=== PATIENT | female | born 1955 | race Caucasian/White ===

== ENCOUNTER → 2019-10-08 11:43 | Outpatient (CLI) | payer OTHER, SELFPAY ==
--- NOTE | ~2019-10-08 | XR_ITS ---
XR hand BI arthritis min 3V 10/08/2019 12:05 Indication: Polyarticular joint pain Procedure: 4 views of each hand Comparison: No prior studies for comparison. Findings: Right hand: There is mild osteoarthritis of the first CMC, MCP and IP joints. There is mild -moderate polyarticular osteoarthritis of the second-fifth MCP joints. There are mild degenerative ch anges of the second and fifth distal interphalangeal joints. No fracture or traumatic malalignment. Left hand: There are moderate degenerative changes of the first MCP joint. There is degenerative subc hondral cyst formation base of the first metacarpal. There is moderate osteoarthritis of the MCP join ts otherwise. There is mild osteoarthritis of the second and fifth DIP joint. Impression: 1: Mild-moderate polyarticular osteoarthritis bilaterally. Reviewed, dictated and finalized at location A. T SERVICES Impression: 1: Mild-moderate polyarticular osteoarthritis bilaterally.
== END ==
PROVIDERS: PCP Family Medicine; Visit Provider Nurse Practitioner
DX: M25.40 Effusion, unspecified joint (principal); M19.041 Primary osteoarthritis, right hand; M19.042 Primary osteoarthritis, left hand
CPT/HCPCS: 73130

== ENCOUNTER 2020-01-20 15:23 | Outpatient (CLI) | payer OTHER, SELFPAY ==
--- NOTE | ~2020-01-20 | XR_ITS ---
XR chest 2V DATE: 01/20/2020 15:43 INDICATION: Cough, shortness of breath. History of COPD. TECHNIQUE: PA and lateral views COMPARISON: None FINDINGS: Normal heart size. There is aortic arch and descending thoracic and abdominal aortic calcif ication. No hilar or mediastinal enlargement. Bilateral hyperinflation and relative flattening of the diaphragm, consistent with COPD. No pulmonary infiltrate or consolidation, pleural effusion or pulmonary vascular congestion or pneumo thorax. Old healed right rib fractures. Diffuse osteopenia. IMPRESSION: COPD No active cardiopulmonary disease Osteopenia Aortic atherosclerosis Reviewed, dictated and finalized at location A.
== END 2020-01-20 15:24 | disposition home or self-care (01) ==
PROVIDERS: PCP Nurse Practitioner; Visit Provider Internal Medicine
DX: R05 Cough (principal); M85.88 Other specified disorders of bone density and structure, other site; I70.0 Atherosclerosis of aorta
CPT/HCPCS: 71046

== ENCOUNTER 2020-05-10 07:55 | Outpatient (CLI) | payer OTHER, SELFPAY ==
--- NOTE | ~2020-05-10 | XR_ITS ---
EXAMINATION: XR chest 2V DATE: 05/10/2020 08:17 INDICATION: Cough. COVID-19 positive. TECHNIQUE: Frontal and lateral views of the chest were obtained. COMPARISON: Chest 2 views 01/20/2020 FINDINGS: The lungs are hyperexpanded with lucencies, consistent with emphysema. There is mild atelec tasis versus scarring at right lung base. No pleural effusion or pneumothorax. The heart size is norm al. There are multiple old healed right rib fractures. IMPRESSION: 1. Mild atelectasis versus scarring at right lung base. 2. Emphysema. Reviewed, dictated and finalized at location A.
== END 2020-05-10 07:56 | disposition home or self-care (01) ==
LOC: ANHIMG 08:04
PROVIDERS: PCP Nurse Practitioner; Visit Provider Nurse Practitioner
DX: R05 Cough (principal); R91.8 Other nonspecific abnormal finding of lung field; J43.9 Emphysema, unspecified
CPT/HCPCS: 71046

== ENCOUNTER 2020-06-12 14:27 | Outpatient (CLI) | payer OTHER, SELFPAY ==
--- NOTE | ~2020-06-12 | XR_ITS ---
EXAMINATION: XR scapula RT INDICATION: Right shoulder pain TECHNIQUE: Two views of the right scapula are obtained. COMPARISON: 06/29/2014 FINDINGS: There is no fracture, dislocation, or subluxation. The bones, soft tissues, and joint space s are normal. Heterotopic ossification is again noted superior to the acromioclavicular joint. Healed right-sided rib fractures are noted. IMPRESSION: 1. No acute osseous abnormality. Reviewed, dictated and finalized at location A.
== END 2020-06-12 14:28 | disposition home or self-care (01) ==
PROVIDERS: PCP Nurse Practitioner Family; Visit Provider Nurse Practitioner Family
DX: M89.8X1 Other specified disorders of bone, shoulder (principal)
CPT/HCPCS: 73010

== ENCOUNTER → 2020-08-23 10:13 | Outpatient (CLI) | payer OTHER, SELFPAY ==
--- NOTE | ~2020-08-23 | CT_ITS ---
EXAMINATION: CT abdomen wo con EXAM DATE: 08/23/2020 10:39 INDICATION: Abnormal right adrenal gland, lung field abnormality. TECHNIQUE: Spiral CT of the abdomen was performed without contrast. Axial, coronal and sagittal rosalba ges were reviewed. The dose-length product (DLP) for this examination was 120.61 mGy-cm. The exposu re was tailored according to patient size (auto mA exposure control), and iterative reconstruction (A SIR) was used as additional dose reduction technique. Correlation is made to Chest x-ray 05/10/2020 FINDINGS: There is a 9 mm right adrenal gland nodule measuring 16 Hounsfield units. Statistically mos t likely adenoma in absence of known primary malignancy. Liver, left adrenal gland, spleen and pancr eas are unremarkable. Gallbladder is unremarkable. No biliary obstruction. There is no nephrolithi asis or hydronephrosis. There is no retroperitoneal lymphadenopathy. The stomach and small bowel are unremarkable. There is large amount of colonic stool. No free intr aperitoneal gas. The heart is normal in size. There are no pericardial or pleural effusions. Evid ence of moderate hyperinflation and emphysema. Lung bases are clear. There are no osteoblastic or o steolytic lesions identified. IMPRESSION: 1. Subcentimeter right adrenal gland lesion likely adenoma. 2. Emphysema and hyperinflation. Reviewed, dictated and finalized at location A. 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
== END ==
PROVIDERS: PCP Nurse Practitioner Family; Visit Provider Nurse Practitioner Family
DX: R91.8 Other nonspecific abnormal finding of lung field (principal); E27.8 Other specified disorders of adrenal gland; J43.9 Emphysema, unspecified
CPT/HCPCS: 74150

== ENCOUNTER 2020-09-30 15:26 | Inpatient (IN) | payer OTHER, MEDICARE, SELFPAY ==
[2020-09-30] VITALS (8 sets, daily range): BP systolic 113–140; BP diastolic 46–63; PULSE 100–110; RESP 18–22; TEMP 37–37.9; O2SAT 89–98; BMI 19.8
--- NOTE | ~2020-09-30 | XR_ITS ---
EXAMINATION: XR chest 2V EXAM DATE: 09/30/2020 16:32 INDICATION: Left flank pain. Fever. History of COPD. TECHNIQUE: Frontal and lateral projections of the chest obtained and reviewed. Comparison is made to prior examination from 05/10/2020. FINDINGS: Interval development of extensive left lower lobe acute airspace disease, appearance is mo st consistent with bacterial pneumonia but please clinically correlate. The lungs are otherwise clear . There are no pleural effusions. The cardiomediastinal silhouette is within normal limits. There is no pneumothorax suspected. There are mild bony degenerative changes. There is aortic arterioscler osis. IMPRESSION: Multi segmental left lower lobe consolidation, most consistent with bacterial pneumonia. Reviewed, dictated and finalized at location A. NOPATHOLOGIST
--- NOTE | 2020-09-30 15:43 | ECG_ITS ---
Measurements Intervals [place] Rate: 99 P: 70 NE: 151 QRS: 38 QRSD: 94 T: 43 QT: 315 QTc: 405 Interpretive Statements SINUS RHYTHM DELAYED PRECORDIAL R/S TRANSITION BORDERLINE ECG Electronically Signed On 10-01-2020 7:35:25 GROUP COUNSELOR by Ephraim Romeo D.O.
[2020-09-30] MEDS: SODIUM CHLORIDE 0.9% IV 1,000 ML 999 ML IV CONT (16:04)
[2020-09-30 16:07] LABS: Basophils Percent Auto 0.2 % (0.2-1.2); Eosinophils Percent Auto 0.1 % (0-4.4); Hematocrit 29.1 % (37.0-47.0); Hemoglobin 9.9 g/dL (12.0-15.0); Immature Granulocyte Absolute 0.09 K/mm3 (0.00-0.031); Immature Granulocyte Percent A 0.5 % (0-0.5); Lymphocytes Absolute Auto 8.69 K/mm3 (0.9-3.2); Lymphocytes Percent Auto 43.7 % (18.3-44.2); Mean Corpuscular Hemoglobin 30.3 pg (26-34); Mean Platelet Volume 8.5 fl (7.4-10.4); Monocytes Absolute Auto 0.8 K/mm3 (0.1-0.6); Monocytes Percent Auto 3.8 % (2.6-8.5); Neutrophils Absolute Auto 10.3 K/mm3 (1.3-6.7); Neutrophils Percent Auto 51.7 % (45.5-73.1); Platelet Count Result 375 k/mm3 (150-375); Red Blood Count 3.27 M/mm3 (4.2-5.4); Red Cell Distribution Width 12.2 % (11.5-14.5); White Blood Count 19.9 K/mm3 (4.5-10.0)
[2020-09-30 16:07] LABS: Alveolar/Arterial O2 Gradient 58.1 mmHg; Base Excess ABG -2.8 mEq/l (+/-2.0); Fractional Inspired Oxygen 21 %; HCO3 ABG 20.9 mEq/l (22.0-26.0); Oxygen Content ABG 12.6 %vol (16.0-22.0); Oxygen Saturation ABG 88.5 % (95.0-100.0); Oxyhemoglobin 87.4 % THb (90.0-100.0); PCO2 ABG 32.5 mmHg (35.0-45.0); PO2 ABG 52.7 mmHg (80.0-100.0); PO2 FiO2 Ratio Arterial Blood 2.51 %; Site Drawn LEFT BRACHIAL; Total Hemoglobin 10.2 g/dL (12.0-18.0); pH ABG 7.427 (7.350-7.450)
[2020-09-30 16:08] LABS: Device ROOM AIR
[2020-09-30 16:18] LABS: Lactic Acid Reflex 0.8 mmol/L (0.7-2.1)
[2020-09-30 16:19] LABS: Prothrombin Time 14.2 Seconds (11.1-14.7)
[2020-09-30 16:20] LABS: Partial Thromboplastin Time 35.3 SECONDS (22.3-36.8)
[2020-09-30 16:28] LABS: Alanine Aminotransferase 17 U/L (4-35); Albumin Level 3.7 g/dL (3.5-5.1); Alkaline Phosphatase 74 U/L (38-126); Anion Gap 5 mmol/L (8-16); Aspartate Amino Transferase 23 U/L (14-36); Bilirubin,Total 0.5 mg/dL (0.2-1.3); Blood Urea Nitrogen 7 mg/dL (7-17); Calcium 9.1 mg/dL (8.4-10.2); Carbon Dioxide 25 mmol/L (22-30); Chloride 96 mmol/L (98-107); Estimated CRCL calculation 55 ml/min; Estimated Glomerular Filt Rate > 60; Glucose 155 mg/dL (65-105); Lipase 19 U/L (23-300); Potassium 4.1 mmol/L (3.4-5.0); Sodium 126 mmol/L (137-145)
--- NOTE | 2020-09-30 16:49 | ED.GENADULT ---
HPI - General Adult General Chief complaint: Back Pain/Injury Stated complaint: fever, l flank pain Time Seen by Provider: 09/30/20 15:37 Source: patient Mode of arrival: ambulatory Limitations: no limitations History of Present Illness HPI narrative: 65 years old white female presents with left lower chest and left flank sharp pain started 3 days ago. Associated with fever and dry cough. Patient reports the pain gets worse with deep breathing and certain movements. Better at rest. Tested positive for Covid April 2020, currently denying exposure to anybody having Covid. Related Data Allergies Allergy/AdvReac Type Severity Reaction Status Date / Time Sulfa (Sulfonamide Allergy Intermediate rash / Verified 09/30/20 15:36 Antibiotics) hives Penicillins Allergy Mild rash Verified 09/30/20 15:36 Review of Systems Review of Systems: Narrative: CONSTITUTIONAL: Denies fever, chills, or sweats. EYES: Denies visual changes, redness, or discharge. ENT: Denies rhinorrhea, congestion, sore throat, or otalgia. CARDIOVASCULAR: Denies chest pain, palpitations, or edema. RESPIRATORY: Denies cough or dyspnea. GASTROINTESTINAL: Denies abdominal pain, nausea, vomiting, or diarrhea. GENITOURINARY: Denies dysuria or hematuria. SKIN: Denies rash or itching. MUSCULOSKELETAL: Denies back pain, joint pain, or myalgia. NEUROLOGIC: Denies headache, numbness, or weakness. PSYCHIATRIC: Denies anxiety or depression. PMFSH Past Medical History Medical History (Updated 09/30/20 @ 17:18 by Anthony Swift MD) Chronic obstructive pulmonary disease Mild episode of recurrent major depressive disorder Persistent dry cough Tobacco use disorder, continuous Family History Family History Father Family history of suicide, Onset Age: 53 Mother Family history of chronic obstructive pulmonary disease, Onset Age: 76 Family history of congestive heart failure, Onset Age: 76 Social History Social History Smoking status: Former smoker Tobacco type: e-cigarettes/vaping Second hand tobacco smoke exposure: No Alcohol intake: never Gender identity (if verbalized by the patient): Female Exam Narrative: Exam Narrative: General appearance: Well-developed, well-nourished Skin: Normal color Head: Normocephalic, nontraumatic Eyes: Clear conjunctiva ENT: Oropharynx normal, ears normal, nose normal Neck: Supple, nontender Chest and respiratory: Airway patent, no respiratory distress, no accessory muscle use, decreased breath sound left lower lobe Heart: Regular rate/rhythm Abdomen: Soft, left flank and left lower ribs tenderness, no bruises, no swelling, no rash, no organomegaly, quiet bowel sounds Vascular: Normal peripheral pulses, normal capillary refill. Musculoskeletal: Normal range of motion, nontender back Neurologic: Alert and oriented ?3, AUTOMATIC LATHE SETTER is normal as tested, no gross motor deficit Course Course Emergency Course: Improving Vital Signs Vital signs: Vital Signs Temperature 37.4 C 09/30/20 15:28 Pulse Rate 110 H 09/30/20 15:28 Respiratory Rate 22 H 09/30/20 15:28 Blood Pressure 140/63 09/30/20 15:28 Pulse Oximetry 89 L 09/30/20 15:28 Temperature 37.4 C 09/30/20 15:28 Pulse Rate 110 H 09/30/20 15:28 Respiratory Rate 22 H 09/30/20 15:28 Blood Pressure 140/63 09/30/20 15:28 Pulse Oximetry 89 L 09/30/20 15:28 Medical Decision Making MDM Narrative Medical decision making narrative: Patient presents with shortness of breath, and fever. Pneumonia is my concern. Labs, chest x-ray, ABG on room air, blood
[2020-09-30 17:07] LABS: CRP 29.9 mg/dL (<1.0)
[2020-09-30 17:10] LABS: Add Urine Microscopic? YES; Appearance Urine Clear (Clear); Bilirubin Urine Negative (Negative); Blood Urine 1+ (Negative); Color Urine Yellow (Yellow); Glucose Urine UA 1+ mg/dL (Negative); Ketones Urine Negative (Negative); Leukocyte Esterase Ur Trace LEU/UL (Negative); Mucus Urine Rare /lpf; Nitrate Urine Negative (Negative); Protein Urine 1+ mg/dL (Negative); Specific Grav Ur 1.011 (1.001-1.035); Squamous Epithelial Cell Urine Few /hpf (Few); Urobilinogen Urine Negative mg/dL (<2.0); WBC Urine 0-3 /hpf
[2020-09-30] MEDS: ACETAMINOPHEN 325 MG TABLET 650 MG PO (17:13)
[2020-09-30] MEDS: ONDANSETRON INJ 4 MG/2 ML VIAL IV PUSH (17:30)
[2020-09-30] MEDS: MORPHINE SULFATE (*CRX) 4 MG/ML INJ IV PUSH (17:30)
[2020-09-30] MEDS: KETOROLAC 30 MG/ML VIAL (*BKC) IV PUSH (17:30)
[2020-09-30] MEDS: SODIUM CHLORIDE 0.9% IV 1,000 ML 60 ML IV CONT (17:35)
--- NOTE | 2020-09-30 17:52 | ADMGEN ---
This patient, Chencho Conn, was admitted to [facility] Surg Room 328-01 @ 1753. Patient/family oriented to hospital policies and general routines including ID bracelet, bed and alarms, visiting hours, pain management, procedures, bathroom and other care routines, personal items, smoking policy, room service/diet, and visiting hours. Information on how to activate the Rapid Response Team has been discussed. Patient/Family are encouraged to report perceived risks to care and to ask questions if they do not understand what they are told or what they should do.
--- NOTE | 2020-09-30 21:30 | PM.IMHP ---
H&P: HPI History of Present Illness Date/Time: 09/30/20 21:30 Chief Complaint: Fever, left-sided pain. Narrative: This is a pleasant 65-year-old female, former smoker who now vapes, with COPD/emphysema who presented to the emergency department earlier today from home with reports of fever and left-sided pain. She awoke on with left flank pain, body aches, and fever up to 102?, which have persisted for the last several days. The pain is described as sharp and shooting in nature, worse with deep inspiration, cough, and movement. She was seen at urgent care yesterday, concerned for urinary tract infection or kidney stone given the location of the pain however that was unremarkable. Her symptoms have continued and thus she came in for evaluation today. She was found to have a left lung pneumonia with moderate hyponatremia for which she is being admitted. At the time my evaluation she is receiving a nebulizer and reports having used her nebulizer and rescue inhaler a couple of times over the past 2 days due to increasing shortness of breath from baseline. She has also had a dry cough, nausea, and dry heaves. She had COVID in April 2020 and has not been exposed to any illnesses recently. She lives in her own home and has been off work for some time as she has a right shoulder injury and is currently on worker's compensation. Review of Systems Review of Systems: Narrative: No significant headache. She always has mild sinus congestion and postnasal drip. No otalgia or odynophagia. She denies dysphagia and concerns for aspiration. No vomiting or diarrhea. No dysuria or hematuria. No exertional chest pain. No melena or hematochezia. Except as documented, all other systems were reviewed and are negative. [facility] Past Medical History Medical History (Updated 09/30/20 @ 22:36 by Breann Shearer PA-C) Arthritis Chronic obstructive pulmonary disease COVID-19 (~04/2020) Emphysema of lung Gastroesophageal reflux disease Mild episode of recurrent major depressive disorder Persistent dry cough Right rotator cuff tear Scheduled for surgery sometime in early 2020. Tobacco use disorder, continuous Patient quit smoking in 2018 and has been vaping since that time. Surgical History Surgical History (Updated 09/30/20 @ 22:31 by Breann Shearer PA-C) History of arthroscopic knee surgery History of hysterectomy History of local excision of skin lesion Benign papilloma of the left upper lip. Status post excision of lipoma Mid upper back. Family History Family History Father Family history of suicide, Onset Age: 53 Mother Family history of congestive heart failure, Onset Age: 76 Family history of chronic obstructive pulmonary disease Daughter Seizure Social History Social History (Updated 09/30/20 @ 22:32 by Breann Shearer PA-C) Social History: The patient lives alone in [place] with her dog. She smoked a pack of cigarettes a day for 50 years and quit in 2019. Now vapes. No significant alcohol use. No illicit substance use. Her son George and daughter Katja are her surrogate decision makers and she wishes to be a full code. Smoking packs per day: 1 Smoking cigarettes per day: 20.0 Years smoked: 50 Smoking pack-years: 50.00 Smoking status: Current every day smoker Tobacco type: cigarettes and e-cigarettes/vaping Second hand tobacco smoke exposure: No Additional smoking assessment comments: former cig smoker, vapes currently Alcohol intake: never Substance use: former Substance use type: does not use Gender identity (if verbalized by the patient): Female Spiritual care concerns: No Meds Home Medications and Allergies Home Medications Medication Instructions Recorded Confirmed Type Advair Diskus 250 mcg-50 mcg/dose See Rx Instructions .ROUTE 07/26/20 09/30/20 Rx powder for inhalation .CO
[2020-09-30] MEDS: IPRATROPIUM BR 0.02% INH SOLN 0.5 MG/2.5 ML VIAL INHALATION (22:03)
[2020-09-30] MEDS: ALBUTEROL SULFATE NEB 2.5 MG/0.5 ML INH 5 MG INHALATION (22:03)
[2020-09-30 23:52] LABS: Sodium 128 mmol/L (137-145)
[2020-10-01] VITALS (13 sets, daily range): BP systolic 102–153; BP diastolic 52–89; PULSE 91–104; RESP 18–22; TEMP 37–38; O2SAT 92–100
[2020-10-01] MEDS: NICOTINE (*PBKC) 14 MG PATCH 1 PATCH TRANSDERM ×2 (00:58→08:48)
[2020-10-01] MEDS: traZODone HCL 25 MG TABLET BY MOUTH ×2 (00:59→22:03)
[2020-10-01 02:26] LABS: Sodium Urine Random 8 meq/L
[2020-10-01 02:27] LABS: Creatinine Urine 54.8 mg/dL
[2020-10-01 03:08] LABS: Iron 11 ug/dL (37-170)
[2020-10-01 03:17] LABS: Percent Iron Saturation 4 % (20-50)
[2020-10-01 04:24] LABS: Folic Acid > 20.0 ng/mL (2.76->20)
[2020-10-01 06:58] LABS: Hematocrit 27.2 % (37.0-47.0); Hemoglobin 8.9 g/dL (12.0-15.0); Mean Corpuscular HGB Conc 32.7 g/dl (32-36); Mean Corpuscular Hemoglobin 29.5 pg (26-34); Mean Corpuscular Volume 90.1 fl (80-100); Mean Platelet Volume 8.4 fl (7.4-10.4); Platelet Count Result 372 k/mm3 (150-375); Red Blood Count 3.02 M/mm3 (4.2-5.4); Red Cell Distribution Width 12.4 % (11.5-14.5); White Blood Count 17.9 K/mm3 (4.5-10.0)
[2020-10-01 07:31] LABS: Anion Gap 5 mmol/L (8-16); Blood Urea Nitrogen 7 mg/dL (7-17); Calcium 8.7 mg/dL (8.4-10.2); Carbon Dioxide 27 mmol/L (22-30); Chloride 98 mmol/L (98-107); Estimated CRCL calculation 58 ml/min; Estimated Glomerular Filt Rate > 60; Glucose 107 mg/dL (65-105); Magnesium 1.9 mg/dL (1.6-2.3); Potassium 4.1 mmol/L (3.4-5.0); Sodium 130 mmol/L (137-145)
[2020-10-01] MEDS: HYDROcodone/acetaminophen (*CRX) 5-325 MG TABLET 1 TAB PO ×2 (08:53→15:44)
[2020-10-01] MEDS: buPROPion HCL SR (12HR) 100 MG TABCR 200 MG PO ×2 (10:58→16:55)
--- NOTE | 2020-10-01 13:31 | PM.IMPN ---
Progress Note: A&P Assessment and Plan (1) Sepsis: Code(s): A41.9 - Sepsis, unspecified organism Status: Acute Assessment and Plan: Patient presents with complaints of left sided chest pain and fever. She met sepsis criteria on admission with fever, tachycardia, and leukocytosis in the setting of pneumonia. Lactic acid level is within normal limits. Follow closely (2) Community acquired pneumonia: Qualifiers: Laterality: left Lung location: lower lobe of lung Qualified Code(s): J18.9 - Pneumonia, unspecified organism Code(s): J18.9 - Pneumonia, unspecified organism Status: Acute Assessment and Plan: CXR showing LLL PNA. Doubt PE. She was started on azithromycin and ceftriaxone for presumed bacterial pneumonia. COVID-19 testing performed and is pending. BCx pending. Sputum culture ordered. Legionella, strep pneumoniae, and mycoplasma pending. WBC better today. Continue IV abx. (3) Chronic obstructive pulmonary disease: Code(s): J44.9 - Chronic obstructive pulmonary disease, unspecified Status: Chronic Assessment and Plan: Stable. Consider steroids for COPD but currently she is doing well on 2L. Wean O2 as tolerated. (4) Hyponatremia: Code(s): E87.1 - Hypo-osmolality and hyponatremia Status: Acute Assessment and Plan: For the hyponatremia, Ana 8 so suspect related to dehydration. Repeat Na level better. IV fluids have been stopped. Continue to follow (5) Normocytic anemia: Code(s): D64.9 - Anemia, unspecified Status: Acute Assessment and Plan: Hgb 9.9 on admission and has dropped to 8.9 today. Iron studies consistent with anemia of chronic disease. Last Hgb was normal in 2016 but not recent values. Continue to monitor. (6) Nicotine vapor product user: Code(s): Z72.0 - Tobacco use Status: Acute Assessment and Plan: Educated about the benefits of abstaining from all nicotine products. (7) DVT prophylaxis: Code(s): Z29.9 - Encounter for prophylactic measures, unspecified Status: Acute Assessment and Plan: Lovenox for DVT prophylaxis. Subjective Date/time seen: 10/01/20 13:31 Interval history: Date of service 10/01 65yo female with hx of COVID in April, COPD and ongoing tobacco use here for fever and left-sided pain. Patient still with the left flank pain that is pleuritic. Also with abd pain that she feels may be related to coughing. Persistent cough. Eating okay. No n/v/d. She states she has residual anosmia and dysgeusia from previous COVID infection. Exam Narrative: Exam Narrative: Tm 100.2 99.7 131/55 104 20 97% 2L Gen - thin female in NARD sitting up in bed Chest - very distant BS, no wheezing CV - RRR S1/S2 Abd - soft, diffusely tender to even light touch, +BS Ext - No pedal edema; no cords; negative Emeterio's Psych - Nml mood and affect Skin - Warm and dry Objective Data Vital Signs Vital Signs: Vital Signs - 24 hr 09/30/20 15:28 09/30/20 17:13 09/30/20 17:42 Temperature 99.4 F 100.2 F H Pulse Rate 110 H 105 H Respiratory Rate 22 H 18 Blood Pressure 140/63 117/46 L Pulse Oximetry 89 L 98 09/30/20 17:55 09/30/20 20:00 09/30/20 22:00 Temperature 99.0 F 98.6 F 98.6 F Pulse Rate 100 106 H 106 H Respiratory Rate 18 22 H 22 H Blood Pressure 113/48 L 113/50 L 113/50 L Pulse Oximetry 97 90 90 09/30/20 22:03 09/30/20 22:13 10/01/20 04:00 Temperature 100.0 F H Pulse Rate 105 H 103 H 100 Respiratory Rate 18 18 22 H Blood Pressure 153/52 H Pulse Oximetry 93 100 10/01/20 08:00 Temperature 99.7 F H Pulse Rate 104 H Respiratory Rate 20 Blood Pressure 131/55 L Pulse Oximetry 97 Intake/Output Intake/Output: Intake & Output 09/28/20 09/29/20 09/30/20 10/01/20 23:59 23:59 23:59 23:59 Intake Total 1050 400 Output Total 600 Balance 1050 -200 Meds/Results Medicatio
--- NOTE | 2020-10-01 14:06 | PCRCNOTE ---
Window of time for administration has passed. See next scheduled administration.
[2020-10-01] MEDS: ALBUTEROL SULFATE NEB 2.5 MG/0.5 ML INH 5 MG INHALATION ×2 (14:38→21:25)
[2020-10-01] MEDS: IPRATROPIUM BR 0.02% INH SOLN 0.5 MG/2.5 ML VIAL INHALATION ×2 (14:38→21:25)
[2020-10-01] MEDS: ALBUTEROL SULFATE (*SP) AEROSOL 1 PUFF INHALATION (17:15)
[2020-10-01 17:16] LABS: SARS-CoV-2 RNA PCR Negative
[2020-10-01] MEDS: FLUTICASONE/SALMETEROL 115-21 MCG INHALER 1 PUFF 2 PUFF INHALATION (17:20)
[2020-10-01] MEDS: IBUPROFEN 400 MG TABLET PO (17:40)
[2020-10-02] VITALS (10 sets, daily range): BP systolic 113–139; BP diastolic 49–69; PULSE 95–105; RESP 18–20; TEMP 36.8–37.4; O2SAT 92–97
[2020-10-02] MEDS: HYDROcodone/acetaminophen (*CRX) 5-325 MG TABLET 1 TAB PO ×3 (02:26→16:49)
[2020-10-02] MEDS: IPRATROPIUM BR 0.02% INH SOLN 0.5 MG/2.5 ML VIAL INHALATION ×4 (03:25→20:43)
[2020-10-02] MEDS: ALBUTEROL SULFATE NEB 2.5 MG/0.5 ML INH 5 MG INHALATION ×3 (03:25→20:43)
[2020-10-02 06:19] LABS: Basophils Percent Auto 0.2 % (0.2-1.2); Eosinophils Percent Auto 0.2 % (0-4.4); Hematocrit 24.4 % (37.0-47.0); Hemoglobin 8.1 g/dL (12.0-15.0); Immature Granulocyte Absolute 0.04 K/mm3 (0.00-0.031); Immature Granulocyte Percent A 0.3 % (0-0.5); Lymphocytes Absolute Auto 5.78 K/mm3 (0.9-3.2); Lymphocytes Percent Auto 46.8 % (18.3-44.2); Mean Corpuscular HGB Conc 33.2 g/dl (32-36); Mean Corpuscular Hemoglobin 29.9 pg (26-34); Mean Platelet Volume 7.9 fl (7.4-10.4); Monocytes Absolute Auto 0.6 K/mm3 (0.1-0.6); Monocytes Percent Auto 4.9 % (2.6-8.5); Neutrophils Absolute Auto 5.9 K/mm3 (1.3-6.7); Neutrophils Percent Auto 47.6 % (45.5-73.1); Platelet Count Result 345 k/mm3 (150-375); Red Blood Count 2.71 M/mm3 (4.2-5.4); Red Cell Distribution Width 12.4 % (11.5-14.5); White Blood Count 12.3 K/mm3 (4.5-10.0)
[2020-10-02 06:32] LABS: Anion Gap 3 mmol/L (8-16); Blood Urea Nitrogen 7 mg/dL (7-17); Calcium 8.4 mg/dL (8.4-10.2); Carbon Dioxide 30 mmol/L (22-30); Chloride 100 mmol/L (98-107); Estimated CRCL calculation 58 ml/min; Estimated Glomerular Filt Rate > 60; Glucose 124 mg/dL (65-105); Phosphorus 2.3 mg/dL (2.5-4.5); Potassium 3.8 mmol/L (3.4-5.0); Sodium 133 mmol/L (137-145)
[2020-10-02] MEDS: NICOTINE (*PBKC) 14 MG PATCH 1 PATCH TRANSDERM (09:43)
[2020-10-02] MEDS: buPROPion HCL SR (12HR) 100 MG TABCR 200 MG PO ×2 (09:43→16:49)
[2020-10-02] MEDS: POTASSIUM/PHOSPHORUS/SODIUM 1.5 GM PACKET 1 PACKET PO (09:43)
[2020-10-02] MEDS: FLUTICASONE/SALMETEROL 115-21 MCG INHALER 1 PUFF 2 PUFF INHALATION ×2 (09:48→20:21)
--- NOTE | 2020-10-02 11:43 | PCRCNOTE ---
Window of time for administration has passed. See next scheduled administration.[id number]
--- NOTE | 2020-10-02 16:49 | PM.IMPN ---
Progress Note: A&P Assessment and Plan (1) Sepsis: Code(s): A41.9 - Sepsis, unspecified organism Status: Acute Assessment and Plan: Patient presents with complaints of left sided chest pain and fever. She met sepsis criteria on admission with fever, tachycardia, and leukocytosis in the setting of pneumonia. Lactic acid level is within normal limits. Follow closely (2) Community acquired pneumonia: Qualifiers: Laterality: left Lung location: lower lobe of lung Qualified Code(s): J18.9 - Pneumonia, unspecified organism Code(s): J18.9 - Pneumonia, unspecified organism Status: Acute Assessment and Plan: CXR showing LLL PNA. Doubt PE. She was started on azithromycin and ceftriaxone for presumed bacterial pneumonia. COVID-19 testing negative. BCx NGTD. Sputum culture ordered. Legionella, strep pneumoniae, and mycoplasma pending. WBC better again today. Continue IV abx. (3) Chronic obstructive pulmonary disease: Code(s): J44.9 - Chronic obstructive pulmonary disease, unspecified Status: Chronic Assessment and Plan: Stable. Consider steroids for COPD but currently she is doing well on 2L. Wean O2 as tolerated. She is requesting discharge. Ed order home O2 evaluation for possible discharge home tomorrow with O2. (4) Hyponatremia: Code(s): E87.1 - Hypo-osmolality and hyponatremia Status: Acute Assessment and Plan: For the hyponatremia, Ana 8 so suspect related to dehydration. Repeat Na level continues to improve. IV fluids have been stopped. Continue to follow (5) Normocytic anemia: Code(s): D64.9 - Anemia, unspecified Status: Acute Assessment and Plan: Hgb 9.9 on admission and has dropped to 8.1 today. Iron studies consistent with anemia of chronic disease. Last Hgb was normal in 2016 but no recent values. Continue to monitor. (6) Nicotine vapor product user: Code(s): Z72.0 - Tobacco use Status: Acute Assessment and Plan: Educated about the benefits of abstaining from all nicotine products. (7) DVT prophylaxis: Code(s): Z29.9 - Encounter for prophylactic measures, unspecified Status: Acute Assessment and Plan: Lovenox for DVT prophylaxis. Subjective Date/time seen: 10/02/20 16:49 Interval history: Date of service 10/02 65yo female with hx of COVID in April, COPD and ongoing tobacco use here for fever and left-sided pain. Patient feels a lot better. Slight cough but still productive. Eating okay. Has back/abd mid-section pain that is positional and pleuritic. Requesting discharge. Exam Narrative: Exam Narrative: Tm 100.4 98.2 139/67 98 20 92% 2L Gen - thin female in NARD sitting up in bed Chest - very distant BS. no conversational dyspnea CV - RRR S1/S2 Abd - soft, NT/ND, +BS Ext - No pedal edema Psych - Nml mood and affect Skin - Warm and dry Objective Data Vital Signs Vital Signs: Vital Signs - 24 hr 10/01/20 17:12 10/01/20 17:40 10/01/20 18:40 Temperature 100.4 F H 100.4 F H 99.0 F Pulse Rate Respiratory Rate Blood Pressure Pulse Oximetry 10/01/20 20:00 10/01/20 21:25 10/01/20 21:35 Temperature Pulse Rate 104 H 100 Respiratory Rate 18 20 Blood Pressure Pulse Oximetry 95 93 10/01/20 22:00 10/02/20 03:26 10/02/20 06:00 Temperature 98.6 F 98.3 F Pulse Rate 91 105 H 100 Respiratory Rate 20 20 20 Blood Pressure 120/89 113/49 L Pulse Oximetry 96 96 10/02/20 08:00 Temperature Pulse Rate Respiratory Rate Blood Pressure Pulse Oximetry 95 Intake/Output Intake/Output: Intake & Output 09/29/20 09/30/20 10/01/20 10/02/20 23:59 23:59 23:59 23:59 Intake Total 1050 1480 830 Output Total 2200 Balance 1050 -720 830 Meds/Results Medications: Active Medications Generic Name Dose Route Start Last Admin Trade Name Freq PRN Reason Stop Dose Admin
[2020-10-02] MEDS: ENOXAPARIN 40 MG/0.4 ML SYRINGE SUB-Q (20:30)
[2020-10-02] MEDS: traZODone HCL 25 MG TABLET BY MOUTH (22:36)
[2020-10-03] VITALS (9 sets, daily range): BP systolic 140–144; BP diastolic 58; PULSE 84–116; RESP 18–20; TEMP 37.1–37.2; O2SAT 86–98
[2020-10-03] MEDS: IPRATROPIUM BR 0.02% INH SOLN 0.5 MG/2.5 ML VIAL INHALATION ×2 (03:38→09:17)
[2020-10-03] MEDS: ALBUTEROL SULFATE NEB 2.5 MG/0.5 ML INH 5 MG INHALATION ×2 (03:38→09:17)
[2020-10-03 06:08] LABS: Hematocrit 24.4 % (37.0-47.0); Hemoglobin 8.2 g/dL (12.0-15.0); Mean Corpuscular HGB Conc 33.6 g/dl (32-36); Mean Corpuscular Hemoglobin 29.9 pg (26-34); Mean Corpuscular Volume 89.1 fl (80-100); Mean Platelet Volume 8.1 fl (7.4-10.4); Platelet Count Result 409 k/mm3 (150-375); Red Blood Count 2.74 M/mm3 (4.2-5.4); Red Cell Distribution Width 12.3 % (11.5-14.5); White Blood Count 12.5 K/mm3 (4.5-10.0)
[2020-10-03 06:20] LABS: Anion Gap 3 mmol/L (8-16); Blood Urea Nitrogen 5 mg/dL (7-17); Calcium 8.3 mg/dL (8.4-10.2); Carbon Dioxide 33 mmol/L (22-30); Chloride 100 mmol/L (98-107); Estimated CRCL calculation 69 ml/min; Estimated Glomerular Filt Rate > 60; Glucose 132 mg/dL (65-105); Potassium 3.1 mmol/L (3.4-5.0); Sodium 136 mmol/L (137-145)
[2020-10-03] MEDS: FLUTICASONE/SALMETEROL 115-21 MCG INHALER 1 PUFF 2 PUFF INHALATION (08:49)
[2020-10-03] MEDS: NICOTINE (*PBKC) 14 MG PATCH 1 PATCH TRANSDERM (08:50)
[2020-10-03] MEDS: ENOXAPARIN 40 MG/0.4 ML SYRINGE SUB-Q (08:50)
[2020-10-03] MEDS: buPROPion HCL SR (12HR) 100 MG TABCR 200 MG PO (08:51)
[2020-10-03] MEDS: HYDROcodone/acetaminophen (*CRX) 5-325 MG TABLET 1 TAB PO (10:30)
[2020-10-03] MEDS: POTASSIUM CHLORIDE 20 MEQ TABLET 40 MEQ PO (10:31)
--- NOTE | 2020-10-03 12:02 | HOMEO2EVAL ---
Home Oxygen Evaluation RC: Home Oxygen (O2) Evaluation Start: 10/02/20 17:45 Freq: ONCE Status: Active Protocol: RPE Activity Type Activity Date Activity User E-Sign Co-Sign Detail Recorded Client Recorded Date Recorded By Document 10/03/20 11:30 [email or web address] [email or web address] 10/03/20 12:02 EMILIE Document 10/03/20 11:33 EMILIE [email or web address] 10/03/20 12:02 EMILIE Document 10/03/20 11:36 EMILIE [email or web address] 10/03/20 12:02 EMILIE Document 10/03/20 11:45 EMILIE [email or web address] 10/03/20 12:02 EMILIE 10/03/20 10/03/20 10/03/20 11:30 11:33 11:36 Home O2 Evaluation Test Phase Resting Exercise Exercise Oxygen Delivery Room Air Room Air Nasal Cannula Oxygen Flow Rate (L/min) 1 Pulse Oximetry (90-100 %) 92 86 L 91 Pulse Rate (60-100 beats/min) 96 116 H Ambulation Distance (feet) Home Oxygen Evaluation Comments Treatment Charges O2 Evaluation 10/03/20 11:45 Home O2 Evaluation Test Phase Resting Oxygen Delivery Room Air Oxygen Flow Rate (L/min) Pulse Oximetry (90-100 %) 93 Pulse Rate (60-100 beats/min) Ambulation Distance (feet) 100 Home Oxygen Evaluation Comments PT REQUIRES 1 LITER HOME O2 WITH EXERTION ONLY. Treatment Charges
--- NOTE | 2020-10-03 18:28 | PM.DS ---
DS: Admitting Diagnosis Admitting Diagnosis Admitting Diagnosis: Chest pain and shortness of breath secondary to pneumonia DS: Discharge Diagnosis Discharge Diagnosis (1) Sepsis: Code(s): A41.9 - Sepsis, unspecified organism Status: Acute Assessment and Plan: Patient presented with complaints of left sided chest pain and fever. She met sepsis criteria on admission with fever, tachycardia, and leukocytosis in the setting of pneumonia. Lactic acid level is within normal limits. Secondary to pneumonia (2) Community acquired pneumonia: Qualifiers: Laterality: left Lung location: lower lobe of lung Qualified Code(s): J18.9 - Pneumonia, unspecified organism Code(s): J18.9 - Pneumonia, unspecified organism Status: Acute Assessment and Plan: CXR showing LLL PNA. . She was started on azithromycin and ceftriaxone for bacterial pneumonia. COVID-19 testing performed and was negative. BCx negative. Sputum culture ordered. Legionella, strep pneumoniae, and mycoplasma pending. Finished 4 days of IV ceftriaxone with azithromycin and will have 4 days p.o. levofloxacin as an outpatient Follow-up with primary care within 2 weeks and eventual repeat chest x-ray to ensure total resolution (3) Chronic obstructive pulmonary disease: Code(s): J44.9 - Chronic obstructive pulmonary disease, unspecified Status: Chronic Assessment and Plan: Steadily improved and was on room air at rest before discharge satting 91-93% but still desaturated to 86% with exertion and received home O2 for exertion at home at 1 L (4) Hyponatremia: Code(s): E87.1 - Hypo-osmolality and hyponatremia Status: Acute Assessment and Plan: For the hyponatremia, Ana 8 so suspect related to dehydration. Repeat Na level better after IV fluids, 136 day of discharge (5) Normocytic anemia: Code(s): D64.9 - Anemia, unspecified Status: Acute Assessment and Plan: Hgb 9.9 on admission and has dropped to 8.2 after hydration.. Iron studies consistent with anemia of chronic disease. Last Hgb was normal in 2016 but not recent values. Continue to monitor. With repeat CBC and BMP within 2 weeks after discharge (6) Nicotine vapor product user: Code(s): Z72.0 - Tobacco use Status: Acute Assessment and Plan: Educated about the benefits of abstaining from all nicotine products. DS: Summary Hospital Course Hospital Course: 65-year-old white female with COPD admitted with left-sided pleuritic chest pain and found to have pneumonia. Treated with ceftriaxone and azithromycin while here with improvement. Repeat COVID testing was negative. Blood cultures no growth. Receive 4 days IV antibiotics here and will have 4 days p.o. levofloxacin on discharge. Follow-up with primary care within 2-3 weeks and have repeat basic and CBC drawn then also Desaturated slightly with exertion and on discharge will still have 1 L nasal cannula with activity at home Time Spent with Patient Time attestation: Total time spent providing and/or coordinating discharge services: 35 minutes Exam Narrative: Exam Narrative: Condition on discharge Blood pressure 140/58 pulse is 90 saturating 91-93% on room air afebrile Lungs very faint crackle left posterior base distant breath sounds CV regular rate rhythm Abdomen soft nontender Extremities without edema Up in about feeling much better in stable condition able to be discharged home with 1 L nasal cannula for exertion DS: Data Data Completed and Pending Labs on day of discharge: Labs from last 24 hours 10/03/20 10/03/20 05:44 05:44 WBC 12.5 H RBC 2.74 L Hgb 8.2 L Hct 24.4 L MCV 89.1 MCH 29.9 MCHC 33.6 RDW 12.3 Plt Count 409 H MPV 8.1 Sodium 136 L Potassium 3.1 L Chloride 100 Carbon Dioxide 33 H Anion Gap 3 L BUN 5 L Creatinine 0.50 L Estim Creat Clear Calc 69 Estimated
[2020-10-04 14:31] LABS: Pneumococcal Antigen Urine Not Detected (Not Detected)
[2020-10-04 19:28] LABS: Legionella pneumophila Ag Ur Not Detected (Not Detected)
[2020-10-06 05:13] LABS: Osmolality, Urine 211 mOsm/kg (50-1200)
== END 2020-10-03 15:07 | disposition home or self-care (01) | DRG 194 ==
LOC: ANHED 17:26 → ANH3MEDSUR 10-02 02:36
PROVIDERS: Physician Assistant; Admitting Provider Internal Medicine; Emergency Provider Emergency Medicine; PCP Nurse Practitioner Family; Visit Provider Internal Medicine
DX: J18.9 Pneumonia, unspecified organism (principal); E22.2 Syndrome of inappropriate secretion of antidiuretic hormone; J44.0 Chronic obstructive pulmonary disease with (acute) lower respiratory infection; Z20.822 Contact with and (suspected) exposure to COVID-19; D64.9 Anemia, unspecified; D63.8 Anemia in other chronic diseases classified elsewhere
CPT/HCPCS: 36415; 36600; 71046; 80048; 80053; 80069; 81001; 82570; 82607; 82728; 82746; 82805; 83540; 83550; 83605; 83690; 83735; 83930; 83935; 84295; 84300; 84443; 85025; 85027; 85610; 85730; 86140; 86738; 87040; 87449; 87899; 93005; 94618; 94640; 96360; 96361; 96374; 96375; 97161; 97165; 99285; A9270; C9803; J0456; J0696; J1650; J1885; J2270; J2405; J7030; U0003; U0005

== ENCOUNTER → 2020-10-23 08:56 | Outpatient (CLI) | payer OTHER, SELFPAY ==
--- NOTE | ~2020-10-23 | XR_ITS ---
XR chest 2V DATE: 10/23/2020 09:06 INDICATION: Pneumonia TECHNIQUE: PA and lateral views COMPARISON: 09/30/2020 PA and lateral chest FINDINGS: There is left lower lobe patchy infiltrate, improved since 09/30/2020. The lungs are hyperinflated with relative flattening the diaphragm, suggesting COPD. Normal heart size. Aortic arch calcification. There is minimal if any pleural effusion. No pulmonary vascular congestion or pneumothorax. No hilar or mediastinal enlargement. There is a prominent amount of fecal material in the colon. IMPRESSION: Improved left lower lobe infiltrate since 09/30/2020 Reviewed, dictated and finalized at location A. 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
== END ==
PROVIDERS: PCP Nurse Practitioner Family; Visit Provider Nurse Practitioner Family
DX: J18.9 Pneumonia, unspecified organism (principal)
CPT/HCPCS: 71046

== ENCOUNTER 2021-03-09 11:21 | Outpatient (CLI) | payer OTHER, SELFPAY ==
[2021-03-09 11:49] LABS: Basophils Absolute Auto 0.1 K/mm3 (0.0-0.1); Basophils Percent Auto 0.5 % (0.2-1.2); Eosinophils Absolute Auto 0.3 K/mm3 (0-0.3); Eosinophils Percent Auto 1.9 % (0-4.4); Hematocrit 39.2 % (37.0-47.0); Hemoglobin 12.4 g/dL (12.0-15.0); Immature Granulocyte Absolute 0.03 K/mm3 (0.00-0.031); Immature Granulocyte Percent A 0.2 % (0-0.5); Lymphocytes Absolute Auto 12.08 K/mm3 (0.9-3.2); Lymphocytes Percent Auto 70.8 % (18.3-44.2); Mean Corpuscular HGB Conc 31.6 g/dl (32-36); Mean Corpuscular Hemoglobin 28.4 pg (26-34); Mean Corpuscular Volume 89.9 fl (80-100); Mean Platelet Volume 8.2 fl (7.4-10.4); Monocytes Absolute Auto 1.1 K/mm3 (0.1-0.6); Monocytes Percent Auto 6.4 % (2.6-8.5); Neutrophils Absolute Auto 3.5 K/mm3 (1.3-6.7); Neutrophils Percent Auto 20.2 % (45.5-73.1); Platelet Count Result 320 k/mm3 (150-375); Red Blood Count 4.36 M/mm3 (4.2-5.4); Red Cell Distribution Width 13.3 % (11.5-14.5); White Blood Count 17.1 K/mm3 (4.5-10.0)
[2021-03-09 12:02] LABS: Alanine Aminotransferase 16 U/L (4-35); Albumin Level 4.6 g/dL (3.5-5.1); Alkaline Phosphatase 79 U/L (38-126); Anion Gap 6 mmol/L (8-16); Aspartate Amino Transferase 30 U/L (14-36); Bilirubin,Total 0.3 mg/dL (0.2-1.3); Blood Urea Nitrogen 10 mg/dL (7-17); Calcium 9.7 mg/dL (8.4-10.2); Carbon Dioxide 30 mmol/L (22-30); Chloride 103 mmol/L (98-107); Estimated Glomerular Filt Rate > 60; Glucose 96 mg/dL (65-105); Lipase 80 U/L (23-300); Potassium 4.2 mmol/L (3.4-5.0); Sodium 139 mmol/L (137-145)
== END 2021-03-09 11:22 | disposition home or self-care (01) ==
PROVIDERS: PCP Nurse Practitioner Family; Visit Provider Nurse Practitioner Family
DX: R10.12 Left upper quadrant pain (principal)
CPT/HCPCS: 36415; 80053; 83690; 85025

== ENCOUNTER → 2021-03-15 11:19 | Outpatient (CLI) | payer SELFPAY ==
--- NOTE | ~2021-03-15 | CT_ITS ---
EXAMINATION: CT abdomen wo con DATE: 03/15/2021 11:36 INDICATION: Left upper quadrant abdominal pain. TECHNIQUE: Computed tomography (CT) of the abdomen was performed without intravenous contrast. Automa artie exposure control and iterative reconstruction technique were employed. The dose-length product wa s 131.44 mGy-cm. COMPARISON: CT abdomen 08/23/2020 FINDINGS: The visualized portions of the lung bases demonstrate emphysema. There is mild atelectasis in left lower lobe. There is an 8 mm nodule in left lower lobe. No pleural effusion. The heart size i s normal. No pericardial effusion. The liver, gallbladder, spleen, pancreas, adrenal glands, and righ t kidney are normal. There is a 1.9 cm cyst in left kidney. There is a left-sided lumbar hernia conta ining fat. There are no dilated loops of bowel. There is mild lumbar spondylosis. IMPRESSION: 1. Left-sided lumbar hernia containing fat. 2. 8 mm left lower lobe pulmonary nodule suspicious for primary bronchogenic carcinoma. Further evalu ation is recommended with PET/CT or 3 month noncontrast low-dose chest CT. Reviewed, dictated and finalized at location A. IMPRESSION: 1. Left-sided lumbar hernia containing fat. 2. 8 mm left lower lobe pulmonary nodule suspicious for primary bronchogenic ca rcinoma. Further evaluation is recommended with PET/CT or 3 month noncontrast l ow-dose chest CT.
== END ==
PROVIDERS: PCP Nurse Practitioner Family; Visit Provider Nurse Practitioner Family
DX: R10.12 Left upper quadrant pain (principal); K45.8 Other specified abdominal hernia without obstruction or gangrene; R91.1 Solitary pulmonary nodule
CPT/HCPCS: 74150

== ENCOUNTER 2021-04-12 08:58 | Outpatient (CLI) | payer OTHER, SELFPAY ==
--- NOTE | ~2021-04-12 | PE_ITS ---
EXAMINATION: PET skull to mid thigh DATE: 04/12/2021 11:50 INDICATION: Lung nodule. TECHNIQUE: Blood glucose level was 96 mg/dL. 9.394 mCi of 18-fluorodeoxyglucose (18-FDG) was administ ered i.v. Low dose computed tomography (CT) images were acquired from the base of the brain to the pr oximal thighs for attenuation correction and anatomic localization. Automated exposure control was em ployed. Dose-length product (DLP) was 247 mGy-cm. Positron emission tomography (PET) images were acqu ired in the same distribution. COMPARISON: CT abdomen 03/15/2021 FINDINGS: Head/neck: There is increased activity in a right paraspinal muscle without CT correlate, likely phys iologic. There are no pathologically enlarged lymph nodes. Chest: There is moderate emphysema. There is a 6 mm nodule in right lower lobe without increased acti vity. There is a 9 mm nodule in left lower lobe without increased activity. No pleural effusion. The heart size is normal. No pericardial effusion. There is a 12 x 17 mm right paratracheal lymph node wi thout increased activity, likely reactive. Abdomen/pelvis/proximal thighs: The liver, gallbladder, spleen, pancreas, adrenal glands, and kidneys are normal. There are no dilated loops of bowel. There are no pathologically enlarged lymph nodes. T here is no free intraperitoneal fluid. There is a left-sided lumbar hernia containing fat. No osseous malignancy. IMPRESSION: 1. 9 mm pulmonary nodule without increased activity, probably benign. Noncontrast low-dose chest CT i s recommended in 6 months. Reviewed, dictated and finalized at location A. IMPRESSION: 1. 9 mm pulmonary nodule without increased activity, probably benign. Noncontra st low-dose chest CT is recommended in 6 months.
[2021-04-12 09:37] LABS: Glucose Point of Care 96 mg/dl (65-105)
== END 2021-04-12 08:59 | disposition home or self-care (01) ==
LOC: ANHIMG 09:01
PROVIDERS: PCP Nurse Practitioner Family; Visit Provider Internal Medicine Pulmonary Disease
DX: R91.1 Solitary pulmonary nodule (principal)
CPT/HCPCS: 78815; A9552

== ENCOUNTER 2021-06-12 10:35 | Outpatient (CLI) | payer OTHER, SELFPAY ==
[2021-06-12 10:53] LABS: Basophils Absolute Auto 0.1 K/mm3 (0.0-0.1); Basophils Percent Auto 0.3 % (0.2-1.2); Eosinophils Absolute Auto 0.3 K/mm3 (0-0.3); Eosinophils Percent Auto 1.2 % (0-4.4); Hemoglobin 12.3 g/dL (12.0-15.0); Immature Granulocyte Absolute 0.02 K/mm3 (0.00-0.031); Immature Granulocyte Percent A 0.1 % (0-0.5); Lymphocytes Absolute Auto 17.03 K/mm3 (0.9-3.2); Lymphocytes Percent Auto 81.8 % (18.3-44.2); Mean Corpuscular HGB Conc 31.5 g/dl (32-36); Mean Corpuscular Hemoglobin 28.7 pg (26-34); Mean Corpuscular Volume 91.1 fl (80-100); Monocytes Absolute Auto 0.3 K/mm3 (0.1-0.6); Monocytes Percent Auto 1.6 % (2.6-8.5); Neutrophils Absolute Auto 3.1 K/mm3 (1.3-6.7); Platelet Count Result 409 k/mm3 (150-375); Red Blood Count 4.28 M/mm3 (4.2-5.4); Red Cell Distribution Width 13.2 % (11.5-14.5); White Blood Count 20.8 K/mm3 (4.5-10.0)
[2021-06-12 11:02] LABS: Atypical Lymphocytes Present; Platelet Estimate Increased (Adequate)
[2021-06-12 17:46] LABS: Alanine Aminotransferase 24 U/L (4-35); Albumin Level 4.6 g/dL (3.5-5.1); Alkaline Phosphatase 75 U/L (38-126); Anion Gap 7 mmol/L (8-16); Aspartate Amino Transferase 60 U/L (14-36); Bilirubin,Total 0.4 mg/dL (0.2-1.3); Blood Urea Nitrogen 10 mg/dL (7-17); Calcium 9.7 mg/dL (8.4-10.2); Carbon Dioxide 30 mmol/L (22-30); Chloride 100 mmol/L (98-107); Estimated Glomerular Filt Rate > 60; Glucose 84 mg/dL (65-110); Lactate Dehydrogenase 458 U/L (313-618); Potassium 4.2 mmol/L (3.4-5.0); Sodium 137 mmol/L (137-145)
== END 2021-06-12 10:36 | disposition home or self-care (01) ==
LOC: ANHLAB 10:39
PROVIDERS: PCP Nurse Practitioner Family; Visit Provider Internal Medicine Hematology & Oncology
DX: C91.10 Chronic lymphocytic leukemia of B-cell type not having achieved remission (principal)
CPT/HCPCS: 36415; 80053; 83615; 85025

== ENCOUNTER 2021-07-23 06:50 | Emergency (ER) | payer OTHER, SELFPAY ==
--- NOTE | ~2021-07-23 | XR_ITS ---
EXAMINATION: XR chest 2V EXAM DATE: 07/23/2021 07:13 INDICATION: Shortness of breath. H/O COPD, home oxygen. TECHNIQUE: Frontal and lateral projections of the chest obtained and reviewed. Comparison is made to prior examination from 10/13/2020. FINDINGS: The lungs are hyperinflated which can be seen with chronic obstructive pulmonary disease ( a clinical diagnosis of functional impairment), but is not diagnostic of it. There is aortic arterios clerosis. Small amount of lingular atelectasis or scarring. The lungs are otherwise clear. There are no pleura l effusions. The cardiomediastinal silhouette is within normal limits. There is no pneumothorax alonso pected. Old right rib fractures. IMPRESSION: 1. No acute cardiopulmonary findings. 2. Hyperinflation. Reviewed, dictated and finalized at location B. ECTION OFFICER HEAD
--- NOTE | 2021-07-23 06:53 | ECG_ITS ---
Measurements Intervals [place] Rate: 87 P: 80 OK: 161 QRS: 77 QRSD: 85 T: 69 QT: 328 QTc: 395 Interpretive Statements SINUS RHYTHM WITH MARKED SINUS ARRHYTHMIA BASELINE ARTIFACT- I, II, III, AVR, AVL, AVF, V2 NORMAL ECG Electronically Signed On 07-23-2021 8:47:07 BLOOD DONOR RECRUITER SUPERVISOR by Ephraim Romeo D.O.
[2021-07-23 06:55] VITALS: BP 151/88; PULSE 85; RESP 29; TEMP 36.6; O2SAT 92
[2021-07-23 07:07] VITALS: O2SAT 94
[2021-07-23 07:19] LABS: Anion Gap 6 mmol/L (8-16); Blood Urea Nitrogen 15 mg/dL (7-17); Carbon Dioxide 30 mmol/L (22-30); Chloride 101 mmol/L (98-107); Estimated CRCL calculation 48 ml/min; Estimated Glomerular Filt Rate > 60; Glucose 104 mg/dL (65-110); Potassium 4.8 mmol/L (3.4-5.0); Sodium 137 mmol/L (137-145)
--- NOTE | 2021-07-23 07:23 | ED.SOB ---
HPI - SOB/Dyspnea General Chief Complaint: Shortness of Breath/Dyspnea Stated Complaint: sob Time Seen by Provider: 07/23/21 07:20 Source: patient and old records reviewed Mode of arrival: ambulatory Limitations: no limitations History of Present Illness HPI Narrative: Patient presents with increased shortness of breath and coughing over the last 3 to 4 days. History of COPD with chronic coughing. No smoking. Patient had Covid infection April 2020, fully vaccinated for COVID-24 Jan 2021. Patient denies any fever or chills. Related Data Home Medications Medication Instructions Recorded Confirmed ibuprofen 800 mg PO Q6H PRN 09/30/20 06/25/21 Allergies Allergy/AdvReac Type Severity Reaction Status Date / Time Sulfa (Sulfonamide Allergy Intermediate rash / Verified 07/23/21 07:07 Antibiotics) hives Penicillins Allergy Mild rash Verified 07/23/21 07:07 Review of Systems Review of Systems: CONSTITUTIONAL: Denies fever, chills, or sweats. EYES: Denies visual changes, redness, or discharge. ENT: Denies rhinorrhea, congestion, sore throat, or otalgia. CARDIOVASCULAR: Denies chest pain, palpitations, or edema. RESPIRATORY: Denies cough or dyspnea. GASTROINTESTINAL: Denies abdominal pain, nausea, vomiting, or diarrhea. GENITOURINARY: Denies dysuria or hematuria. SKIN: Denies rash or itching. MUSCULOSKELETAL: Denies back pain, joint pain, or myalgia. NEUROLOGIC: Denies headache, numbness, or weakness. PSYCHIATRIC: Denies anxiety or depression. [facility] Past Medical History Medical History Abnormal CT scan, lung Arthritis Cellulitis of hand Chronic obstructive pulmonary disease Community acquired pneumonia COVID-19 (~04/2020) Elevated WBC count Emphysema of lung Gastroesophageal reflux disease Hyponatremia LUQ pain Mild episode of recurrent major depressive disorder Persistent dry cough Right rotator cuff tear Scheduled for surgery sometime in early 2020. Sepsis Tobacco use disorder, continuous Patient quit smoking in 2018 and has been vaping since that time. Surgical History Surgical History History of arthroscopic knee surgery History of hysterectomy History of local excision of skin lesion Benign papilloma of the left upper lip. Status post excision of lipoma Mid upper back. Family History Family History Father Family history of suicide, Onset Age: 53 Mother Family history of congestive heart failure, Onset Age: 76 Family history of chronic obstructive pulmonary disease Daughter Seizure Social History Social History Social History: The patient lives alone in [place] with her dog. She smoked a pack of cigarettes a day for 50 years and quit in 2019. Now vapes. No significant alcohol use. No illicit substance use. Her son George and daughter Katja are her surrogate decision makers and she wishes to be a full code. Smoking packs per day: 1 Smoking cigarettes per day: 20.0 Years smoked: 50 Smoking pack-years: 50.00 Smoking status: Former smoker (currently uses vap ) Tobacco type: cigarettes and e-cigarettes/vaping Second hand tobacco smoke exposure: No Additional smoking assessment comments: former cig smoker, vapes currently Alcohol intake: never Substance use: former Substance use type: does not use Gender identity (if verbalized by the patient): Female Spiritual care concerns: No Exam Narrative: General appearance: Well-developed, malnourished, does not look in pain or respiratory distress Skin: Normal color Head: Normocephalic, nontraumatic Eyes: Clear conjunctiva ENT: Oropharynx normal, ears normal, nose normal Neck: Supple, nontender Chest and respiratory: Scattered wheezing and rhonchi, basal dry rales bilaterally Heart:
[2021-07-23] MEDS: predniSONE 20 MG TABLET 60 MG PO (07:27)
[2021-07-23 07:37] LABS: Basophils Absolute Auto 0.1 K/mm3 (0.0-0.1); Basophils Percent Auto 0.5 % (0.2-1.2); Eosinophils Percent Auto 5.4 % (0-4.4); Hematocrit 39.9 % (37.0-47.0); Hemoglobin 12.9 g/dL (12.0-15.0); Immature Granulocyte Absolute 0.03 K/mm3 (0.00-0.031); Immature Granulocyte Percent A 0.2 % (0-0.5); Lymphocytes Percent Auto 77.4 % (18.3-44.2); Mean Corpuscular HGB Conc 32.3 g/dl (32-36); Mean Corpuscular Hemoglobin 29.7 pg (26-34); Mean Corpuscular Volume 91.9 fl (80-100); Mean Platelet Volume 8.3 fl (7.4-10.4); Monocytes Absolute Auto 0.4 K/mm3 (0.1-0.6); Monocytes Percent Auto 2.2 % (2.6-8.5); Neutrophils Absolute Auto 2.5 K/mm3 (1.3-6.7); Neutrophils Percent Auto 14.3 % (45.5-73.1); Platelet Count Result 335 k/mm3 (150-375); Red Blood Count 4.34 M/mm3 (4.2-5.4); Red Cell Distribution Width 12.8 % (11.5-14.5); White Blood Count 17.7 K/mm3 (4.5-10.0)
[2021-07-23 07:38] VITALS: PULSE 86; RESP 26
[2021-07-23] MEDS: IPRATROPIUM BR 0.02% INH SOLN 0.5 MG/2.5 ML VIAL INHALATION (07:40)
[2021-07-23] MEDS: ALBUTEROL SULFATE NEB 2.5 MG/0.5 ML INH 5 MG INHALATION (07:40)
[2021-07-23 08:00] LABS: Alveolar/Arterial O2 Gradient 25.3 mmHg; Base Excess ABG 0.8 mEq/l (+/-2.0); Fractional Inspired Oxygen 36 %; HCO3 ABG 24.8 mEq/l (22.0-26.0); Oxygen Content ABG 17.6 %vol (16.0-22.0); Oxygen Saturation ABG 99.3 % (95.0-100.0); Oxyhemoglobin 98.1 % THb (90.0-100.0); PCO2 ABG 37.4 mmHg (35.0-45.0); PO2 FiO2 Ratio Arterial Blood 5.22 %; Total Hemoglobin 12.5 g/dL (12.0-18.0); pH ABG 7.439 (7.350-7.450)
[2021-07-23 08:01] LABS: Device NASAL CANNULA; Modified Allen's Test Pass; Site Drawn LEFT RADIAL
[2021-07-23 08:02] LABS: Alanine Aminotransferase 23 U/L (4-35); Albumin Level 4.3 g/dL (3.5-5.1); Alkaline Phosphatase 76 U/L (38-126); Aspartate Amino Transferase 34 U/L (14-36); Bilirubin,Total 0.3 mg/dL (0.2-1.3)
[2021-07-23 08:52] VITALS: BP 137/72; PULSE 84; RESP 18; O2SAT 100
== END 2021-07-23 08:54 | disposition home or self-care (01) ==
PROVIDERS: Emergency Medicine; Emergency Provider Emergency Medicine; PCP Nurse Practitioner Family
DX: J44.1 Chronic obstructive pulmonary disease with (acute) exacerbation (principal); Z86.16 Personal history of COVID-19; K21.9 Gastro-esophageal reflux disease without esophagitis; M19.90 Unspecified osteoarthritis, unspecified site; F17.290 Nicotine dependence, other tobacco product, uncomplicated
CPT/HCPCS: 36415; 36600; 71046; 80048; 80076; 82805; 85025; 93005; 94640; 99284; J7512

== ENCOUNTER 2021-10-25 09:38 | Outpatient (CLI) | payer OTHER, SELFPAY ==
--- NOTE | ~2021-10-25 | CT_ITS ---
EXAMINATION: CT lung screening EXAM DATE: 10/25/2021 09:52 INDICATION: History of tobacco use. TECHNIQUE: Spiral low dose CT of the chest without contrast. Axial, coronal and sagittal images were reviewed. The dose-length product (DLP) for this examination was 59.41 mGy-cm. The exposure was ta ilored according to patient size (auto mA exposure control), and iterative reconstruction (ASIR) was used as additional dose reduction technique. Correlation is made to PET CT from 04/12/2021, and outside chest CT from 08/07/2020. FINDINGS: There is bilobulated nodule, or 2 nearly contiguous nodules measuring 3 x 9 mm, with avera ge axial dimension for both together of 6 mm. This was likely present on PET/CT last year, but does n ot appear present on an outside chest CT from 2019. Favor postinfectious etiology but category 3, six -month follow-up recommended. There is moderate emphysema and hyperinflation. Tracheobronchial tree i s patent. There is 12 x 10 mm precarinal lymph node, mildly enlarged. There are no pleural or rocky cardial effusions. There is no pneumothorax. Heart normal in size. There is mild coronary arter ial calcification, arterial sclerosis. Upper abdomen is unremarkable. No osteoblastic or osteolyti c lesions identified. IMPRESSION: Lung-RADS category 3, probably benign (1-2% chance of malignancy); recommend followup non contrast chest CT or LDCT in 6 months. Reviewed, dictated and finalized at location . 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
== END 2021-10-25 09:39 | disposition home or self-care (01) ==
LOC: ANHIMG 09:43
PROVIDERS: PCP Nurse Practitioner Family; Visit Provider Student in an Organized Health Care Education/Training Program
DX: Z12.2 Encounter for screening for malignant neoplasm of respiratory organs (principal); F17.218 Nicotine dependence, cigarettes, with other nicotine-induced disorders; R91.8 Other nonspecific abnormal finding of lung field
CPT/HCPCS: 71271

== ENCOUNTER 2021-11-14 12:40 | Outpatient (CLI) | payer OTHER, SELFPAY ==
--- NOTE | 2021-11-15 11:05 | P.PCNPFT_ITS ---
PFT Procedure Performed PFT Procedure Performed Spirometry with Pre/Post Bronchodilator Plethysmography (Lung Vol) Diffusing Cap (DLCO) Flow Vol Loop PFT Interpretation Lung volumes were measured with the body plethysmography method. The elevated FRC and RV are indicative of a air trapping. Spirometry showed diminished e xpiratory flow rates and a diminished FEV1 to FVC ratio 56%, indicative of obstructive airway disease. Following administration of a bronchodilator there was no significant change in the expiratory flow rates. Lung diffusion capacity is moderately reduced at 55% predicted. The flow volume loop is consistent with obstructive airway disease. In comparison to previous study in 2018, the post bronchodilator FVC is now lower by approximately 0.2 L whereas the FEV1 is essentially unchanged. Lung diffusion capacity is similarly lower by approximately 20% from previous % predicted measurement. Impression: Moderate obstructive airway disease with evidence of air trapping and no response to bronchodilators on this testing. Moderately reduced lung diffusion capacity.
== END 2021-11-14 12:41 | disposition home or self-care (01) ==
LOC: ANHPFT 12:42
PROVIDERS: PCP Nurse Practitioner Family; Visit Provider Student in an Organized Health Care Education/Training Program
DX: J44.9 Chronic obstructive pulmonary disease, unspecified (principal); F17.200 Nicotine dependence, unspecified, uncomplicated
CPT/HCPCS: 94060; 94726; 94729

== ENCOUNTER 2021-12-25 08:47 | Outpatient (CLI) | payer OTHER, SELFPAY ==
[2021-12-25 09:07] LABS: Basophils Absolute Auto 0.1 K/mm3 (0.0-0.1); Basophils Percent Auto 0.5 % (0.2-1.2); Eosinophils Absolute Auto 0.2 K/mm3 (0-0.3); Eosinophils Percent Auto 1.6 % (0-4.4); Hematocrit 38.8 % (37.0-47.0); Hemoglobin 11.9 g/dL (12.0-15.0); Immature Granulocyte Absolute 0.01 K/mm3 (0.00-0.031); Immature Granulocyte Percent A 0.1 % (0-0.5); Lymphocytes Absolute Auto 8.41 K/mm3 (0.9-3.2); Lymphocytes Percent Auto 71.1 % (18.3-44.2); Mean Corpuscular HGB Conc 30.7 g/dl (32-36); Mean Corpuscular Hemoglobin 28.5 pg (26-34); Mean Platelet Volume 8.2 fl (7.4-10.4); Monocytes Absolute Auto 0.3 K/mm3 (0.1-0.6); Monocytes Percent Auto 2.6 % (2.6-8.5); Neutrophils Absolute Auto 2.9 K/mm3 (1.3-6.7); Neutrophils Percent Auto 24.1 % (45.5-73.1); Platelet Count Result 363 k/mm3 (150-375); Red Blood Count 4.17 M/mm3 (4.2-5.4); Red Cell Distribution Width 12.5 % (11.5-14.5); White Blood Count 11.8 K/mm3 (4.5-10.0)
[2021-12-25 09:32] LABS: Alanine Aminotransferase 23 U/L (4-35); Albumin Level 4.2 g/dL (3.5-5.1); Alkaline Phosphatase 80 U/L (38-126); Anion Gap 1 mmol/L (8-16); Aspartate Amino Transferase 110 U/L (14-36); Bilirubin,Total 0.2 mg/dL (0.2-1.3); Blood Urea Nitrogen 13 mg/dL (7-17); Carbon Dioxide 32 mmol/L (22-30); Chloride 103 mmol/L (98-107); Estimated Glomerular Filt Rate > 60; Glucose 87 mg/dL (65-110); Lactate Dehydrogenase 450 U/L (313-618); Potassium 4.4 mmol/L (3.4-5.0); Sodium 136 mmol/L (137-145)
== END 2021-12-25 08:48 | disposition home or self-care (01) ==
LOC: ANHLAB 08:49
PROVIDERS: PCP Nurse Practitioner Family; Visit Provider Internal Medicine Hematology & Oncology
DX: C91.10 Chronic lymphocytic leukemia of B-cell type not having achieved remission (principal)
CPT/HCPCS: 36415; 80053; 83615; 85025

== ENCOUNTER 2022-01-04 16:11 | Emergency (ER) | payer OTHER, SELFPAY ==
[2022-01-04 16:22] VITALS: BP 145/106; PULSE 92; RESP 16; TEMP 37.4; O2SAT 99
--- NOTE | 2022-01-04 16:43 | ED.URI ---
HPI - URI/Sore Throat General Chief Complaint: Upper Respiratory Infection Stated Complaint: FEVER/HEADACHE/BACK PAIN Time Seen by Provider: 01/04/22 16:44 Source: patient and RN notes reviewed Mode of arrival: ambulatory Limitations: no limitations History of Present Illness HPI Narrative: 66 y/o female presented for c/o bilateral flank pain, headache and fever 100.9 at home. Onset today. Endorses nausea, difficulty sleeping due to the pain. Rates pain 20/10. Has taken ibuprofen and diclofenac today. Endorses completing abx 2 weeks ago for uti. Related Data Home Medications Medication Instructions Recorded Confirmed ibuprofen 800 mg PO Q6H PRN 09/30/20 08/13/21 Allergies Allergy/AdvReac Type Severity Reaction Status Date / Time Sulfa (Sulfonamide Allergy Intermediate rash / Verified 08/13/21 11:29 Antibiotics) hives Penicillins Allergy Mild rash Verified 08/13/21 11:29 Review of Systems Review of Systems: CONSTITUTIONAL: Denies malaise, chills, sweats, fever EYES: Denies visual changes, redness, or discharge ENT: Reports rhinorrhea, congestion, sinus pain CARDIOVASCULAR: Denies chest pain, palpitations, edema RESPIRATORY: Denies dyspnea GASTROINTESTINAL: Denies abdominal pain, nausea, vomiting, diarrhea Endorses CVA tenderness SKIN: Denies rash or itching MUSCULOSKELETAL: denies myalgia NEUROLOGIC: endorses headache PMFSH Past Medical History Medical History (Updated 01/04/22 @ 17:17 by Carmen Mares, MELVIN) Abnormal CT scan, lung Arthritis Cellulitis of hand Chronic obstructive pulmonary disease Community acquired pneumonia COVID-19 (~04/2020) Elevated liver enzymes Elevated WBC count Emphysema of lung Gastroesophageal reflux disease Hyponatremia LUQ pain Mild episode of recurrent major depressive disorder Persistent dry cough Right rotator cuff tear Scheduled for surgery sometime in early 2020. Sepsis Tobacco use disorder, continuous Patient quit smoking in 2019 and has been vaping since that time. Surgical History Surgical History (Updated 08/13/21 @ 11:38 by Katja Villalobos MA) History of arthroscopic knee surgery History of hysterectomy History of local excision of skin lesion Benign papilloma of the left upper lip. S/P tooth extraction Status post excision of lipoma Mid upper back. Family History Family History Father Family history of suicide, Onset Age: 53 Mother Family history of congestive heart failure, Onset Age: 76 Family history of chronic obstructive pulmonary disease Daughter Seizure Social History Social History Social History: The patient lives alone in [place] with her dog. She smoked a pack of cigarettes a day for 50 years and quit in 2019. Now vapes. No significant alcohol use. No illicit substance use. Her son George and daughter Katja are her surrogate decision makers and she wishes to be a full code. Smoking packs per day: 1 Smoking cigarettes per day: 20.0 Years smoked: 50 Smoking pack-years: 50.00 Smoking status: Former smoker Tobacco type: cigarettes and e-cigarettes/vaping Second hand tobacco smoke exposure: No Additional smoking assessment comments: former cig smoker, vapes currently Alcohol intake: never Substance use: former Substance use type: does not use Gender identity (if verbalized by the patient): Female Spiritual care concerns: No Exam Narrative: GENERAL: Ill-appearing, nontoxic HEAD: Normocephalic EYES: conjunctivae clear ENT: Mucous membranes moist. TM pearly wallace with dull light reflex bilaterally; no tragal tenderness. Oropharynx erythematous without lesions or exudate NECK: Supple. No lymphadenopathy CHEST: Clear to auscultation, breath sounds equal. No wheezing, rhonchi, rales, or stridor. No respiratory distress, speaks in full sentences. HEART: Regula
== END 2022-01-04 17:24 | disposition home or self-care (01) ==
PROVIDERS: Emergency Provider Nurse Practitioner Family; PCP Nurse Practitioner Family
DX: R10.9 Unspecified abdominal pain (principal); J06.9 Acute upper respiratory infection, unspecified; F17.290 Nicotine dependence, other tobacco product, uncomplicated; M19.90 Unspecified osteoarthritis, unspecified site; J44.9 Chronic obstructive pulmonary disease, unspecified; Z86.16 Personal history of COVID-19; K21.9 Gastro-esophageal reflux disease without esophagitis
CPT/HCPCS: 81003; 87086; 99213; G0463

== ENCOUNTER 2022-06-13 11:11 | Outpatient (CLI) | payer OTHER, SELFPAY ==
[2022-06-13 11:28] LABS: Basophils Absolute Auto 0.1 K/mm3 (0.0-0.1); Basophils Percent Auto 0.3 % (0.2-1.2); Eosinophils Absolute Auto 0.1 K/mm3 (0-0.3); Eosinophils Percent Auto 0.4 % (0-4.4); Hematocrit 38.8 % (37.0-47.0); Hemoglobin 12.1 g/dL (12.0-15.0); Immature Granulocyte Absolute 0.03 K/mm3 (0.00-0.031); Immature Granulocyte Percent A 0.1 % (0-0.5); Lymphocytes Absolute Auto 17.25 K/mm3 (0.9-3.2); Mean Corpuscular HGB Conc 31.2 g/dl (32-36); Mean Corpuscular Hemoglobin 29.2 pg (26-34); Mean Corpuscular Volume 93.5 fl (80-100); Mean Platelet Volume 8.1 fl (7.4-10.4); Monocytes Absolute Auto 0.3 K/mm3 (0.1-0.6); Monocytes Percent Auto 1.6 % (2.6-8.5); Neutrophils Percent Auto 14.6 % (45.5-73.1); Platelet Count Result 320 k/mm3 (150-375); Red Blood Count 4.15 M/mm3 (4.2-5.4); Red Cell Distribution Width 12.5 % (11.5-14.5); White Blood Count 20.8 K/mm3 (4.5-10.0)
[2022-06-13 15:00] LABS: Alanine Aminotransferase 28 U/L (6-35); Albumin Level 4.4 g/dL (3.5-5.1); Alkaline Phosphatase 67 U/L (38-126); Anion Gap 8 mmol/L (8-16); Aspartate Amino Transferase 34 U/L (14-36); Bilirubin,Total 0.4 mg/dL (0.2-1.3); Blood Urea Nitrogen 10 mg/dL (7-17); Calcium 9.5 mg/dL (8.4-10.2); Carbon Dioxide 26 mmol/L (22-30); Chloride 101 mmol/L (98-107); Estimated Glomerular Filt Rate > 60; Glucose 91 mg/dL (65-110); Lactate Dehydrogenase 234 U/L (120-246); Potassium 4.2 mmol/L (3.4-5.0); Sodium 135 mmol/L (137-145)
== END 2022-06-13 11:12 | disposition home or self-care (01) ==
LOC: ANHLAB 11:12
PROVIDERS: PCP Family Medicine; Visit Provider Internal Medicine Hematology & Oncology
DX: C91.10 Chronic lymphocytic leukemia of B-cell type not having achieved remission (principal)
CPT/HCPCS: 36415; 80053; 83615; 85025

== ENCOUNTER 2022-06-26 08:04 | Outpatient (CLI) | payer OTHER, SELFPAY ==
--- NOTE | ~2022-06-26 | CT_ITS ---
EXAMINATION: CT lung screening DATE: 06/26/2022 08:26 INDICATION: HX OF NICOTINE DEPENDENCE TECHNIQUE: Computed tomography (CT) of the chest was performed without intravenous contrast. Addition al 3D reconstructions utilizing coronal maximum intensity projection (MIP) were performed. Automated exposure control and iterative reconstruction technique were employed. The dose-length product was 63 .56 mGy-cm. COMPARISON: 10/25/2021 FINDINGS: Moderate emphysema. There are few scattered bilateral calcified and noncalcified pulmonary nodules, t he largest noncalcified nodules measuring 3 to 4 mm in the bilateral lower lobes. 2 of these nodules which are in close proximity in the right lower lobe have decreased in size since the prior study at which time they appear to contact the clinic with a bilobed appearance. The Discoid atelectasis in th e left lower lobe and in the lingula along the major fissure. No pneumonia, pulmonary edema or pleura l effusion. Heart size is normal. No pericardial or pleural effusion. Atherosclerotic calcification i s along the normal caliber thoracic aorta. No pathologically enlarged thoracic lymphadenopathy. 1.5 c m left renal cyst. Developmental anterior and posterior fusion at T2-T3. Mild thoracic spondylosis. IMPRESSION: 1. Lung-RADS category 2: Benign appearance or behavior. Continue annual screening with noncontrast lo w-dose chest CT in 12 months. Reviewed, dictated and finalized at location A. IMPRESSION: 1. Lung-RADS category 2: Benign appearance or behavior. Continue annual screeni ng with noncontrast low-dose chest CT in 12 months.
== END 2022-06-26 08:05 | disposition home or self-care (01) ==
PROVIDERS: PCP Family Medicine; Visit Provider Student in an Organized Health Care Education/Training Program
DX: Z12.2 Encounter for screening for malignant neoplasm of respiratory organs (principal); F17.218 Nicotine dependence, cigarettes, with other nicotine-induced disorders
CPT/HCPCS: 71271

== ENCOUNTER 2022-08-20 14:21 | Outpatient (CLI) | payer OTHER, SELFPAY ==
--- NOTE | ~2022-08-20 | MM_ITS ---
EXAMINATION: MM screening peyman BI w laquita HISTORY: Screening TECHNIQUE: Craniocaudal and mediolateral oblique 3-D tomosynthesis images were obtained and synthetic 2-D images were generated. CAD analysis was submitted and interpreted. COMPARISON: 10/03/2017 BREAST PARENCHYMAL COMPOSITION: There are scattered areas of fibroglandular density. FINDINGS: There is no evidence of suspicious mass, calcification, or architectural distortion to sugg est malignancy in either breast. There has been no suspicious interval change. IMPRESSION: 1. No mammographic evidence of malignancy. 2. Recommend routine screening mammography in one year. BI-RADS Category 1: Negative Reviewed, dictated and finalized at location B. ELLA TIPPER MACHINE
--- NOTE | ~2022-08-20 | DEXA_ITS ---
Bone Density Report Name: NICKIE PALOMARES Age: 67 Sex: Female Ethnicity: White Date of : 1955 Indication: postmenopausal; screening for osteoporosis; prior fracture; cancer; asthma or emphysema; hysterectomy; Referring Provider: CHARMAINE CHAN Study: Bone densitometry was performed. Exam Date: August 20, 2022 Accession number: [id number] Bone Density: Region BMD T-score Z-score Classification AP Spine(L1-L4) 0.824 -2.0 0.0 Osteopenia Femoral Neck (Left) 0.644 -1.8 -0.1 Osteopenia Total Hip (Left) 0.726 -1.8 -0.3 Osteopenia Femoral Neck (Right) 0.543 -2.8 -1.0 Osteoporosis Total Hip (Right) 0.673 -2.2 -0.8 Osteopenia Total Hip Mean 0.699 -2.0 -0.6 Osteopenia World Health Organization criteria for BMD impression classify patients as: Normal (T-score at or above -1.0), Osteopenia (T-score between -1.0 and -2.5), or Osteoporosis (T-score at or below -2.5). 10-year Fracture Risk: FRAX not reported because: Some T-score for Spine Total or Hip Total or Femoral Neck at or below -2.5 Clinical Information Provided by Patient: Has had a low trauma fracture Smokes Has used the following medications: Vitamin D Has the following medical conditions: Asthma or Emphysema, Cancer, Hysterectomy Patient maximum height was 61 Menopause Age: 33 No regular weight bearing exercise Does not regularly consume dairy products Drinks caffeinated beverages Onset of menses at age 10 Number of children 3 Impression: The patient has established osteoporosis, based on the Right Femoral Neck T-score and the existence of a prior fracture. The patient has risk factors, including: smoking, previous fracture. Discussion: HIGH RISK OF FRACTURE. BONE DENSITY IS UNDESIRABLY LOW AT ONE OR MORE SKELETAL SITES, CONSISTENT WITH POSTMENOPAUSAL OSTEOPOROSIS. This patient's lowest T-score, in a patient who has previously fractured, meets the World Health Organization's (WHO) criteria for severe osteoporosis. In untreated patients, the risk of osteoporotic fracture increases approximately two-fold for each 1.0 SD decrease in T-score. Low bone density is not the only risk factor for fracture; also consider factors such as patient's age, frailty or poor health, risk of falling, risk of injury, previous osteoporotic fracture, family history of osteoporosis, cigarette smoking, low body weight, etc. Not everyone with low bone mineral density has osteoporosis; osteomalacia and other metabolic bone disorders should also be considered. Patients who have osteoporosis should be evaluated for specific diseases and conditions (secondary causes) that may cause or contribute to bone loss. The [place] [employer]ocrin[employer] (AACE) and National Osteoporosis Foundation (NOF) recommend pharmacologic intervention for all postmenopaus
== END 2022-08-20 14:22 | disposition home or self-care (01) ==
PROVIDERS: PCP Family Medicine; Visit Provider Nurse Practitioner Family
DX: Z12.31 Encounter for screening mammogram for malignant neoplasm of breast (principal); Z78.0 Asymptomatic menopausal state; M85.89 Other specified disorders of bone density and structure, multiple sites; M81.6 Localized osteoporosis [Lequesne]
CPT/HCPCS: 77063; 77067; 77080

== ENCOUNTER 2022-11-01 15:23 | Emergency (ER) | payer OTHER, SELFPAY ==
--- NOTE | ~2022-11-01 | XR_ITS ---
EXAMINATION: XR chest 1V portable DATE: 11/01/2022 16:45 INDICATION: Shortness of breath. COVID-19 positive. TECHNIQUE: A single frontal view of the chest was obtained. COMPARISON: Chest 2 views 07/23/2021 FINDINGS: There is no pneumonia, pleural effusion, or pneumothorax. The heart size is normal. There a re multiple old healed right rib fractures. There are suture anchors in right humeral head. A radiopa que marker overlies proximal right humerus. IMPRESSION: 1. No acute cardiopulmonary disease. Reviewed, dictated and finalized at location A. 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
--- NOTE | 2022-11-01 15:39 | ECG_ITS ---
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
[2022-11-01 15:40] VITALS: BP 176/97; PULSE 93; RESP 24; TEMP 36.7; O2SAT 96
[2022-11-01 15:53] LABS: Basophils Percent Auto 0.2 % (0.2-1.2); Eosinophils Absolute Auto 0.2 K/mm3 (0-0.3); Hematocrit 36.9 % (37.0-47.0); Immature Granulocyte Absolute 0.04 K/mm3 (0.00-0.031); Immature Granulocyte Percent A 0.2 % (0-0.5); Lymphocytes Absolute Auto 15.82 K/mm3 (0.9-3.2); Lymphocytes Percent Auto 76.6 % (18.3-44.2); Mean Corpuscular HGB Conc 32.5 g/dl (32-36); Mean Corpuscular Volume 89.1 fl (80-100); Mean Platelet Volume 7.8 fl (7.4-10.4); Monocytes Absolute Auto 0.3 K/mm3 (0.1-0.6); Monocytes Percent Auto 1.4 % (2.6-8.5); Neutrophils Absolute Auto 4.3 K/mm3 (1.3-6.7); Neutrophils Percent Auto 20.6 % (45.5-73.1); Platelet Count Result 363 k/mm3 (150-375); Red Blood Count 4.14 M/mm3 (4.2-5.4); Red Cell Distribution Width 12.6 % (11.5-14.5); White Blood Count 20.7 K/mm3 (4.5-10.0)
[2022-11-01 16:05] LABS: Alanine Aminotransferase 28 U/L (6-35); Albumin Level 4.5 g/dL (3.5-5.1); Alkaline Phosphatase 74 U/L (38-126); Anion Gap 5 mmol/L (8-16); Aspartate Amino Transferase 33 U/L (14-36); Bilirubin,Total 0.4 mg/dL (0.2-1.3); Blood Urea Nitrogen 7 mg/dL (7-17); Calcium 9.4 mg/dL (8.4-10.2); Carbon Dioxide 30 mmol/L (22-30); Chloride 98 mmol/L (98-107); Estimated CRCL calculation 55 ml/min; Estimated Glomerular Filt Rate > 60; Glucose 121 mg/dL (65-110); Potassium 4.1 mmol/L (3.4-5.0); Sodium 133 mmol/L (137-145)
[2022-11-01 16:53] VITALS: BP 195/82; O2SAT 100
[2022-11-01 17:01] VITALS: BP 183/76
[2022-11-01 17:16] VITALS: BP 187/78
[2022-11-01] MEDS: amLODIPine BESYLATE 5 MG TABLET PO (18:26)
--- NOTE | 2022-11-01 20:32 | ED.GENADULT ---
HPI - General Adult General Chief complaint: Dizziness Stated complaint: dizzy, alexid + 2/ Time Seen by Provider: 11/01/22 17:57 Source: patient Mode of arrival: ambulatory Limitations: no limitations History of Present Illness HPI narrative: 67-year-old with a history of hypertension, CLL, COPD here with complaints of elevated blood pressure for past few days. Patient states that she was on lisinopril however her doctor changed her to losartan and ever since then she has been having high blood pressure. She also states that she occasionally feels dizzy. She was diagnosed with COVID and finished a course of Paxlovid she presently has no chest pain, shortness of breath. Onset (ago): day(s) (2) Exacerbating factors: none Associated symptoms: denies other symptoms Related Data Home Medications Medication Instructions Recorded Confirmed ibuprofen 200 mg tablet 800 mg PO Q6H PRN Pain 09/30/20 08/13/22 Allergies Allergy/AdvReac Type Severity Reaction Status Date / Time Sulfa (Sulfonamide Allergy Intermediate rash / Verified 08/13/22 14:29 Antibiotics) hives Penicillins Allergy Mild rash Verified 08/13/22 14:29 Review of Systems Review of Systems: All systems reviewed & are unremarkable except as noted in HPI and below Constitutional: Constitutional: Reports no additional constitutional complaints Eyes: Eyes: Reports no additional eye complaints ENT: Reports system reviewed and no additional complaints, except as documented Cardiovascular: Cardiovascular: Reports no additional cardiovascular complaints Respiratory: Respiratory: Reports no additional respiratory complaints Gastrointestinal: Gastrointestinal: Reports no additional gastrointestinal complaints Genitourinary: Genitourinary: Reports no additional female genitourinary complaints Musculoskeletal: Musculoskeletal: Reports no additional musculoskeletal complaints Neurologic: Reports system reviewed and no additional complaints, except as documented [facility] Past Medical History Medical History Abnormal CT scan, lung Arthritis Cellulitis of hand CLL (chronic lymphocytic leukemia) Community acquired pneumonia COVID-19 (~04/2020) Elevated liver enzymes Elevated WBC count Emphysema of lung Essential hypertension Gastroesophageal reflux disease Hyponatremia LUQ pain Mild episode of recurrent major depressive disorder Osteoporosis Persistent dry cough Right rotator cuff tear Scheduled for surgery sometime in early 2020. Sepsis Tobacco use disorder, continuous Patient quit smoking in 2019 and has been vaping since that time. Surgical History Surgical History History of arthroscopic knee surgery History of hysterectomy History of local excision of skin lesion Benign papilloma of the left upper lip. S/P tooth extraction Status post excision of lipoma Mid upper back. Family History Family History Father Family history of suicide, Onset Age: 53 Mother Family history of congestive heart failure, Onset Age: 76 Family history of chronic obstructive pulmonary disease Daughter Seizure Social History Social History Social History: The patient lives alone in [place] with her dog. She smoked a pack of cigarettes a day for 50 years and quit in 2019. Now vapes. No significant alcohol use. No illicit substance use. Her son George and daughter Katja are her surrogate decision makers and she wishes to be a full code. Smoking packs per day: 1 Smoking cigarettes per day: 20.0 Years smoked: 50 Smoking pack-years: 50.00 Smoking status: Former smoker Tobacco type: cigarettes and e-cigarettes/vaping Second hand tobacco smoke exposure: No Additional smoking assessment comments: former cig smoker, vapes
== END 2022-11-01 20:44 | disposition home or self-care (01) ==
PROVIDERS: Emergency Medicine; Emergency Provider Family Medicine; PCP Family Medicine
DX: I10 Essential (primary) hypertension (principal); J43.9 Emphysema, unspecified; K21.9 Gastro-esophageal reflux disease without esophagitis; M81.0 Age-related osteoporosis without current pathological fracture; M19.90 Unspecified osteoarthritis, unspecified site; F17.290 Nicotine dependence, other tobacco product, uncomplicated; Z85.6 Personal history of leukemia; Z86.16 Personal history of COVID-19; Z87.01 Personal history of pneumonia (recurrent); Z90.710 Acquired absence of both cervix and uterus
CPT/HCPCS: 36415; 71045; 80053; 85025; 93005; 99283; A9270

== ENCOUNTER 2022-11-13 07:51 | Outpatient (CLI) | payer OTHER, SELFPAY | END 2022-11-13 07:52 | disposition home or self-care (01) | LOC: ANHAUDASC 07:52 | PROVIDERS: PCP Family Medicine; Visit Provider Nurse Practitioner Family | DX: H90.3 Sensorineural hearing loss, bilateral (principal) | CPT/HCPCS: 92557; 92567 ==

== ENCOUNTER 2022-12-11 09:22 | Outpatient (CLI) | payer OTHER, SELFPAY ==
[2022-12-11 09:36] LABS: Basophils Absolute Auto 0.1 K/mm3 (0.0-0.1); Basophils Percent Auto 0.3 % (0.2-1.2); Eosinophils Absolute Auto 0.1 K/mm3 (0-0.3); Eosinophils Percent Auto 0.3 % (0-4.4); Hematocrit 37.8 % (37.0-47.0); Hemoglobin 12.1 g/dL (12.0-15.0); Immature Granulocyte Absolute 0.03 K/mm3 (0.00-0.031); Immature Granulocyte Percent A 0.1 % (0-0.5); Lymphocytes Absolute Auto 20.98 K/mm3 (0.9-3.2); Lymphocytes Percent Auto 86.2 % (18.3-44.2); Mean Corpuscular Hemoglobin 29.5 pg (26-34); Mean Corpuscular Volume 92.2 fl (80-100); Mean Platelet Volume 7.8 fl (7.4-10.4); Monocytes Absolute Auto 0.4 K/mm3 (0.1-0.6); Monocytes Percent Auto 1.6 % (2.6-8.5); Neutrophils Absolute Auto 2.8 K/mm3 (1.3-6.7); Neutrophils Percent Auto 11.5 % (45.5-73.1); Platelet Count Result 363 k/mm3 (150-375); Red Cell Distribution Width 13.2 % (11.5-14.5); White Blood Count 24.4 K/mm3 (4.5-10.0)
[2022-12-11 09:44] LABS: Atypical Lymphocytes Present; Platelet Estimate Adequate (Adequate); Schistocytes None Seen (NORMAL)
[2022-12-11 12:07] LABS: Alanine Aminotransferase 29 U/L (6-35); Albumin Level 4.3 g/dL (3.5-5.1); Alkaline Phosphatase 58 U/L (38-126); Anion Gap 2 mmol/L (8-16); Aspartate Amino Transferase 32 U/L (14-36); Bilirubin,Total 0.5 mg/dL (0.2-1.3); Blood Urea Nitrogen 12 mg/dL (7-17); Calcium 9.3 mg/dL (8.4-10.2); Carbon Dioxide 33 mmol/L (22-30); Chloride 100 mmol/L (98-107); Estimated Glomerular Filt Rate > 60; Glucose 85 mg/dL (65-110); Lactate Dehydrogenase 211 U/L (120-246); Potassium 4.6 mmol/L (3.4-5.0); Sodium 135 mmol/L (137-145)
== END 2022-12-11 09:23 | disposition home or self-care (01) ==
LOC: ANHLAB 09:24
PROVIDERS: PCP Family Medicine; Visit Provider Internal Medicine Hematology & Oncology
DX: C91.10 Chronic lymphocytic leukemia of B-cell type not having achieved remission (principal)
CPT/HCPCS: 36415; 80053; 83615; 85025

== ENCOUNTER 2022-12-19 11:03 | Outpatient (CLI) | payer OTHER, SELFPAY ==
[2022-12-19 11:59] LABS: Immunoglobulin A 93 mg/dL (70-400); Immunoglobulin G 642 mg/dL (700-1600); Immunoglobulin M 80 mg/dL (40-230)
== END 2022-12-19 11:04 | disposition home or self-care (01) ==
LOC: ANHLAB 11:05
PROVIDERS: PCP Family Medicine; Visit Provider Internal Medicine Hematology & Oncology
DX: C91.10 Chronic lymphocytic leukemia of B-cell type not having achieved remission (principal)
CPT/HCPCS: 36415; 82784

== ENCOUNTER → 2022-12-23 12:04 | Outpatient (CLI) | payer OTHER, SELFPAY ==
--- NOTE | ~2022-12-23 | XR_ITS ---
XR chest 2V DATE: 12/23/2022 12:16 INDICATION: Cough TECHNIQUE: 2 views COMPARISON: November 01, 2022 portable AP chest June 26, 2022 CT lung screening FINDINGS: Normal heart size. Aortic calcification. No hilar or mediastinal enlargement. Bilateral hyperinflation and relative flattening the diaphragm, increased retrosternal airspace, sugg esting COPD. No pulmonary infiltrate or consolidation, pleural effusion or pulmonary vascular congestion or pneumo thorax is detected. Diffuse osteopenia. There are fixation devices in the proximal right humerus. Mild thoracic dextrosco liosis. IMPRESSION: Bilateral hyperinflation suggesting COPD No active cardiac pulmonary disease Aortic atherosclerosis Osteopenia Reviewed, dictated and finalized at location B.
== END ==
PROVIDERS: PCP Nurse Practitioner Family; Visit Provider Nurse Practitioner Family
DX: R05.9 Cough, unspecified (principal); R91.8 Other nonspecific abnormal finding of lung field; I70.0 Atherosclerosis of aorta; M85.88 Other specified disorders of bone density and structure, other site
CPT/HCPCS: 71046

== ENCOUNTER 2023-02-25 10:25 | Outpatient (CLI) | payer OTHER, SELFPAY ==
--- NOTE | ~2023-02-25 | XR_ITS ---
EXAMINATION: XR lg joint inject/asp w image DATE: 02/25/2023 11:28 INDICATION: Severe left glenohumeral osteoarthritis with left shoulder pain TECHNIQUE: A time-out was performed to verify the patient's name, date of , and procedure to b e performed. The procedure including the risks, benefits, and alternatives was discussed with the pat ient. Risks discussed included bleeding and infection. The patient understood the risks and agreed to proceed. The skin overlying the rotator cuff interval of the left glenohumeral joint joint was prep ped and draped in usual sterile fashion. Anesthetic was administered with 1% lidocaine subcutaneousl y. A 22 G needle was advanced under fluoroscopic guidance into the joint. Injection of 1 mL of Omni paque 240 confirmed intra-articular position of the needle. Subsequently, injectate consisting of 5 mL of a 4:1 mixture of 1% lidocaine: 80 mg/mL Depo-Medrol was instilled. Washout of contrast was seen confirming intra-articular administration. The needle was removed and the entry site was cleaned and dressed. There were no immediate complications. Fluoroscopy exposure time was 0.3 minutes. The tota l number of images was 2. Total DAP was 0.26 Gycm^2 FINDINGS: Real-time fluoroscopy demonstrates the needle in the left glenohumeral joint. Patient's paris n prior to procedure:4/10. Patient's pain following the procedure: 0/10. IMPRESSION: 1. Successful left glenohumeral joint injection of local anesthetic and steroid with decrease in the patient's presenting pain. Reviewed, dictated and finalized at location A.
== END 2023-02-25 10:26 | disposition home or self-care (01) ==
PROVIDERS: PCP Family Medicine; Visit Provider Orthopaedic Surgery
DX: M19.012 Primary osteoarthritis, left shoulder (principal)
CPT/HCPCS: 20610; 77002; J1040; Q9966

== ENCOUNTER → 2023-03-19 08:13 | Outpatient (CLI) | payer OTHER, SELFPAY ==
--- NOTE | ~2023-03-19 | XR_ITS ---
EXAMINATION:XR_CERV2-3V_CR DATE: 03/19/2023 08:37 INDICATION: Neck pain TECHNIQUE: AP, lateral, and odontoid views of the cervical spine are provided. COMPARISON: None FINDINGS: There is straightening of the cervical spine which can be positional or due to muscular spa sm. There are 2 mm of retrolisthesis of C4 on C5. The odontoid process is intact. No fracture is iden tified. The vertebral body heights are maintained. There is moderate loss of intervertebral disc spac e height at C4-5 and C5-6. Small degenerative osteophytes project from the anterior endplates of mult iple vertebral bodies. There is multilevel moderate to severe facet and uncovertebral joint osteoarth ritis. Prevertebral soft tissues are normal. IMPRESSION: 1. Moderate to severe cervical spondylosis without acute findings. Reviewed, dictated and finalized at location B.
== END ==
PROVIDERS: PCP Nurse Practitioner Family; Visit Provider Nurse Practitioner Family
DX: M47.892 Other spondylosis, cervical region (principal)
CPT/HCPCS: 72040

== ENCOUNTER 2023-05-06 07:06 | Day surgery (SDC) | payer OTHER, SELFPAY ==
[2023-04-28 14:28] VITALS: BMI 18.7
--- NOTE | ~2023-05-06 | XR_ITS ---
EXAMINATION: XR fluoroscopy no charge DATE: 05/06/2023 8:48 CDT INDICATION: BILATERAL C2-3,C3,C4 MEDIAL BRANCH BLOCK . TECHNIQUE: 9 fluoroscopic images of the cervical spine were obtained during bilateral C2-3, C3, and C 4 medial branch block performed by the surgeon. I was not present in the operating room. Fluoroscopy exposure time was 31.6 seconds. Air Kerma 3.58 mGy. COMPARISON: None FINDINGS: Bilateral needles approach the posterior elements of C2, C3, and C4 bulla by contrast injection. IMPRESSION: Fluoroscopic documentation of bilateral C2-3, C3, and C4 medial branch block. Please refer to the ope rative note for complete procedural details . Reviewed, dictated and finalized at location K. IMPRESSION: Fluoroscopic documentation of bilateral C2-3, C3, and C4 medial branch block. P lease refer to the operative note for complete procedural details .
[2023-05-06 07:52] VITALS: BP 154/76; PULSE 73; RESP 16; TEMP 36.5; O2SAT 100
--- NOTE | 2023-05-06 08:04 | WPDHPUPDATE1 ---
History and Physical Update Update Date/Time: 05/06/23 08:04 History and Physical has been reviewed, including an updated exam of the patient. There are NO changes in the patient's condition. Risks, benefits, and alternatives have been discussed and questions answered. Patient agrees to proceed with procedure.
[2023-05-06 08:13] VITALS: BP 142/75; PULSE 60; RESP 16; TEMP 36.4; O2SAT 100
[2023-05-06 08:53] VITALS: BP 158/68; PULSE 77; O2SAT 97
[2023-05-06 09:03] VITALS: BP 155/67; PULSE 75; O2SAT 98
[2023-05-06] MEDS: LIDOCAINE HCL 1% PF INJ 5 ML VIAL 3 ML XX (09:04)
[2023-05-06] MEDS: BUPivacaine HCL 0.5% 10 ML AMP INFILTRATE (09:06)
--- NOTE | 2023-05-06 09:16 | W.PM.PROC2 ---
Procedure Note - Detailed Date of Procedure 05/06/23 Pre-op Diagnosis Cervical Spondylosis, cervicalgia Post-op Diagnosis Same Procedure Performed Bilateral C2-3, C3, C4 medial branch blocks addressing the Bilateral C2-3, C3-4 facet joints under fluoroscopic guidance with contrast control (4 levels)(#1) Surgeon Jason Subramanian MD Anesthesia Local Indications Chronic cervicalgia, cervical spondylosis, cervicogenic headaches Description of Procedure INFORMED CONSENT: Risks, benefits and alternatives to the procedure were discussed in detail with the patient who expressed explicit understanding and consent to proceed. Patient was informed verbally and in written form regarding the risks associated with the procedure including the low risk of serious infection, bleeding/bruising, allergic reaction, nerve or organ injury, paralysis, procedural site pain or discomfort, worsening pain and/or mobility, failure to treat and/or disfigurement. The patient expressed explicit understanding and consent to proceed. All materials required for the procedure were available prior to procedure start. Site and side was marked prior to procedure and confirmed in the presence of the patient. PROCEDURE IN DETAIL: The patient was brought to the procedural suite and placed in the left lateral decubitus position with head stabilized. Patient was made comfortable with use of pillows under the head/chest and between the knees and ankles. Skin overlying the injection site on the affected side(s) was prepared broadly with ChloraPrep applicator and draped in a sterile manner. Aseptic technique was used throughout. The endplates of the vertebral bodies at the site(s) of interest were aligned in the Lateral view. Image was optimized for visualization of the pars interarticularis at each target site. Local anesthesia was established by infiltration with approximately 5 mL of 1% lidocaine via a 1-1/2 inch 27- gauge needle. A 25-gauge 3.5 inch Quincke spinal needle was advanced until the needle tip contacted the periosteum of the pars interarticularis at the target site, right C2-3 peripheral branch. AP view was utilized to confirm the appropriate placement of the needle tip just lateral to the periosteum at the center point of the pars interarticularis. In the Lateral view, 0.25 mL of Omnipaque 300 contrast medium was injected after negative aspiration for CSF, blood or other bodily fluid, showing appropriate extra-articular spread of contrast without evidence of intravascular, foraminal or intrathecal placement. A 0.5 mL solution of 0.5% PF bupivacaine was injected after negative repeat aspiration. Appropriate spread of the injectate was confirmed with washout of previously injected contrast. No parasthesias were elicited. Needle was removed completely intact without difficulty. The same procedure was repeated for all additional intended levels/structures treated on the ipsilateral side, right C3, C4 medial branches with identical methodology modified to compensate for different location, with similar results and no evidence of complication. Patient tolerated this well. The same procedure was repeated for all additional intended levels/structures treated on the contralateral side, left C2-3, C3, C4 medial branches with identical methodology modified to compensate for different location, with similar results and no evidence of complication. Patient tolerated this well. Images were saved and documented in the patient chart. Patient's skin was cleaned and sterile bandage applied. The patient tolerated the procedure well. The patient was transported to the recovery area in stable condition where they were observed for an appropriate amount of time prior to discharge, without evidence of complication. Patient was instructed on the appropriate completion of a pain diary over the next 12-24 hours. The patient was instructed to avoid excessive activity for the next 48 hours, including climbing and frequent u
[2023-05-06 09:18] VITALS: BP 104/78; PULSE 77; RESP 16; O2SAT 98
--- NOTE | 2023-05-06 09:34 | SUR.PHASEII ---
Pt states feeling off-balance and it feels like I'm moving but I don't think I am. Dr. Subramanian at bedside who states to pt that those symptoms are normal after this type of injection. This RN educated Pt on reportable signs and symptoms and to call Dr. Subramanian's office if symptoms get worse or is concerned about anything. No orders received from Dr. Subramanian and states Pt okay for discharge. Pt wheeled out of department in no apparent distress, VSS.
== END 2023-05-06 09:37 | disposition home or self-care (01) ==
PROVIDERS: PCP Nurse Practitioner Family; Visit Provider Anesthesiology Pain Medicine
PROC: (CPT 64490; principal; 2023-05-06 08:30)
DX: M47.812 Spondylosis without myelopathy or radiculopathy, cervical region (principal); M54.2 Cervicalgia
CPT/HCPCS: 64490; 64491; 99199

== ENCOUNTER 2023-06-03 09:00 | Day surgery (SDC) | payer OTHER, SELFPAY ==
[2023-05-26 09:07] VITALS: BMI 18.7
--- NOTE | ~2023-06-03 | XR_ITS ---
EXAMINATION: XR fluoroscopy no charge DATE: 06/03/2023 10:10 CDT INDICATION: BILAT C2-3,C3,C4 MEDIAL BRANCH BLOCK . TECHNIQUE: 9 fluoroscopic images of the cervical spine were obtained during bilateral C2-3, C3, and C 4 medial branch block. I was not present during the procedure. Fluoroscopy exposure time was 49.7 sec onds. Air Kerma 4.22 mGy. COMPARISON: 05/06/2023 FINDINGS: Multiple fluoroscopic images demonstrate needles approaching C2-3, C3, and C4 bilaterally followed by contrast injection. IMPRESSION: Fluoroscopic documentation of bilateral C2-3, C3, and C4 medial branch block. Please refer to the ope rative note for complete procedural details . Reviewed, dictated and finalized at location K. IMPRESSION: Fluoroscopic documentation of bilateral C2-3, C3, and C4 medial branch block. P lease refer to the operative note for complete procedural details .
--- NOTE | 2023-06-03 07:28 | WPDHPUPDATE1 ---
History and Physical Update Update Date/Time: 06/03/23 07:28 History and Physical has been reviewed, including an updated exam of the patient. There are NO changes in the patient's condition. Risks, benefits, and alternatives have been discussed and questions answered. Patient agrees to proceed with procedure.
[2023-06-03 09:23] VITALS: BP 134/71; PULSE 68; RESP 20; TEMP 36.8; O2SAT 100
[2023-06-03 10:12] VITALS: BP 168/72; PULSE 77; RESP 17; O2SAT 95
[2023-06-03 10:20] VITALS: BP 159/70; PULSE 78; RESP 14; O2SAT 99
[2023-06-03 10:35] VITALS: BP 182/85; PULSE 80; RESP 16; O2SAT 97
--- NOTE | 2023-06-03 10:37 | W.PM.PROC2 ---
Procedure Note - Detailed Date of Procedure 06/03/23 Pre-op Diagnosis Cervical Spondylosis, chronic cervicalgia Post-op Diagnosis Same Procedure Performed bilateral C2-3, C3, C4 diagnostic medial branch blocks temporarily denervating bilateral C2-3, C3-4 facet joints under fluoroscopic guidance contrast control. Surgeon Jason Subramanian MD Anesthesia Local Indications chronic, recalcitrant bilateral upper cervical /occipital pain secondary cervical spondylosis and facet syndrome Description of Procedure INFORMED CONSENT: Risks, benefits and alternatives to the procedure were discussed in detail with the patient who expressed explicit understanding and consent to proceed. Patient was informed verbally and in written form regarding the risks associated with the procedure including the low risk of serious infection, bleeding/bruising, allergic reaction, nerve or organ injury, paralysis, procedural site pain or discomfort, worsening pain and/or mobility, failure to treat and/or disfigurement. The patient expressed explicit understanding and consent to proceed. All materials required for the procedure were available prior to procedure start. Site and side was marked prior to procedure and confirmed in the presence of the patient. PROCEDURE IN DETAIL: The patient was brought to the procedural suite and placed in the left lateral decubitus position with head stabilized. Patient was made comfortable with use of pillows under the head/chest and between the knees and ankles. Skin overlying the injection site on the affected side(s) was prepared broadly with ChloraPrep applicator and draped in a sterile manner. Aseptic technique was used throughout. The endplates of the vertebral bodies at the site(s) of interest were aligned in the Lateral view. Image was optimized for visualization of the pars interarticularis at each target site. Local anesthesia was established by infiltration with approximately 5 mL of 1% lidocaine via a 1-1/2 inch 27- gauge needle. A 25-gauge 3.5 inch Quincke spinal needle was advanced until the needle tip contacted the periosteum of the pars interarticularis at the target site, right C2-3 peripheral branch. AP view was utilized to confirm the appropriate placement of the needle tip just lateral to the periosteum at the center point of the pars interarticularis. In the Lateral view, 0.25 mL of Omnipaque 300 contrast medium was injected after negative aspiration for CSF, blood or other bodily fluid, showing appropriate extra-articular spread of contrast without evidence of intravascular, foraminal or intrathecal placement. A 0.5 mL solution of 2.0% preservative-free lidocaine was injected after negative repeat aspiration. Appropriate spread of the injectate was confirmed with washout of previously injected contrast. No parasthesias were elicited. Needle was removed completely intact without difficulty. The same procedure was repeated for all additional intended levels/structures treated on the ipsilateral side, right C3, C4 medial branches with identical methodology modified to compensate for different location, with similar results and no evidence of complication. Patient tolerated this well. The same procedure was repeated for all additional intended levels/structures treated on the contralateral side, left C2-3, C3, C4 medial branches with identical methodology modified to compensate for different location, with similar results and no evidence of complication. Patient tolerated this well. Images were saved and documented in the patient chart. Patient's skin was cleaned and sterile bandage applied. The patient tolerated the procedure well. The patient was transported to the recovery area in stable condition where they were observed for an appropriate amount of time prior to discharge, without evidence of complication. Patient was instructed on the appropriate completion of a pain diary over the next 12-24 hours. The patient was instructed to av
[2023-06-03 10:44] VITALS: BP 148/92; PULSE 78; RESP 16; O2SAT 100
[2023-06-03] MEDS: LIDOCAINE HCL 1% PF INJ 5 ML VIAL 4 ML XX (11:51)
[2023-06-03] MEDS: LIDOCAINE HCL 2% PF INJ 5 ML VIAL 4 ML INFILTRATE (11:54)
== END 2023-06-03 10:55 | disposition home or self-care (01) ==
PROVIDERS: PCP Nurse Practitioner Family; Visit Provider Anesthesiology Pain Medicine
PROC: (CPT 64490; principal; 2023-06-03 10:00)
DX: M47.812 Spondylosis without myelopathy or radiculopathy, cervical region (principal); M54.2 Cervicalgia
CPT/HCPCS: 64490; 64491; 99199

== ENCOUNTER 2023-06-13 13:01 | Outpatient (CLI) | payer OTHER, SELFPAY ==
[2023-06-13 19:08] LABS: Hematocrit 38.8 % (37.0-47.0); Hemoglobin 12.4 g/dL (12.0-15.0); Mean Platelet Volume 8.5 fl (7.4-10.4); Platelet Count Result 325 k/mm3 (150-375); Red Cell Distribution Width 12.1 % (11.5-14.5); White Blood Count 24.1 K/mm3 (4.5-10.0)
[2023-06-13 19:17] LABS: Alanine Aminotransferase 23 U/L (6-35); Albumin Level 4.2 g/dL (3.5-5.1); Alkaline Phosphatase 56 U/L (38-126); Anion Gap 4 mmol/L (8-16); Aspartate Amino Transferase 57 U/L (14-36); Bilirubin,Total 0.4 mg/dL (0.2-1.3); Blood Urea Nitrogen 11 mg/dL (7-17); Calcium 9.8 mg/dL (8.4-10.2); Carbon Dioxide 32 mmol/L (22-30); Chloride 100 mmol/L (98-107); Cholesterol 192 mg/dL (0-200); Estimated Glomerular Filt Rate > 60; Glucose 78 mg/dL (65-110); HDL Direct 88 mg/dL; Sodium 136 mmol/L (137-145); Triglycerides 108 mg/dL (<150)
[2023-06-13 19:27] LABS: Vitamin D 25 Hydroxy 88.6 ng/mL
[2023-06-13 19:28] LABS: LDL Cholesterol Direct 72 mg/dL
[2023-06-13 19:59] LABS: Hemoglobin A1C 5.3 % (<5.7)
[2023-06-13 20:34] LABS: Hypochromasia 1+ (NORMAL); Monocytes Absolute Manual 0.24 K/mm3 (0.1-0.90); Monocytes Percent Manual 1 % (3-9); Neutrophils Percent Manual 16 % (46-73); Platelet Estimate Adequate (Adequate); Schistocytes None Seen (NORMAL); Total Cells Counted 100
== END 2023-06-13 13:02 | disposition home or self-care (01) ==
LOC: ANHGOSHLAB 13:03
PROVIDERS: PCP Family Medicine; Visit Provider Nurse Practitioner Family
DX: I10 Essential (primary) hypertension (principal); Z13.1 Encounter for screening for diabetes mellitus; Z13.220 Encounter for screening for lipoid disorders; Z13.29 Encounter for screening for other suspected endocrine disorder; Z13.21 Encounter for screening for nutritional disorder
CPT/HCPCS: 36415; 80053; 80061; 82306; 83036; 84443; 85025

== ENCOUNTER 2023-06-16 08:40 | Outpatient (CLI) | payer OTHER, SELFPAY ==
[2023-06-16 09:05] LABS: Basophils Absolute Auto 0.1 K/mm3 (0.0-0.1); Basophils Percent Auto 0.2 % (0.2-1.2); Eosinophils Absolute Auto 0.1 K/mm3 (0-0.3); Eosinophils Percent Auto 0.3 % (0-4.4); Hematocrit 42.6 % (37.0-47.0); Hemoglobin 13.6 g/dL (12.0-15.0); Immature Granulocyte Absolute 0.03 K/mm3 (0.00-0.031); Immature Granulocyte Percent A 0.1 % (0-0.5); Lymphocytes Absolute Auto 21.84 K/mm3 (0.9-3.2); Lymphocytes Percent Auto 87.4 % (18.3-44.2); Mean Corpuscular HGB Conc 31.9 g/dl (32-36); Mean Corpuscular Hemoglobin 31.1 pg (26-34); Mean Corpuscular Volume 97.5 fl (80-100); Mean Platelet Volume 7.9 fl (7.4-10.4); Monocytes Absolute Auto 0.2 K/mm3 (0.1-0.6); Monocytes Percent Auto 0.9 % (2.6-8.5); Neutrophils Absolute Auto 2.8 K/mm3 (1.3-6.7); Neutrophils Percent Auto 11.1 % (45.5-73.1); Platelet Count Result 337 k/mm3 (150-375); Red Blood Count 4.37 M/mm3 (4.2-5.4); Red Cell Distribution Width 12.2 % (11.5-14.5)
[2023-06-16 09:26] LABS: Alanine Aminotransferase 27 U/L (6-35); Albumin Level 4.7 g/dL (3.5-5.1); Alkaline Phosphatase 47 U/L (38-126); Anion Gap 5 mmol/L (8-16); Aspartate Amino Transferase 70 U/L (14-36); Atypical Lymphocytes Present; Bilirubin,Total 0.5 mg/dL (0.2-1.3); Blood Urea Nitrogen 10 mg/dL (7-17); Calcium 9.5 mg/dL (8.4-10.2); Carbon Dioxide 29 mmol/L (22-30); Chloride 101 mmol/L (98-107); Estimated Glomerular Filt Rate > 60; Glucose 109 mg/dL (65-110); Lactate Dehydrogenase 204 U/L (120-246); Platelet Estimate Adequate (Adequate); Potassium 4.5 mmol/L (3.4-5.0); Schistocytes None Seen (NORMAL); Sodium 135 mmol/L (137-145)
[2023-06-16 11:44] LABS: Immunoglobulin A 81 mg/dL (70-400); Immunoglobulin G 585 mg/dL (700-1600); Immunoglobulin M 60 mg/dL (40-230)
== END 2023-06-16 08:41 | disposition home or self-care (01) ==
LOC: ANHLAB 08:42
PROVIDERS: PCP Family Medicine; Visit Provider Internal Medicine Hematology & Oncology
DX: C91.10 Chronic lymphocytic leukemia of B-cell type not having achieved remission (principal)
CPT/HCPCS: 36415; 80053; 82784; 83615; 85025

== ENCOUNTER 2023-06-26 08:55 | Outpatient (CLI) | payer OTHER, SELFPAY ==
--- NOTE | ~2023-06-26 | CT_ITS ---
CT Scan of the Chest without Contrast: Clinical Indication: Lung cancer screening, personal history of nicotine dependence Technique: Contiguous sections were acquired throughout the chest without intravenous contrast. Dose reduction technique was used on this scan by utilizing automated exposure control and iterative recon struction technique. The dose-length product (DLP) was 62.71 mGy-cm. COMPARISON: 06/26/2022, 10/25/2021 Findings: There is no evidence of any significant mediastinal, hilar or axillary lymphadenopathy. Atherosclerotic calcifications of the aorta. There is no evidence of pleural or pericardial effusion. Moderate emphysema noted. No pulmonary nodule seen. Images through the upper abdomen reveal no abnormalities. Impression: Lung RADS 1: Negative. 12 month follow-up screening CT advised. Moderate emphysema. Reviewed, dictated and finalized at [facility]. Impression: Lung RADS 1: Negative. 12 month follow-up screening CT advised. Moderate emphysema.
== END 2023-06-26 08:56 | disposition home or self-care (01) ==
PROVIDERS: PCP Family Medicine; Visit Provider Student in an Organized Health Care Education/Training Program
DX: F17.218 Nicotine dependence, cigarettes, with other nicotine-induced disorders (principal); Z12.2 Encounter for screening for malignant neoplasm of respiratory organs; J43.9 Emphysema, unspecified
CPT/HCPCS: 71271

== ENCOUNTER 2023-07-01 05:44 | Day surgery (SDC) | payer OTHER, SELFPAY ==
--- NOTE | ~2023-07-01 | XR_ITS ---
EXAMINATION: XR fluoroscopy no charge DATE: 07/01/2023 12:13 INDICATION: Left C2-C3, C3, C4 medial branch thermal radiofrequency ablation TECHNIQUE: 4 fluoroscopic images of the upper cervical spine were obtained in lateral projection duri ng procedure performed by Dr. Subramanian. Radiologist was not present for the imaging or procedure. The [place] unt of fluoroscopy time used during this procedure was 0.4 minutes. COMPARISON: None. FINDINGS: Marked on the provided images indicates left-sided procedure. On the lateral projection the tips of 3 needles project over the C2-C3 facet joint and articular pillars of C3 and C4. IMPRESSION: 1. Fluoroscopy utilized during/upper cervical reported left C2-C3, C3 and C4 medial branch normal rad iofrequency ablation. See procedure note for further detail. Reviewed, dictated and finalized at location A. IMPRESSION: 1. Fluoroscopy utilized during/upper cervical reported left C2-C3, C3 and C4 me dial branch normal radiofrequency ablation. See procedure note for further deta il.
--- NOTE | 2023-07-01 04:44 | WPDHPUPDATE1 ---
History and Physical Update Update Date/Time: 07/01/23 04:44 History and Physical has been reviewed, including an updated exam of the patient. There are NO changes in the patient's condition. Risks, benefits, and alternatives have been discussed and questions answered. Patient agrees to proceed with procedure.
[2023-07-01 06:48] VITALS: BP 141/88; PULSE 75; RESP 16; TEMP 36.9; O2SAT 99
--- NOTE | 2023-07-01 07:20 | WPDANESEPPF ---
Anes - Initial Pre Proc Eval Procedure: Operation Date: 07/01/23 07:30 Proposed Procedures p Left C2-3, C3, C4 Medial Branch Thermal Radiofrequency Ablation - Jason Subramanian MD Date/Time: 07/01/23 07:20 Surgeon: Jason Subramanian MD Pre Op Diagnosis: Cervical Spondylosis Patient Data Age: 67 Gender: F Height: 1.55 m Weight: 44.6 kg Allergies Allergy/AdvReac Type Severity Reaction Status Date / Time Sulfa (Sulfonamide Allergy Intermediate rash / Verified 07/01/23 06:35 Antibiotics) hives Penicillins Allergy Mild rash Verified 07/01/23 06:35 Home Medications Medication Instructions Recorded Confirmed Type budesonide 160 mcg-glycopyr 9 2 inh inhalation BID #10.7 grams 06/07/22 07/01/23 Rx mcg-formot 4.8 mcg/actuation HFA inhaler (Breztri Aerosphere) cholecalciferol (vitamin D3) 50 50 mcg PO DAILY #1 cap 06/11/22 07/01/23 Rx mcg (2,000 unit) capsule alendronate 70 mg tablet (Fosamax) 70 mg PO WEEKLY #12 tabs 08/22/22 07/01/23 Rx losartan 100 mg tablet 100 mg PO DAILY #90 tabs 12/17/22 07/01/23 Rx ipratropium 0.5 mg-albuterol 3 mg See Rx Instructions .Route 01/10/23 07/01/23 Rx (2.5 mg base)/3 mL nebulization .COMPLEX #90 mL soln bupropion HCl 200 mg tablet,12 hr 200 mg PO BID #60 tabs 03/03/23 07/01/23 Rx sustained-release (Wellbutrin SR) cyclobenzaprine 10 mg tablet 10 mg PO TID PRN muscle spasm #30 05/15/23 07/01/23 Rx tabs hydrocodone 5 mg-acetaminophen 325 2 tablet PO Q12H PRN pain #90 tabs 06/06/23 07/01/23 Rx mg tablet trazodone 50 mg tablet See Rx Instructions .Route 06/23/23 07/01/23 Rx .COMPLEX #90 tabs Patient hx anesthesia problems: none Family hx anesthesia problems: none Results Review: All pre-operative results and documents have been reviewed as part of the pre-operative evaluation. [facility] Past Medical History Medical History Abnormal CT scan, lung Arthritis Cellulitis of hand CLL (chronic lymphocytic leukemia) Community acquired pneumonia COVID-19 (~04/2020) Elevated AST (SGOT) Elevated liver enzymes Elevated WBC count Emphysema of lung Essential hypertension Gastroesophageal reflux disease Hyponatremia Left shoulder pain LUQ pain Mild episode of recurrent major depressive disorder Neck Pain Nicotine vapor product user OAB (overactive bladder) Osteoporosis Persistent dry cough Postmenopausal Right rotator cuff tear Scheduled for surgery sometime in early 2020. Sepsis Tobacco use disorder, continuous Patient quit smoking in 2019 and has been vaping since that time. Trapezius muscle strain Surgical History Surgical History History of arthroscopic knee surgery History of hysterectomy History of local excision of skin lesion Benign papilloma of the left upper lip. S/P tooth extraction Status post excision of lipoma Mid upper back. Family History Family History Father Family history of suicide, Onset Age: 53 Mother Family history of congestive heart failure, Onset Age: 76 Family history of chronic obstructive pulmonary disease Daughter Seizure Social History Social History Social History: The patient lives alone in [place] with her dog. She smoked a pack of cigarettes a day for 50 years and quit in 2019. Now vapes. No significant alcohol use. No illicit substance use. Her son George and daughter Katja are her surrogate decision makers and she wishes to be a full code. Smoking packs per day: 1 Smoking cigarettes per day: 20.0 Years smoked: 50 Smoking pack-years: 50.00 Smoking status: Current every day smoker Tobacco type: e-cigarettes/vaping Second hand tobacco smoke exposure: No Additional smoking assessment comments: former cig smoker, vapes currently Alcohol i
[2023-07-01] MEDS: LACTATED RINGERS 1,000 ML 30 ML IV CONT (07:28)
[2023-07-01] MEDS: LIDOCAINE HCL 1% PF INJ 5 ML VIAL XX (07:55)
[2023-07-01] MEDS: BUPivacaine HCL 0.5% 10 ML AMP 3 ML INFILTRATE (08:13)
[2023-07-01 08:16] VITALS: BP 151/70; PULSE 81; RESP 18; O2SAT 100
--- NOTE | 2023-07-01 08:19 | W.PM.PROC2 ---
Procedure Note - Detailed Date of Procedure 07/01/23 Pre-op Diagnosis Cervical Spondylosis, Cervicalgia Post-op Diagnosis Same Procedure Performed Left C2-3, C3, C4 medial branch thermal radiofrequency ablation under fluoroscopic guidance Surgeon Jason Subramanian MD Anesthesia MAC and Local Indications chronic, recalcitrant axial cervical occipital neck pain with reduced range of motion and frequent headaches unresponsive to conservative care Description of Procedure INFORMED CONSENT: Risks, benefits and alternatives to the procedure were discussed in detail with the patient who expressed explicit understanding and consent to proceed. Patient was informed verbally and in written form regarding the risks associated with the procedure including the low risk of serious infection, bleeding/bruising, allergic reaction, nerve or organ injury, paralysis, procedural site pain or discomfort, worsening pain and/or mobility, failure to treat and/or disfigurement. The patient expressed explicit understanding and consent to proceed. All materials required for the procedure were available prior to procedure start. Site and side was marked prior to procedure and confirmed in the presence of the patient. PROCEDURE IN DETAIL: The patient was brought to the procedural suite and placed in the prone position with head stabilized with a ProneView pillow. Patient was made comfortable with use of pillows under the head/chest, hips and ankles. Skin overlying the injection site on the affected side(s) was prepared broadly with ChloraPrep applicator and draped in a sterile manner. Aseptic technique was used throughout. The endplates of the vertebral bodies at the site(s) of interest were aligned in the AP view. Ipsilateral oblique angulation was utilized to optimize visualization of the pars interarticularis at each target site. Local anesthesia was established by infiltration with approximately 5 mL of 1% lidocaine via a 1-1/2 inch 27-gauge needle. An 18-gauge 100mm RF needle with curved 10mm active tip was advanced in the AP view until the needle tip contacted the periosteum of the pars interarticularis at the target site, left C2-3 parallel to the course of the targeted branch. Lateral view was utilized to adjust and confirm the appropriate placement of the needle tip just anterior to the center point of the interarticularis, bisecting the distance between adjacent joint spaces. The appropriately-sized RF cannula was inserted into the RF needle and motor stimulation performed with no subjective or objective evidence of recruited muscle activity with stimulation up to 3.0 volts at a frequency of 2Hz. 0.5 mL solution of 2.0% PF lidocaine was injected after negative aspiration. Grounding electrode in place and functioning. After a 90s pause, lesioning was performed to 90 degrees centigrade for 90s ensuring lack of symptoms in the extremity throughout. Needle was withdrawn approcimately 1-2 mm and rotated 180 degrees. Lesioning repeated in a similar manner. Patient tolerated this well. No parasthesias were elicited. Needle was removed completely intact without difficulty. The same procedure was repeated for all intended levels/ structures on the ipsilateral side, left C3, C4, with identical methodology, modified to compensate for new location, with similar results and no evidence of complication. Patient tolerated this well. Images were saved and documented in the patient chart. Patient's skin was cleaned and sterile bandage applied. The patient tolerated the procedure well. The patient was transported to the recovery area in stable condition where they were observed for an appropriate amount of time prior to discharge, without evidence of complication. The patient was instructed to avoid excessive activity for the next 48 hours, including overhead work, reaching and device/computer usage. Showers only for 48 hours. They were instructed not to drive or operate heavy machinery for 24 hours.
--- NOTE | 2023-07-01 08:22 | WPDANESPN ---
Anes - Prog Note Post-Op Date/Time: 07/01/23 08:22 Cardiovascular status: normal Respiratory status: normal Airway patency: baseline Mental status: baseline Post-Op hydration status: normal Vital Signs: Last Vital Signs Temp 36.9 C 07/01/23 06:48 Pulse 75 07/01/23 06:48 Resp 16 07/01/23 06:48 BP 141/88 H 07/01/23 06:48 Pulse Ox 99 07/01/23 06:48 O2 Del Method Room Air 07/01/23 06:48 Pain Score (VAS): 0/10 Patient Feedback: Patient satisfied with anesthetic care.
[2023-07-01 08:26] VITALS: BP 138/85; PULSE 84; RESP 20; O2SAT 100
[2023-07-01 08:41] VITALS: BP 146/65; PULSE 82; RESP 20; O2SAT 100
[2023-07-01 08:56] VITALS: BP 153/81; PULSE 81; RESP 20; O2SAT 100
== END 2023-07-01 09:25 | disposition home or self-care (01) ==
PROVIDERS: PCP Family Medicine; Visit Provider Anesthesiology Pain Medicine
PROC: (CPT 64633; principal; 2023-07-01 07:30)
DX: M47.812 Spondylosis without myelopathy or radiculopathy, cervical region (principal)
CPT/HCPCS: 64633; 64634; 99199

== ENCOUNTER 2023-07-10 10:43 | Outpatient (CLI) | payer OTHER, SELFPAY ==
--- NOTE | ~2023-07-10 | MR_ITS ---
EXAMINATION: MR cervical spine wo con DATE: 07/10/2023 11:22 INDICATION: Spondylosis without myelopathy or radiculopathy. Neck pain. TECHNIQUE: Magnetic resonance imaging (MRI) of the cervical spine was performed without intravenous c ontrast. Sequences included sagittal T2-weighted FSE, sagittal T2-weighted FS FSE, sagittal T1-weight ed FSE, axial MERGE, and axial T2-weighted FSE. COMPARISON: None FINDINGS: There is 2 mm anterolisthesis of C3 on C4 and C7 on T1. There is mild chronic anterior wedg ing of T1 vertebral body. There is developmental anterior and posterior fusion at T3-T4. There is mil dly decreased disc height at C3-C4, severely decreased disc height at C4-C5 and C5-C6, and mildly dec reased disc height at C7-T1. The following disc levels are specifically discussed: C2-C3: The disc does not extend beyond the endplate margin. There is no uncovertebral joint osteoarth ritis. There is severe right and mild left facet joint osteoarthritis. There is mild right neural for aminal stenosis. There is no central canal stenosis. C3-C4: There is a central extrusion. There is mild bilateral uncovertebral joint osteoarthritis. Ther e is severe bilateral facet joint osteoarthritis. There is mild right and moderate left neural forami nal stenosis. There is mild central canal stenosis with ventral indentation of the spinal cord. C4-C5: The disc is bulging. There is severe bilateral uncovertebral joint osteoarthritis. There is se humberto bilateral facet joint osteoarthritis. There is mild right and moderate left neural foraminal moy nosis. There is mild central canal stenosis. C5-C6: The disc is bulging. There is severe bilateral uncovertebral joint osteoarthritis. There is se humberto right and moderate left facet joint osteoarthritis. There is moderate right and mild left neural foraminal stenosis. There is mild central canal stenosis. C6-C7: There is a central protrusion. There is no uncovertebral joint osteoarthritis. There is severe bilateral facet joint osteoarthritis. There is mild bilateral neural foraminal stenosis. There is mi ld central canal stenosis. C7-T1: The disc does not extend beyond the endplate margin. There is no uncovertebral joint osteoarth ritis. There is severe bilateral facet joint osteoarthritis. There is mild bilateral neural foraminal stenosis. There is no central canal stenosis. IMPRESSION: 1. Severe cervical spondylosis. Reviewed, dictated and finalized at location E.
== END 2023-07-10 10:44 | disposition home or self-care (01) ==
PROVIDERS: PCP Family Medicine; Visit Provider Family Medicine
DX: M54.2 Cervicalgia (principal); M47.812 Spondylosis without myelopathy or radiculopathy, cervical region
CPT/HCPCS: 72141

== ENCOUNTER 2023-08-19 07:58 | Day surgery (SDC) | payer OTHER, SELFPAY ==
--- NOTE | ~2023-08-19 | XR_ITS ---
EXAMINATION: XR fluoroscopy no charge INDICATION: Leftward C6-7 interlaminar injection TECHNIQUE: 19 intraoperative fluoroscopic images are submitted for review. Total fluoroscopic time is 14.6 seconds. COMPARISON: None available FINDINGS: Fluoroscopic images demonstrate injection of the left at C6-7. Please refer to procedure no te for full details. IMPRESSION: 1. Please refer to procedure note for full details. Reviewed, dictated and finalized at location L. TRIMMER
--- NOTE | 2023-08-19 05:47 | WPDHPUPDATE1 ---
History and Physical Update Update Date/Time: 08/19/23 05:47 History and Physical has been reviewed, including an updated exam of the patient. There are NO changes in the patient's condition. Risks, benefits, and alternatives have been discussed and questions answered. Patient agrees to proceed with procedure.
[2023-08-19 09:50] VITALS: BP 118/77; PULSE 71; RESP 20; TEMP 36.7; O2SAT 100
[2023-08-19 10:40] VITALS: BP 197/91; PULSE 83; RESP 20; O2SAT 98
[2023-08-19 10:46] VITALS: BP 173/76; PULSE 75; RESP 14; O2SAT 98
[2023-08-19] MEDS: BETAMETHASONE SODIUM PHOSPHATE PF INJ 6 MG/ML VIAL INFILTRATE (10:47)
[2023-08-19] MEDS: LIDOCAINE HCL 1% PF INJ 5 ML VIAL 3 ML XX (10:48)
--- NOTE | 2023-08-19 10:50 | W.PM.PROC2 ---
Procedure Note - Detailed Date of Procedure 08/19/23 Pre-op Diagnosis Cervical Radiculopathy Post-op Diagnosis Same Procedure Performed leftward C7-T1 interlaminar steroid injection under fluoroscopic guidance with contrast control. Surgeon Jason Subramanian MD Anesthesia Local Description of Procedure INFORMED CONSENT: Risks, benefits and alternatives to the procedure were discussed in detail with the patient who expressed explicit understanding and consent to proceed. Patient was informed verbally and in written form regarding the risks associated with the procedure including the low risk of serious infection, bleeding/bruising, allergic reaction, nerve or organ injury, paralysis, procedural site pain or discomfort, worsening pain and/or mobility, failure to treat and/or disfigurement. The patient expressed explicit understanding and consent to proceed. All materials required for the procedure were available prior to procedure start. Site and side was marked prior to procedure and confirmed in the presence of the patient. PROCEDURE IN DETAIL: The patient was brought to the procedural suite and placed in the prone position. Patient's head was positioned and stabilized with a ProneView pillow or equivalent. Patient was made comfortable with use of pillows under the chest, hips and ankles. Skin overlying the injection site was prepared broadly with ChloraPrep applicator and draped in a sterile manner. Aseptic technique was employed throughout. The endplates of the vertebral body at the site of interest were aligned in the AP view. Slight caudad tilt and ipsilateral oblique angulation was utilized to optimize visualization of the targeted posterior intervertebral foramen at C7-T1. Local anesthesia was established by infiltration with approximately 5 mL of 2% lidocaine via a 1-1/2 inch 27-gauge needle. A 20-gauge 4-inch Tuohy epidural needle was advanced intermittently until appropriate loss of resistance to air was identified via plastic loss of resistance syringe. Lateral view was used to confirm the appropriate positioning of the needle tip within the posterior epidural space. In the AP view, 2.0 mL of Omnipaque 300 contrast medium was injected after negative aspiration for CSF, blood or other bodily fluid, showing appropriate epidural spread of contrast without evidence of intravascular or intrathecal placement. After negative repeat aspiration for CSF, blood or other bodily fluid, A 4 mL solution containing 12 mg of betamethasone in sterile PF Normal Saline was injected after negative repeat aspiration. Appropriate spread of the injectate was confirmed with washout of previously injected contrast. No parasthesias were elicited. Needle was removed completely intact without difficulty. Images were saved and documented in the patient chart. Patient's skin was cleansed and sterile bandage applied. The patient tolerated the procedure well. The patient was transported to the recovery area in stable condition where they were observed for an appropriate amount of time prior to discharge, without evidence of complication. The patient was instructed to avoid excessive activity for the next 48 hours, including overhead work, reaching or extended device/computer usage. Showers only for 48 hours. They were instructed not to drive or operate heavy machinery for 24 hours. They are to monitor for severe headaches, fevers, chills, night sweats, erythema/swelling at the site or any other signs of infection, bleeding/bruising, bowel or bladder changes as well as new pain, weakness or numbness in the upper or lower extremity. Should they notice these changes, they are instructed to call our office immediately or report directly to the nearest Emergency Department if no answer or if after posted office hours. EXPOSURE:Time: 14.6s Total Dose: 1.05 mGy CONTRAST WASTED: 28mL Omnipaque 300. Complications None Condition Stable Disposition Same day [facility] - [facility]
[2023-08-19 10:52] VITALS: BP 150/81; PULSE 104; RESP 18; O2SAT 100
== END 2023-08-19 11:06 | disposition home or self-care (01) ==
PROVIDERS: PCP Nurse Practitioner Family; Visit Provider Anesthesiology Pain Medicine
PROC: (CPT 62321; principal; 2023-08-19 10:00)
DX: M54.12 Radiculopathy, cervical region (principal)
CPT/HCPCS: 62321; 99199

== ENCOUNTER 2023-10-07 08:18 | Day surgery (SDC) | payer OTHER, SELFPAY ==
[2023-09-29 10:51] VITALS: BMI 19.1
--- NOTE | ~2023-10-07 | XR_ITS ---
EXAMINATION: XR fluoroscopy no charge DATE: 10/07/2023 10:33 EQUIP TECH INDICATION: LEFT C4,C5,C6 BK . TECHNIQUE: 7 fluoroscopic images of the cervical spine were obtained during left C4, C5, C6 block per formed by the surgeon. I was not present during the procedure. Fluoroscopy exposure time was 27.2 sec onds seconds. Air Kerma 0.98 mGy. COMPARISON: None FINDINGS: Injection needles approach the left lateral aspect of C4-C6, followed by contrast injection. IMPRESSION: Fluoroscopic documentation of left C4, C5, C6 block. Please refer to the operative note for complete procedural details . Reviewed, dictated and finalized at location K. P TECH IMPRESSION: Fluoroscopic documentation of left C4, C5, C6 block. Please refer to the operat margie note for complete procedural details .
--- NOTE | 2023-10-07 10:06 | WPDHPUPDATE1 ---
History and Physical Update Update Date/Time: 10/07/23 10:06 History and Physical has been reviewed, including an updated exam of the patient. There are NO changes in the patient's condition. Risks, benefits, and alternatives have been discussed and questions answered. Patient agrees to proceed with procedure.
--- NOTE | 2023-10-07 10:06 | W.PM.PROC2 ---
Procedure Note - Detailed Date of Procedure 10/07/23 Pre-op Diagnosis Cervical spondylosis, chronic cervicalgia Post-op Diagnosis Same Procedure Performed left C4, C5, C6 medial branch nerve block (#1) addressing the left C4-5, C5-6 facet joints under fluoroscopic guidance with contrast control. Surgeon Jason Subramanian MD Anesthesia Local Description of Procedure INFORMED CONSENT: Risks, benefits and alternatives to the procedure were discussed in detail with the patient who expressed explicit understanding and consent to proceed. Patient was informed verbally and in written form regarding the risks associated with the procedure including the low risk of serious infection, bleeding/bruising, allergic reaction, nerve or organ injury, paralysis, procedural site pain or discomfort, worsening pain and/or mobility, failure to treat and/or disfigurement. The patient expressed explicit understanding and consent to proceed. All materials required for the procedure were available prior to procedure start. Site and side were marked prior to procedure and confirmed in the presence of the patient. PROCEDURE IN DETAIL: The patient was brought to the procedural suite and placed in the prone position with head stabilized with a ProneView pillow. Patient was made comfortable with use of pillows under the head/chest, hips and ankles. Skin overlying the injection site on the affected side(s) was prepared broadly with ChloraPrep applicator and draped in a sterile manner. Aseptic technique was used throughout. The endplates of the vertebral bodies at the site(s) of interest were aligned in the AP view. Ipsilateral oblique angulation was utilized to optimize visualization of the pars interarticularis at each target site. Local anesthesia was established by infiltration with approximately 5 mL of 1% lidocaine via a 1-1/2 inch 27-gauge needle. A 25-gauge 3.5 inch Quincke spinal needle was advanced until the needle tip contacted the periosteum of the pars interarticularis at the target site, left C4. Lateral view was utilized to confirm the appropriate placement of the needle tip just anterior to the center point of the interarticularis. In the Lateral view, 0.25 mL of Omnipaque 300 contrast medium was injected after negative aspiration for CSF, blood or other bodily fluid, showing appropriate extra-articular spread of contrast without evidence of intravascular, foraminal or intrathecal placement. A 0.25 mL solution of 0.5% PF bupivacaine was injected after negative repeat aspiration. Appropriate spread of the injectate was confirmed with washout of previously injected contrast. No parasthesias were elicited. Needle was removed completely intact without difficulty. The same exact procedure was repeated for all remaining levels on the ipsilateral side, left C5, C6 medial branches, modified as necessary to accommodate for the new target location with identical findings and results and no evidence of complication. Images were saved and documented in the patient chart. Patient's skin was cleansed and sterile bandage applied. The patient tolerated the procedure well. The patient was transported to the recovery area in stable condition where they were observed for an appropriate amount of time prior to discharge, without evidence of complication. Patient was instructed on the appropriate completion of a pain diary over the next 12-24 hours. The patient was instructed to avoid excessive activity for the next 48 hours, including climbing and frequent use of stairs. Showers only for 48 hours. They were instructed not to drive or operate heavy machinery for 24 hours. They are to monitor for severe headaches, fevers, chills, night sweats, erythema/swelling at the site or any other signs of infection, bleeding/bruising, bowel or bladder changes as well as new pain, weakness or numbness in the upper or lower extremity. Should they notice these changes, they are instructed to call our office immediately o
[2023-10-07 10:15] VITALS: BP 129/76; PULSE 70; RESP 20; TEMP 36.7; O2SAT 100
[2023-10-07 10:46] VITALS: BP 157/69; PULSE 81; RESP 17; O2SAT 96
[2023-10-07 10:51] VITALS: BP 139/57; PULSE 77; RESP 13; O2SAT 99
[2023-10-07] MEDS: BUPivacaine HCL 0.5% 10 ML AMP INFILTRATE (10:58)
[2023-10-07] MEDS: LIDOCAINE HCL 1% PF INJ 5 ML VIAL AFFCTD EYE (11:01)
[2023-10-07 11:03] VITALS: BP 121/76; PULSE 76; RESP 18; O2SAT 98
== END 2023-10-07 11:15 | disposition home or self-care (01) ==
PROVIDERS: PCP Nurse Practitioner Family; Visit Provider Anesthesiology Pain Medicine
PROC: (CPT 64490; principal; 2023-10-07 11:00)
DX: M47.812 Spondylosis without myelopathy or radiculopathy, cervical region (principal); M54.2 Cervicalgia
CPT/HCPCS: 64490; 64491; 99199

== ENCOUNTER 2023-11-11 07:38 | Day surgery (SDC) | payer OTHER, SELFPAY ==
--- NOTE | ~2023-11-11 | XR_ITS ---
EXAMINATION: XR fluoroscopy no charge DATE: 11/11/2023 8:50 ART APPRAISER INDICATION: LEFT C4-6 BK . TECHNIQUE: 7 fluoroscopic images and 1 cine clip of 4 images of the cervical spine were obtained duri ng left C4-6 nerve block, performed by Jason Subramanian MD. I was not present during the procedure. F luoroscopy exposure time was 26.5 seconds. Air Kerma 1.34 mGy. COMPARISON: 10/07/2023 FINDINGS/IMPRESSION: Fluoroscopic documentation of left C4-6 nerve block. Please refer to the operative note for complete procedural details. Reviewed, dictated and finalized at location K. APPRAISER
[2023-11-11 08:27] VITALS: BP 148/70; PULSE 70; RESP 16; TEMP 36.6; O2SAT 100
--- NOTE | 2023-11-11 08:45 | WPDHPUPDATE1 ---
History and Physical Update Update Date/Time: 11/11/23 08:45 History and Physical has been reviewed, including an updated exam of the patient. There are NO changes in the patient's condition. Risks, benefits, and alternatives have been discussed and questions answered. Patient agrees to proceed with procedure.
--- NOTE | 2023-11-11 08:45 | W.PM.PROC2 ---
Procedure Note - Detailed Date of Procedure 11/11/23 Pre-op Diagnosis Cervical Spondylosis, Chronic Cevicalgia Post-op Diagnosis Same Procedure Performed left C4, C5, C6 medial branch nerve blocks (# to) addressing the left C4-5, C5-6 facet joints under fluoroscopic guidance with contrast control. Surgeon Jason Subramanian MD Anesthesia Local Description of Procedure INFORMED CONSENT: Risks, benefits and alternatives to the procedure were discussed in detail with the patient who expressed explicit understanding and consent to proceed. Patient was informed verbally and in written form regarding the risks associated with the procedure including the low risk of serious infection, bleeding/bruising, allergic reaction, nerve or organ injury, paralysis, procedural site pain or discomfort, worsening pain and/or mobility, failure to treat and/or disfigurement. The patient expressed explicit understanding and consent to proceed. All materials required for the procedure were available prior to procedure start. Site and side were marked prior to procedure and confirmed in the presence of the patient. PROCEDURE IN DETAIL: The patient was brought to the procedural suite and placed in the prone position with head stabilized with a ProneView pillow. Patient was made comfortable with use of pillows under the head/chest, hips and ankles. Skin overlying the injection site on the affected side(s) was prepared broadly with ChloraPrep applicator and draped in a sterile manner. Aseptic technique was used throughout. The endplates of the vertebral bodies at the site(s) of interest were aligned in the AP view. Ipsilateral oblique angulation was utilized to optimize visualization of the pars interarticularis at each target site. Local anesthesia was established by infiltration with approximately 5 mL of 1% lidocaine via a 1-1/2 inch 27-gauge needle. A 25-gauge 3.5 inch Quincke spinal needle was advanced until the needle tip contacted the periosteum of the pars interarticularis at the target site, left C4. Lateral view was utilized to confirm the appropriate placement of the needle tip just anterior to the center point of the interarticularis. In the Lateral view, 0.25 mL of Omnipaque 300 contrast medium was injected after negative aspiration for CSF, blood or other bodily fluid, showing appropriate extra-articular spread of contrast without evidence of intravascular, foraminal or intrathecal placement. A 0.25 mL solution of 2.0% PF lidocaine was injected after negative repeat aspiration. Appropriate spread of the injectate was confirmed with washout of previously injected contrast. No parasthesias were elicited. Needle was removed completely intact without difficulty. The same exact procedure was repeated for all remaining levels on the ipsilateral side, left C5, C6 medial branches, modified as necessary to accommodate for the new target location with identical findings and results and no evidence of complication. Images were saved and documented in the patient chart. Patient's skin was cleansed and sterile bandage applied. The patient tolerated the procedure well. The patient was transported to the recovery area in stable condition where they were observed for an appropriate amount of time prior to discharge, without evidence of complication. Patient was instructed on the appropriate completion of a pain diary over the next 12-24 hours. The patient was instructed to avoid excessive activity for the next 48 hours, including climbing and frequent use of stairs. Showers only for 48 hours. They were instructed not to drive or operate heavy machinery for 24 hours. They are to monitor for severe headaches, fevers, chills, night sweats, erythema/swelling at the site or any other signs of infection, bleeding/bruising, bowel or bladder changes as well as new pain, weakness or numbness in the upper or lower extremity. Should they notice these changes, they are instructed to call our office immed
[2023-11-11 08:55] VITALS: BP 154/67; PULSE 72; RESP 16; O2SAT 96
[2023-11-11 09:05] VITALS: BP 154/70; PULSE 73; RESP 14; O2SAT 96
[2023-11-11] MEDS: LIDOCAINE HCL 1% PF INJ 5 ML VIAL 7 ML INFILTRATE (09:10)
[2023-11-11 09:12] VITALS: BP 156/72; PULSE 75; RESP 12; O2SAT 96
[2023-11-11 09:14] VITALS: BP 170/69; PULSE 75; RESP 18; O2SAT 98
[2023-11-11] MEDS: LIDOCAINE HCL 2% PF INJ 5 ML VIAL 2 ML INFILTRATE (09:14)
--- NOTE | 2023-11-11 10:11 | SUR.PHASEII ---
LATE NOTE, 0930; PT C/O SOME MILD TINGLING TO LT THUMB. THUMB PINK AND WARM. GOOD CAP REFILL.
== END 2023-11-11 09:33 | disposition home or self-care (01) ==
PROVIDERS: PCP Nurse Practitioner Family; Visit Provider Anesthesiology Pain Medicine
PROC: (CPT 64490; principal; 2023-11-11 09:00)
DX: M47.812 Spondylosis without myelopathy or radiculopathy, cervical region (principal); M54.2 Cervicalgia
CPT/HCPCS: 64490; 64491; 99199

== ENCOUNTER 2023-12-15 09:40 | Outpatient (CLI) | payer OTHER, SELFPAY ==
[2023-12-15 09:55] LABS: Basophils Absolute Auto 0.1 K/mm3 (0.0-0.1); Basophils Percent Auto 0.3 % (0.2-1.2); Eosinophils Absolute Auto 0.1 K/mm3 (0-0.3); Eosinophils Percent Auto 0.3 % (0-4.4); Hematocrit 39.8 % (37.0-47.0); Hemoglobin 12.7 g/dL (12.0-15.0); Immature Granulocyte Absolute 0.02 K/mm3 (0.00-0.031); Immature Granulocyte Percent A 0.1 % (0-0.5); Lymphocytes Absolute Auto 15.96 K/mm3 (0.9-3.2); Lymphocytes Percent Auto 84.4 % (18.3-44.2); Mean Corpuscular HGB Conc 31.9 g/dl (32-36); Mean Corpuscular Volume 93.9 fl (80-100); Mean Platelet Volume 8.3 fl (7.4-10.4); Monocytes Absolute Auto 0.3 K/mm3 (0.1-0.6); Monocytes Percent Auto 1.4 % (2.6-8.5); Neutrophils Absolute Auto 2.6 K/mm3 (1.3-6.7); Neutrophils Percent Auto 13.5 % (45.5-73.1); Platelet Count Result 342 k/mm3 (150-375); Red Blood Count 4.24 M/mm3 (4.2-5.4); Red Cell Distribution Width 12.5 % (11.5-14.5); White Blood Count 18.9 K/mm3 (4.5-10.0)
[2023-12-15 10:01] LABS: Atypical Lymphocytes Present; Platelet Estimate Adequate (Adequate); Schistocytes None Seen; Smudge Cells PRESENT
[2023-12-15 11:17] LABS: Anion Gap 4 mmol/L (4-12); Blood Urea Nitrogen 14 mg/dL (7-17); Calcium 10.4 mg/dL (8.4-10.2); Carbon Dioxide 31 mmol/L (22-30); Chloride 102 mmol/L (98-107); Estimated Glomerular Filt Rate > 60; Glucose 84 mg/dL (65-110); Potassium 4.3 mmol/L (3.4-5.0); Sodium 137 mmol/L (137-145)
== END 2023-12-15 09:41 | disposition home or self-care (01) ==
LOC: ANHLAB 09:42
PROVIDERS: PCP Nurse Practitioner Family; Visit Provider Internal Medicine Hematology & Oncology
DX: C91.10 Chronic lymphocytic leukemia of B-cell type not having achieved remission (principal)
CPT/HCPCS: 36415; 80048; 85025

== ENCOUNTER 2023-12-23 06:16 | Day surgery (SDC) | payer OTHER, SELFPAY ==
--- NOTE | ~2023-12-23 | XR_ITS ---
XR fluoroscopy no charge Indication:left C4, C5 and C6 thermal radiofrequency ablation TECHNIQUE: Fluoroscopy used during left C4, C5 and C6 thermal radiofrequency ablation performed by Kelli pham [Jason Subramanian MD] on 12/23/2023. 45 seconds of fluoroscopy time with 3 fluoroscopic images capt ured. FINDINGS: Correlate with procedure note. IMPRESSION: Fluoroscopy used during left C4, C5 and C6 thermal radiofrequency ablation. Reviewed, dictated and finalized at location B. IMPRESSION: Fluoroscopy used during left C4, C5 and C6 thermal radiofrequency a blation.
--- NOTE | 2023-12-23 06:43 | WPDHPUPDATE1 ---
History and Physical Update Update Date/Time: 12/23/23 06:43 History and Physical has been reviewed, including an updated exam of the patient. There are NO changes in the patient's condition. Risks, benefits, and alternatives have been discussed and questions answered. Patient agrees to proceed with procedure.
--- NOTE | 2023-12-23 06:45 | W.PM.PROC2 ---
Procedure Note - Detailed Date of Procedure 12/23/23 Pre-op Diagnosis Cervical Radiculopathy Post-op Diagnosis Same Procedure Performed thermal radiofrequency ablation of the left C4, C5, C6 medial branches a denervating the left C4-5, C5-6 facet joints under fluoroscopic guidance. Surgeon Jason Subramanian MD Anesthesia MAC and Local Description of Procedure INFORMED CONSENT: Risks, benefits and alternatives to the procedure were discussed in detail with the patient who expressed explicit understanding and consent to proceed. Patient was informed verbally and in written form regarding the risks associated with the procedure including the low risk of serious infection, bleeding/bruising, allergic reaction, nerve or organ injury, paralysis, procedural site pain or discomfort, worsening pain and/or mobility, failure to treat and/or disfigurement. The patient expressed explicit understanding and consent to proceed. All materials required for the procedure were available prior to procedure start. Site and side was marked prior to procedure and confirmed in the presence of the patient. PROCEDURE IN DETAIL: The patient was brought to the procedural suite and placed in the prone position with head stabilized with a ProneView pillow. Patient was made comfortable with use of pillows under the head/chest, hips and ankles. Skin overlying the injection site on the affected side(s) was prepared broadly with ChloraPrep applicator and draped in a sterile manner. Aseptic technique was used throughout. The endplates of the vertebral bodies at the site(s) of interest were aligned in the AP view. Ipsilateral oblique angulation was utilized to optimize visualization of the pars interarticularis at each target site. Local anesthesia was established by infiltration with approximately 5 mL of 1% lidocaine via a 1-1/2 inch 27-gauge needle. An 18-gauge 100mm RF needle with curved 10mm active tip was advanced in the AP view until the needle tip contacted the periosteum of the pars interarticularis at the target site, Left C4 parallel to the course of the targeted branch. Lateral view was utilized to adjust and confirm the appropriate placement of the needle tip just anterior to the center point of the interarticularis, bisecting the distance between adjacent joint spaces. The appropriately-sized RF cannula was inserted into the RF needle and motor stimulation performed with no subjective or objective evidence of recruited muscle activity with stimulation up to 3.0 volts at a frequency of 2Hz. 0.5 mL solution of 2.0% PF lidocaine was injected after negative aspiration. Grounding electrode in place and functioning. After a 90s pause, lesioning was performed to 90 degrees centigrade for 90s ensuring lack of symptoms in the extremity throughout. Needle was withdrawn approcimately 1-2 mm and rotated 180 degrees. Lesioning repeated in a similar manner. Patient tolerated this well. No parasthesias were elicited. Needle was removed completely intact without difficulty. The same procedure was repeated for all intended levels/ structures on the ipsilateral side, left C5, C6, with identical methodology, modified to compensate for new location, with similar results and no evidence of complication. Patient tolerated this well. Images were saved and documented in the patient chart. Patient's skin was cleaned and sterile bandage applied. The patient tolerated the procedure well. The patient was transported to the recovery area in stable condition where they were observed for an appropriate amount of time prior to discharge, without evidence of complication. The patient was instructed to avoid excessive activity for the next 48 hours, including overhead work, reaching and device/computer usage. Showers only for 48 hours. They were instructed not to drive or operate heavy machinery for 24 hours. They are to monitor for severe headaches, fevers, chills, night sweats, erythema/swelling at the site or any ot
[2023-12-23 07:44] VITALS: BMI 18.7
[2023-12-23 07:45] VITALS: BP 145/52; PULSE 74; RESP 17; TEMP 37.1; O2SAT 96
--- NOTE | 2023-12-23 08:58 | WPDANESEPPF ---
Anes - Initial Pre Proc Eval Procedure: Operation Date: 12/23/23 08:45 Proposed Procedures p Left C4, C5, C6 Medial Branch Thermal Radiofrequency Ablation Addressing Left C4-5, C5-6 Facet Joints under Fluoroscopic Guidance - Jason Subramanian MD Date/Time: 12/23/23 08:58 Surgeon: Jason Subramanian MD Pre Op Diagnosis: Cervical Radiculopathy Patient Data Age: 68 Gender: F Height: 1.55 m Weight: 45 kg Allergies Allergy/AdvReac Type Severity Reaction Status Date / Time Sulfa (Sulfonamide Allergy Intermediate rash / Verified 12/23/23 07:42 Antibiotics) hives Penicillins Allergy Mild rash Verified 12/23/23 07:42 Home Medications Medication Instructions Recorded Confirmed Type budesonide 160 mcg-glycopyr 9 2 inh inhalation BID #10.7 grams 06/07/22 12/05/23 Rx mcg-formot 4.8 mcg/actuation HFA inhaler (Breztri Aerosphere) albuterol sulfate 90 mcg/actuation 2 puff inhalation QID PRN 09/29/23 12/05/23 History aerosol inhaler Shortness Of Breath alendronate 70 mg tablet (Fosamax) 70 mg PO WEEKLY #12 tabs 09/30/23 12/05/23 Rx bupropion HCl 200 mg tablet,12 hr 200 mg PO BID #60 tabs 10/28/23 12/23/23 Rx sustained-release (Wellbutrin SR) losartan 100 mg tablet 100 mg PO DAILY #90 tabs 12/09/23 12/23/23 Rx trazodone 50 mg tablet See Rx Instructions .Route 12/17/23 12/23/23 Rx .COMPLEX #90 tabs Patient hx anesthesia problems: none Family hx anesthesia problems: none Results Review: All pre-operative results and documents have been reviewed as part of the pre-operative evaluation. [facility] Past Medical History Medical History (Updated 09/05/23 @ 13:39 by Jacqui Palmer APRN) Abnormal CT scan, lung Arthritis Cellulitis of hand CLL (chronic lymphocytic leukemia) Community acquired pneumonia COVID-19 (~04/2020) Elevated AST (SGOT) Elevated liver enzymes Elevated WBC count Emphysema of lung Essential hypertension Gastroesophageal reflux disease Hyponatremia Left shoulder pain LUQ pain Mild episode of recurrent major depressive disorder Neck Pain Nicotine vapor product user OAB (overactive bladder) Osteoporosis Persistent dry cough Postmenopausal Right rotator cuff tear Scheduled for surgery sometime in early 2020. Sepsis Sore throat Thrush Tobacco use disorder, continuous Patient quit smoking in 2019 and has been vaping since that time. Trapezius muscle strain Surgical History Surgical History History of arthroscopic knee surgery History of hysterectomy History of local excision of skin lesion Benign papilloma of the left upper lip. S/P tooth extraction Status post excision of lipoma Mid upper back. Family History Family History Father Family history of suicide, Onset Age: 53 Mother Family history of congestive heart failure, Onset Age: 76 Family history of chronic obstructive pulmonary disease Daughter Seizure Social History Social History Social History: The patient lives alone in [place] with her dog. She smoked a pack of cigarettes a day for 50 years and quit in 2019. Now vapes. No significant alcohol use. No illicit substance use. Her son George and daughter Katja are her surrogate decision makers and she wishes to be a full code. Smoking packs per day: 1 Smoking cigarettes per day: 20.0 Years smoked: 50 Smoking pack-years: 50.00 Smoking status: Current every day smoker Tobacco type: cigarettes Second hand tobacco smoke exposure: Yes Additional smoking assessment comments: former cig smoker, vapes currently Alcohol intake: never Substance use: never Substance use type: does not use Lack of Transportation: No Lack of Food: Never True Current Housing: I Have Housing Concerned About Future Housing: No Difficulty Paying Gas/Elec
[2023-12-23] MEDS: LACTATED RINGERS 1,000 ML 30 ML IV CONT (09:00)
[2023-12-23] MEDS: BUPivacaine HCL 0.5% 10 ML AMP 3.5 ML INFILTRATE (09:37)
[2023-12-23] MEDS: LIDOCAINE HCL 2% PF INJ 5 ML VIAL INFILTRATE (09:37)
[2023-12-23] MEDS: LIDOCAINE HCL 1% PF INJ 5 ML VIAL 3.5 ML INFILTRATE (09:39)
[2023-12-23 09:42] VITALS: BP 141/63; PULSE 70; RESP 16; O2SAT 95
[2023-12-23 09:55] VITALS: BP 142/64; PULSE 72; RESP 16; O2SAT 98
[2023-12-23 10:01] VITALS: BP 142/64; PULSE 63; RESP 16; O2SAT 99
--- NOTE | 2023-12-23 10:25 | WPDANESPN ---
Anes - Prog Note Post-Op Date/Time: 12/23/23 10:25 Cardiovascular status: normal Respiratory status: normal Airway patency: baseline Mental status: baseline Post-Op hydration status: normal Vital Signs: Last Vital Signs Temp 37.1 C 12/23/23 07:45 Pulse 63 12/23/23 10:01 Resp 16 12/23/23 10:01 BP 142/64 H 12/23/23 10:01 Pulse Ox 99 12/23/23 10:01 O2 Del Method Room Air 12/23/23 10:01 Pain Score (VAS): 0 Patient Feedback: Patient satisfied with anesthetic care.
== END 2023-12-23 10:23 | disposition home or self-care (01) ==
PROVIDERS: PCP Nurse Practitioner Family; Visit Provider Anesthesiology Pain Medicine
PROC: (CPT 64633; principal; 2023-12-23 08:45)
DX: M54.12 Radiculopathy, cervical region (principal)
CPT/HCPCS: 64633; 64634; 99199

== ENCOUNTER 2024-06-18 09:34 | Outpatient (CLI) | payer OTHER, SELFPAY ==
[2024-06-18 09:47] LABS: Basophils Percent Auto 0.2 % (0.2-1.2); Eosinophils Absolute Auto 0.1 K/mm3 (0-0.3); Eosinophils Percent Auto 0.3 % (0-4.4); Hematocrit 38.5 % (37.0-47.0); Hemoglobin 12.4 g/dL (12.0-15.0); Immature Granulocyte Absolute 0.03 K/mm3 (0.00-0.031); Immature Granulocyte Percent A 0.1 % (0-0.5); Lymphocytes Absolute Auto 16.77 K/mm3 (0.9-3.2); Lymphocytes Percent Auto 82.2 % (18.3-44.2); Mean Corpuscular HGB Conc 32.2 g/dl (32-36); Mean Corpuscular Hemoglobin 30.3 pg (26-34); Mean Corpuscular Volume 94.1 fl (80-100); Mean Platelet Volume 7.9 fl (7.4-10.4); Monocytes Absolute Auto 0.2 K/mm3 (0.1-0.6); Monocytes Percent Auto 1.1 % (2.6-8.5); Neutrophils Absolute Auto 3.3 K/mm3 (1.3-6.7); Neutrophils Percent Auto 16.1 % (45.5-73.1); Platelet Count Result 256 k/mm3 (150-375); Red Blood Count 4.09 M/mm3 (4.2-5.4); Red Cell Distribution Width 11.9 % (11.5-14.5); White Blood Count 20.4 K/mm3 (4.5-10.0)
[2024-06-18 09:52] LABS: Atypical Lymphocytes Present; Platelet Estimate Adequate (Adequate); Schistocytes None Seen; Smudge Cells FEW
[2024-06-18 10:34] LABS: Alanine Aminotransferase 19 U/L (6-35); Albumin Level 4.3 g/dL (3.5-5.1); Alkaline Phosphatase 60 U/L (38-126); Anion Gap 6 mmol/L (4-12); Aspartate Amino Transferase 25 U/L (14-36); Bilirubin,Total 0.4 mg/dL (0.2-1.3); Blood Urea Nitrogen 7 mg/dL (7-17); Calcium 9.3 mg/dL (8.4-10.2); Carbon Dioxide 28 mmol/L (22-30); Chloride 100 mmol/L (98-107); Estimated Glomerular Filt Rate > 60; Glucose 100 mg/dL (65-110); Lactate Dehydrogenase 176 U/L (120-246); Potassium 4.2 mmol/L (3.4-5.0); Sodium 134 mmol/L (137-145)
== END 2024-06-18 09:35 | disposition home or self-care (01) ==
LOC: ANHLAB 09:35
PROVIDERS: PCP Nurse Practitioner Family; Visit Provider Internal Medicine Hematology & Oncology
DX: C91.10 Chronic lymphocytic leukemia of B-cell type not having achieved remission (principal)
CPT/HCPCS: 36415; 80053; 83615; 85025

== ENCOUNTER 2024-06-28 09:47 | Outpatient (CLI) | payer OTHER, SELFPAY ==
--- NOTE | ~2024-06-28 | CT_ITS ---
CT Scan of the Chest without Contrast: Clinical Indication: Lung cancer screening, nicotine dependence Technique: Contiguous sections were acquired throughout the chest without intravenous contrast. Dose reduction technique was used on this scan by utilizing automated exposure control and iterative recon struction technique. The dose-length product (DLP) was 58.44 mGy-cm. COMPARISON: 06/26/2023 Findings: There is no evidence of any significant mediastinal, hilar or axillary lymphadenopathy. The mediastin al soft tissues appear normal. There is no evidence of pleural or pericardial effusion. The lungs are clear. No pulmonary nodules or infiltrates are noted. There is moderate to advanced emp hysema. Images through the upper abdomen reveal no abnormalities. Impression: Lung RADS 1: Negative. 12 month follow-up screening CT advised. Moderate to advanced. Reviewed, dictated and finalized at [facility]. Impression: Lung RADS 1: Negative. 12 month follow-up screening CT advised. Moderate to advanced.
== END 2024-06-28 09:48 | disposition home or self-care (01) ==
PROVIDERS: PCP Nurse Practitioner Family; Visit Provider Student in an Organized Health Care Education/Training Program
DX: Z12.2 Encounter for screening for malignant neoplasm of respiratory organs (principal); Z87.891 Personal history of nicotine dependence
CPT/HCPCS: 71271

== ENCOUNTER 2024-07-13 06:56 | Day surgery (SDC) | payer OTHER, SELFPAY ==
--- NOTE | ~2024-07-13 | XR_ITS ---
INTRAOPERATIVE FLUOROSCOPY: CLINICAL HISTORY: 69 years old Female; LEFT C4,C5,C6 MEDIAL BRANCH RADIOFREQ ABLATION PROCEDURE COMMENTS: Limited intraoperative fluoroscopy of the cervical spine was performed. CUMULATIVE DOSE: 1.26 mGy FLUOROSCOPY TIME: 25.9 seconds FINDINGS/IMPRESSION: Please refer to operative note for further details. Reviewed, dictated and finalized at location A. TRONIC SPECIALIST
[2024-07-13 08:04] VITALS: BP 137/62; PULSE 68; RESP 18; TEMP 36.8; O2SAT 97; BMI 18.6
[2024-07-13] MEDS: LACTATED RINGERS 1,000 ML 30 ML IV CONT (08:18)
--- NOTE | 2024-07-13 08:52 | P.PNAN_ITS ---
Anes - Initial Pre Proc Eval Procedure: Operation Date: 07/13/24 09:00 Proposed Procedures p Left C4, C5, C6 Medial Branch Radiofrequency Ablation Addressing Left C4-5, C5-6 Facet Joints under Fluoroscopic Guidance - Jason Subramanian MD Date/Time: 07/13/24 08:52 Surgeon: Jason Subramanian MD Pre Op Diagnosis: Cervical Spondylosis Patient Data Age: 69 Gender: F Height: 1.55 m Weight: 44.6 kg Last Vital Signs Temp 36.8 C 07/13/24 08:04 Pulse 68 07/13/24 08:04 Resp 18 07/13/24 08:04 BP 137/62 07/13/24 08:04 Pulse Ox 97 07/13/24 08:04 O2 Del Method Room Air 07/13/24 08:04 Allergies Allergy/AdvReac Type Severity Reaction Status Date / Time Sulfa (Sulfonamide Allergy Intermediate rash / Verified 07/13/24 07:51 Antibiotics) hives Penicillins Allergy Mild rash Verified 07/13/24 07:51 Home Medications Medication Instructions Recorded Confirmed Type budesonide 160 mcg-glycopyr 9 2 inh inhalation BID #10.7 grams 06/07/22 07/13/24 Rx mcg-formot 4.8 mcg/actuation HFA inhaler (Breztri Aerosphere) albuterol sulfate 90 mcg/actuation 2 puff inhalation QID PRN 09/29/23 07/13/24 History aerosol inhaler Shortness Of Breath alendronate 70 mg tablet (Fosamax) 70 mg PO WEEKLY #12 tabs 09/30/23 07/13/24 Rx trazodone 50 mg tablet See Rx Instructions .Route 03/15/24 07/13/24 Rx .COMPLEX #180 tabs bupropion HCl 200 mg tablet,12 hr 200 mg PO BID #60 tabs 04/27/24 07/13/24 Rx sustained-release (Wellbutrin SR) losartan 100 mg tablet 100 mg PO DAILY #90 tabs 06/07/24 07/13/24 Rx amlodipine 10 mg tablet 10 mg PO DAILY 06/15/24 07/13/24 History cimetidine 300 mg tablet 300 mg PO DAILY #90 tabs 06/25/24 07/13/24 Rx hydrocodone 5 mg-acetaminophen 325 1 tablet PO BID PRN pain 30 days 06/25/24 Rx mg tablet #60 tabs Patient hx anesthesia problems: none Family hx anesthesia problems: none Results Review: All pre-operative results and documents have been reviewed as part of the pre- operative evaluation. [facility] Past Medical History Medical History Abnormal CT scan, lung Arthritis Cellulitis of hand CLL (chronic lymphocytic leukemia) Community acquired pneumonia Cough COVID-19 (~04/2020) Dorsalgia Elevated AST (SGOT) Elevated liver enzymes Elevated WBC count Emphysema of lung Essential hypertension Gastroesophageal reflux disease Hyponatremia Left shoulder pain LUQ pain Mild episode of recurrent major depressive disorder Neck Pain Nicotine vapor product user OAB (overactive bladder) Osteoporosis Persistent dry cough Postmenopausal Right rotator cuff tear Scheduled for surgery sometime in early 2020. Sepsis Sore throat Thrush Tobacco use disorder, continuous Patient quit smoking in 2019 and has been vaping since that time. Trapezius muscle strain Surgical History Surgical History History of arthroscopic knee surgery History of hysterectomy History of local excision of skin lesion Benign papilloma of the left upper lip. S/P tooth extraction Status post excision of lipoma Mid upper back. Family History Family History Father Family history of suicide, Onset Age: 53 Mother Family history of congestive heart failure, Onset Age: 76 Family history of chronic obstructive pulmonary disease Daughter Seizure Social History Social History Social History: The patient lives alone in [place] with her dog. She smo ked a pack of cigarettes a day for 50 years and quit in 2019. Now vapes. No significant alcohol use. No illicit substance use. Her son George and daughter Katja are her surrogate decision makers and she wishes to be a full code. Smoking packs per day: 1 Smoking cigarettes per day: 20.0 Years smoked: 50 Smoking pack-years: 50.00 Smoking status: Former smoker Tobacco type: e-cigarettes/vaping Second hand tobacco smoke exposure: Yes Additional smoking assessment comments: former smoker, vapes currently patient does smoke cig anymore only vape Alcohol intake: never Substance use: never Substance use type: does not use Do You Feel Safe in your Home?: Yes Lack of Transportation: No Lack of Food: Never True Current Housing: I Have Housing Concerned About Future Housing: No Difficulty Paying Gas/Electric Bills: No Difficulty Paying for Meds: No Currently Unemployed: No Education: High School Diploma/GED Difficulty w/ Childcare or Family Care: No Living arrangements: alone Occupation/Education: occupation Gender identity (if verbalized by the patient): Female Spiritual care concerns: No Agree to blood products: Yes Anes - Eval Final PreProcedure Day of Procedure 07/13/24 08:52 Patient weight: thin Heart: regular rate and rhythm Lungs: clear to auscultation Airway: Mallampati scale class II Neurological: alert and oriented Last oral intake: >/= 8 hours ASA classification: III Emergent: no Anesthetic plan: proceed Anesthesia type and monitoring: general GIVS and standard monitoring Results Review: All pre-operative results and documents have been reviewed as part of the pre- operative evaluation. Informed Consent: The patient's anesthetic plan and its attendant risks and benefits were discussed with the patient/family/POA. Questions were solicited and answers provided to the satisfaction of the patient/family/POA.
--- NOTE | 2024-07-13 09:12 | WPDHPUPDATE1 ---
History and Physical Update Update Date/Time: 07/13/24 09:12 History and Physical has been reviewed, including an updated exam of the patient. There are NO changes in the patient's condition. Risks, benefits, and alternatives have been discussed and questions answered. Patient agrees to proceed with procedure.
--- NOTE | 2024-07-13 09:13 | P.OP_ITS ---
Procedure Note - Detailed Date of Procedure 07/13/24 Pre-op Diagnosis Cervical Spondylosis, cervicalgia Post-op Diagnosis Same Procedure Performed Thermal Radiofrequency Ablation of the Left Cervical Medial Branches at C4, C5, C6 to ablate the Ipsilateral C4-5, C5-6 facet joints under Fluoroscopic Guidance (2 levels treated). Surgeon Jason Subramanian MD Licensed Therapist None. Anesthesia Local (w/ IV Moderate Sedation) Description of Procedure INFORMED CONSENT: Risks, benefits and alternatives to the procedure were discussed in detail with the patient who expressed explicit understanding and consent to proceed. Patient was informed verbally and in written form regarding the risks associated with the procedure including the low risk of serious infection, bleeding/bruising, allergic reaction, nerve or organ injury, paralysis, procedural site pain or discomfort, worsening pain and/or mobility, failure to treat and/or disfigurement. The patient expressed explicit understanding and consent to proceed. All materials required for the procedure were available prior to procedure start. Site and side was marked prior to procedure and confirmed in the presence of the patient. PROCEDURE IN DETAIL: The patient was brought to the procedural suite and placed in the prone position with head stabilized with a horseshoe pillow and cervical ramp. Patient was made comfortable with use of pillows under the head/chest, hips and ankles. Skin overlying the injection site on the affected side(s) was prepared broadly with 10mL tinted ChloraPrep applicator and draped in a sterile manner. Strict aseptic technique was utilized throughout. The endplates of the vertebral bodies at the site(s) of interest were aligned in the AP view. Ipsilateral oblique angulation was utilized to optimize visualization of the pars interarticularis at each target site. Local anesthesia was established by infiltration with approximately 5 mL of 1% lidocaine via a 1-1/2 inch 27-gauge needle. An 18-gauge 100mm RF needle with curved 10mm active tip was advanced in the AP view until the needle tip contacted the periosteum of the pars interarticularis at the target site, left C4 parallel to the course of the targeted peripheral nerve branch. Lateral view was utilized to adjust and confirm the appropriate placement of the needle tip just anterior to the center point of the interarticularis, bisecting the distance between adjacent joint spaces. The appropriately-sized RF cannula was inserted into the RF needle and motor stimulation performed with no subjective or objective evidence of recruited muscle activity with stimulation up to 2.0 volts at a frequency of 2Hz. A 1.5 mL solution of 2.0% PF lidocaine was injected via the appropriately positioned RF cannula after negative aspiration. The grounding electrode was confirmed to be in place with good contact and functioning appropriately. After a 90s pause, lesioning was performed to 90 degrees centigrade for 90s ensuring lack of symptoms in the extremity throughout. Needle was withdrawn approximately 1-2 mm and rotated 180 degrees at each level. Lesioning was then repeated in a similar manner as above. The patient tolerated this well. No parasthesias were elicited. Needle was removed completely intact without difficulty. The same procedure was then repeated for all intended levels/ structures on the ipsilateral side, left C5, C6, with identical methodology, modified to compensate for new location, with similar results and no evidence of complication. Images were saved and documented in the patient's chart. The patient's skin was cleaned and sterile bandages applied. The patient tolerated the procedure well. The patient was transported to the recovery area in stable condition where they were observed for an appropriate amount of time prior to discharge, without evidence of complication. The patient was instructed to avoid excessive activity for the next 48 hours, including overhead work, reaching and device/computer usage. Showers only for 48 hours. They were instructed not to drive or operate heavy machinery for 24 hours. They are to monitor for severe headaches, fevers, chills, night sweats, erythema/swelling at the site or any other signs of infection, bleeding/bruising, bowel or bladder changes as well as new pain, weakness or numbness in the upper or lower extremity. Should they notice these changes, they are instructed to call our office immediately or report directly to the nearest Emergency Department if no answer or if after posted office hours. Complications None Condition Stable Disposition PACU [facility] Billing Surgery - Charge Forward: Surgery Billing
[2024-07-13] MEDS: LIDOCAINE HCL 2% PF INJ 5 ML VIAL 10 ML INFILTRATE (09:34)
[2024-07-13] MEDS: BUPivacaine HCL 0.5% 10 ML AMP INFILTRATE (09:34)
[2024-07-13] MEDS: LIDOCAINE HCL 2% PF INJ 5 ML VIAL INFILTRATE (09:34)
[2024-07-13 09:38] VITALS: BP 142/75; PULSE 80; RESP 14; O2SAT 99
--- NOTE | 2024-07-13 09:45 | WPDANESPN ---
Anes - Prog Note Post-Op Date/Time: 07/13/24 09:45 Cardiovascular status: normal Respiratory status: normal Airway patency: baseline Mental status: baseline Post-Op hydration status: normal Vital Signs: Last Vital Signs Temp 36.8 C 07/13/24 08:04 Pulse 68 07/13/24 08:04 Resp 18 07/13/24 08:04 BP 137/62 07/13/24 08:04 Pulse Ox 97 07/13/24 08:04 O2 Del Method Room Air 07/13/24 08:04 Pain Score (VAS): 0/10 Patient Feedback: Patient satisfied with anesthetic care.
[2024-07-13 09:48] VITALS: BP 148/80; PULSE 79; RESP 15; O2SAT 97
[2024-07-13 09:58] VITALS: BP 147/75; PULSE 79; RESP 15; O2SAT 94
[2024-07-13 10:08] VITALS: BP 151/74; PULSE 72; RESP 16; O2SAT 97
[2024-07-13 10:15] VITALS: BP 156/68; PULSE 70; RESP 14; O2SAT 98
== END 2024-07-13 10:21 | disposition home or self-care (01) ==
PROVIDERS: PCP Nurse Practitioner Family; Visit Provider Anesthesiology Pain Medicine
PROC: (CPT 64633; principal; 2024-07-13 09:00)
DX: M47.812 Spondylosis without myelopathy or radiculopathy, cervical region (principal); M54.2 Cervicalgia
CPT/HCPCS: 64633; 64634; 99199

== ENCOUNTER → 2025-01-03 08:52 | Outpatient (REF) | payer OTHER, SELFPAY ==
--- OUTSIDE RECORDS SUMMARY | 2025-01-03 09:17 | XMS_ITS | Clinical Summary ---
Author Organization [facility] Address [facility] [place] [address] Care Team Providers Care Customer Order Clerk Name Role Phone Flaca Ch [facility] Primary Care Provider Allergies Active Allergy Reactions Criticality Noted Date Comments Penicillins Hives,Rash Low 09/28/2021 Sulfa Antibiotics Hives,Rash Low 09/28/2021 Medications buPROPion SR 200 MG TABLET SR 12 HR 12 hr tablet TAKE ONE TABLET BY MOUTH IN THE MORNING AND ONE TABLET AT NOON. 1 Active ipratropium-al buterol 0.5-2.5 (3) MG/3ML Solution 1 Active traZODone 50 MG tablet TAKE 1/2 (ONE-HALF) TO 2 TABLETS BY MOUTH ONCE DAILY AT BEDTIME 1 Active Spacer/Aero-Ho lding Chambers DeviceIndicati ons:Centrilobu lar emphysema (CMS/HCC HHS/HCC) To be used with inhaler 1 each 2 Active alendronate (FOSAMAX) 70 MG tablet Take 1 tablet (70 mg total) by mouth once a week. 3 Active losartan (COZAAR) 100 MG tablet Take 1 tablet (100 mg total) by mouth daily. 3 Active benzonatate (TESSALON) 100 MG capsule Take 1 capsule (100 mg total) by mouth 3 (three) times daily as needed. FOR COUGH 3 Active HYDROcodone-ac etaminophen (NORCO) 5-325 MG tablet Take 1 tablet by mouth every 12 (twelve) hours as needed. Active albuterol sulfate HFA 108 (90 Base) MCG/ACT inhalerIndicat ions:Centrilob ular emphysema ([facility]) Inhale 2 puffs into the lungs every 6 (six) hours as needed for Wheezing. 18 g 3 4 Active amLODIPine (NORVASC) 10 MG tablet Take 1 tablet (10 mg total) by mouth daily. 4 Active budesonide-gly copyrrolate-fo rmoterol (BREZTRI AEROSPHERE) 160-9-4.8 MCG/ACT inhalerIndicat ions:Centrilob ular emphysema ([facility]) Inhale 2 puffs into the lungs 2 (two) times daily. 33 g 5 Active Budeson-Glycop yrrol-Formoter ol (BREZTRI AEROSPHERE) 160-9-4.8 MCG/ACT AerosolIndicat ions:Centrilob ular emphysema ([facility]) Inhale 2 puffs into the lungs 2 (two) times daily. Rinse and spit after use 32.1 g 3 4 12/21/19 25 Discontinued budesonide-gly copyrrolate-fo rmoterol (BREZTRI AEROSPHERE) 160-9-4.8 MCG/ACT inhalerIndicat ions:Centrilob ular emphysema ([facility]) Inhale 2 puffs into the lungs 2 (two) times daily. 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 Lumbar hernia 12/22/2020 Immunizations Immunization Administration Dates Next Due Influenza Adult (Generic) 06/22/2020,05/31/2016 Pneumococcal (Prevnar 13) 09/21/2018 Td (TDVAX) 02/21/2017 Family History Medical History Relation Comments Depression Father CHF Mother COPD Mother Relation Status Comments Father Mother Social History Tobacco Use Types Packs/Day Years Used Date Smoking Tobacco: Former Cigarettes 1.5 50 1 - 09/07/2019 Smokeless Tobacco: Never Tobacco Cessation:Counseling Given: Yes Comments:Caused COPD and other health issues Alcohol Use Standard Drinks/Week Comments Not Currently 0 (1 standard drink = 0.6 oz pure alcohol) In a 12 step recovery program PHQ-2 Answer Date Recorded Patient Health Questionnaire-2 Score 0 12/26/2023 Comments Unknown Sex and Gender Information Value Date Recorded Sex Assigned at Not on file 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 Gender Identity Female 09/27/2021 11:01 AM BACKREST ASSEMBLER Sexual Orientation Straight 09/27/2021 11 :01 AM BACKREST ASSEMBLER Last Filed Vital Signs Vital Sign Reading Time Taken Comments Blood Pressure 137/74 06/25/2024 8:28 AM CDT Pulse 70 06/25/2024 8:01 AM CDT Temperature 36.4 C (97.6 F) 06/25/2024 8:01 AM CDT Respiratory Rate 18 06/25/2024 8:01 AM CDT Oxygen Saturation 97% 06/25/2024 8:01 AM CDT RA Inhaled Oxygen Concentration - - Weight 44.7 kg (98 lb 9.6 oz) 06/25/2024 8:01 AM CDT Height 157.5 cm (5' 2 ) 06/25/2024 8:01 AM CDT Body Mass Index 18.03 06/25/2024 8:01 AM CDT Plan of Treatment Upcoming Encounters Date Type Department Care Team (Late st Contact Info) Description 01/19/2025 8:20 AM CDT Office Visit [facility] - [address] [place] [address] Ernst Sellers MD [address] [place] [id number] Health Maintenance Due Date Last Done Comments Hepatitis C 1971 Zoster Vaccines (1 of 2) 1972 RSV Immunization or 60+ Years (1 - Risk 60-74 years 1-dose series) 2013 DTaP, Tdap and Td Vaccines (1 - Tdap) 02/22/2017 02/21/2017 Annual Medicare Wellness Visit 2018 Dexa Scan (General) 2018 Pneumococcal Vaccine: 50+ Years (2 of 2 - PPSV23) 11/16/2018 09/21/2018 Mammogram Screening 10/03/2019 10/03/2017, 10/03/2017, 05/18/2012, Additional history exists COVID-19 Vaccine (3 - Pfizer risk series) 02/06/2021 01/09/2021, 12/19/2020 PHQ-2 (Physician [place]) 09/08/2024 12/26/2023 Colorectal Cancer Screening Colonoscopy (10 Years) 06/26/2028 06/26/2018, 06/26/2018, 04/20/2009, Additional history exists Meningococcal B Vaccine Aged Out No l onger eligible based on patient's age to complete this topic Meningococcal Vaccine Aged Out No hua nicole eligible based on patient's age to complete this topic RSV Immunizations Under 20 Months Aged Out No longer eligible based on patient's age to complete this topic Procedures Procedure Name Priority Date/Time Associated Diagnosis Comments COLONOSCOPY GENERIC (SCAN ORDER) 06/26/2018 MAMMOGRAM GENERIC (SCAN ORDER) 10/03/2017 from Last 3 Months or Most Recently Relevant to Health Maintenance Results * COLONOSCOPY GENERIC (06/26/2018) 06/26/2018 Narrative 06/26/2018 Ordered by an unspecified provider. us Documents Scanned SCANNING Final Result * MAMMOGRAM GENERIC (10/03/2017) Anatomical Region Laterality Modality Other 10/03/2017 Narrative 10/03/2017 Ordered by an unspecified provider. us Documents Scanned SCANNING Final Result from Last 3 Months or Most Recently Relevant to Health Maintenance Insurance [employer] Care Teams Customer Order Clerk Relationship Specialty Start Date End Date Flaca Ch FNP PCP - General Nurse Practitioner Family 09/28/21
--- OUTSIDE RECORDS SUMMARY | 2025-01-03 09:17 | XMS_ITS | Clinical Summary ---
[facility] Address [address] [place] [address] Care Team Providers Care Computer Aide Name Role Phone Flaca Ch Primary Care Provider [phone] Allergies Active Allergy Reactions Criticality Noted Date Comments Penicillins Rash Low 11/15/2020 Sulfa (Sulfonamide Antibiotics) Rash Low 11/06 Medications albuterol HFA 90 mcg inhaler INHALE 1 PUFF BY MOUTH EVERY 4 HOURS NEEDED FOR SHORTNESS OF BREATH FOR WHEEZING 0 Active buPROPion HCL (WELLBUTRIN SR) 200 mg Sustained Release 12 hour tablet TAKE 1 TABLET BY MOUTH EVERY DAY IN THE MORNING AND 1 TABLET AT NOON 1 Active ipratropium-albut Tmoi (DUONEB) 0.5 mg-3 mg(2.5 mg base)/3 mL Solution for Nebulization INHALE 1 VIAL IN NEBULIZER EVERY 4 HOURS NEEDED FOR SHORTNESS OF BREATH 0 Active traZODone (DESYREL) 50 mg tablet TAKE 1 2 TO 2 TABLETS BY MOUTH ONCE DAILY AT BEDTIME 0 Active ibuprofen (MOTRIN) 200 mg tablet Take 200 mg by mouth every 6 hours as needed for Pain, Mild. Active pseudoephedrine (SUDAFED) 30 mg tablet Take 60 mg by mouth every 4 hours as needed for Congestion. Active multivitamin (DAILY-BRITTANY) tablet Take 1 Tablet by mouth daily. Active famotidine (PEPCID) 20 mg tablet Take 20 mg by mouth daily. Active diclofenac sodium (VOLTAREN) 75 mg Tablet, Delayed Release (E.C.) Take 75 mg by mouth 2 times daily. 2 Active benzonatate (TESSALON) 100 mg capsule TAKE 1 CAPSULE BY MOUTH THREE TIMES DAILY NEEDED FOR COUGH 2 Active Breztri Aerosphere 160-9-4.8 mcg/actuation HFA Aerosol Inhaler INHALE 2 PUFFS INTO THE LUNGS TWICE DAILY 3 Active alendronate (FOSAMAX) 70 mg tablet 3 Active amLODIPine (NORVASC) 10 mg tablet Take 1 Tablet by mouth daily. 4 Active vit A/vit C/vit E/zinc/copper (ICAPS AREDS ORAL) Take by mouth. Activ e Active Problems Problem Noted Date Diagnosed Date CLL (chronic lymphocytic leukemia) 12/11/2020 Essential thrombocytosis 11/15/2020 Resolved Problems Problem Noted Date Diagnosed Date Resolved Date Lymphocytosis 11/15/2020 12/11/2020 Encounters Date Type Department Care Team Description 10/26/2024 External Device Data [facility] ABSTRACTION Provider, Abstract 10/05/2024 External Device Data [facility] ABSTRACTION Provider, Abstract from Last 3 Months Family History Relation Name Status Comments Brother Alive Daughter Alive Father Mother Sister Alive Son 1 Alive Son 2 Alive Social History Tobacco Use Types Packs/Day Years Used Date Smoking Tobacco: Former Cigarettes 1 25 Smokeless Tobacco: Never Tobacco Cessation:Counseling Given: Not Answered Comments:quit 2018 Alcohol Use Standard Drinks/Week Comments Never 0 (1 standard drink = 0.6 oz pur e alcohol) Feeling Safe Answer Date Recorded Within the last year, have y ou been afraid of your partner or ex-partner? No 11/15/2020 Within the last year, have y ou been humiliated or emotionally abused in other ways by your partner or ex-partner? No Within the last year, have y ou been kicked, hit, slapped, or otherwise physically hurt by your partner or ex-partner? No 11/15/2020 Within the last year, have y ou been raped or forced to have any kind of sexual activity by your partner or ex-partner? No 11/15/2020 Social Connections Answer Date Recorded In a typical week, how many times do you talk on the phone with family, friends, or neighbors? More than three times a week 11/15/2020 How often do you get togethe r with friends or relatives? Three times a week 11/15/2020 How often do you attend chur ch or congregation services? More than 4 times per year 11/15/2020 Do you belong to any clubs o r organizations such as confucianism groups, unions, fraternal or athletic groups, or school groups? Yes 11/15/2020 How often do you attend meet ings of the clubs or organizations you belong to? More than 4 times per year 11/15/2020 Marital Status Not on file 11/15/2020 Financial Resource Strain Answer Date R ecorded How hard is it for you to pa y for the very basics like food, housing, medical care, and heating? Not hard at all 11/15/2020 Food Insecurity Answer Date Recorded Within the past 12 months, y ou worried that your food would run out before you got the money to buy more. Never true 11/16/19 21 Within the past 12 months, t he food you bought just didn't last and you didn't have money to get more. Never true 11/15/2020 Transportation Needs Answer Date Record ed In the past 12 months, has l ack of transportation kept you from medical appointments or from getting medications? No 11/06 In the past 12 months, has l ack of transportation kept you from meetings, work, or from getting things needed for daily living? 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 Gender Identity Not on file Sexual Orientation Not on file Last Filed Vital Signs Vital Sign Reading Time Taken Comments Blood Pressure 134/61 06/23/2024 10:47 AM CDT Pulse 78 06/23/2024 10:47 AM CDT Temperature 36.6 C (97.8 F) 06/23/2024 10:47 AM CDT Respiratory Rate 16 06/23/2024 10:47 AM CDT Oxygen Saturation 93% 06/23/2024 10:47 AM CDT Inhaled Oxygen Concentration - - Weight 44.5 kg (98 lb) 06/23/2024 10:47 AM CDT Height 154.9 cm (5' 1 ) 06/20/2022 10:16 AM CDT Body Mass Index 18.52 06/20/2022 10:16 AM CDT Plan of Treatment Upcoming Encounters Date Type Department Care Team (Late st Contact Info) Description 02/23/2025 10:15 AM CDT Office Visit [facility] Oncology [facility] H[facility]ology - [address] [facility] [address] [place] [address] Juanjo De Santiago MD [address] [place] [address] Health Maintenance Due Date Last Done Comments DTAP/TDAP/TD VACCINES (1 - Tdap) 1972 ZOSTER VACCINE (1 of 2) 1972 BREAST CANCER SCREENING 1993 FIT-DNA Q 3 years 1998 FIT/FOBT Q 1 year 1998 Flex Sig/CT Colonography Q 5 years 1998 RSV VACCINE (60+ or ) (1 - Risk 60-74 years 1-dose series) 2013 OSTEOPOROSIS SCREENING 2018 PNEUMOCOCCAL VACCINE 50+ YEARS (2 of 2 - PPSV23) 11/1609/21/2018 INFLUENZA VACCINE (#1) 2024 COLORECTAL SCREENING 06/26/2028 06/26/2018 Colorectal Cancer Screening 06/26/2028 Insurance [facility] Address: [address] [address] Care Teams Computer Aide Relationship Specialty Start Date End Date Flaca Ch FNP [address] [place] [address] PCP - General Nurse Practitioner Family 11/15/20
--- OUTSIDE RECORDS SUMMARY | 2025-01-03 09:17 | XMS_ITS | Referral Summary ---
Author Organization [facility] Address [address] [place] [address] Care Team Providers Care Washhouse Hand Name Role Phone Flaca Ch NP Primary Care Provider [phone] Allergies Active Allergy Reactions Criticality Noted Date Comments Penicillins Rash Reaction: Rash, Sulfa (Sulfonamide Antibiotics) Rash Reaction: Rash, Medications Ventolin HFA 90 mcg/actuation inhaler Inhale 2 puffs every 4 (four) hours as needed 09/04/20 20 Active buPROPion SR (WELLBUTRIN SR) 200 mg 12 hr tabletIndications :Anxiety with Depression Take 200 mg by mouth 2 (two) times a day 09/11/19 21 Active ipratropium-albut Tomi (DUO-NEB) 0.5-2.5 mg/3 mL nebulizer solutionIndicatio ns:Chronic Obstructive Pulmonary Disease with Bronchospasms Take 3 mL by nebulization as needed 08/28/20 20 Active traZODone (DESYREL) 50 mg tabletIndications :insomnia associated with depression Take 100 mg by mouth nightly 08/16/20 20 Active cyclobenzaprine (FLEXERIL) 5 mg tablet Take 5 mg by mouth 3 (three) times a day as needed for muscle spasms 10/31/19 21 Active tiotropium-olodat Tomi (Stiolto Respimat) 2.5-2.5 mcg/actuation inhalerIndication s:Bronchospasm Prevention with COPD Inhale 1 puff 2 (two) times a day Active multivitamin capsule Take 1 capsule by mouth daily with lunch Active pseudoephedrine (SUDAFED) 30 mg tabletIndications :Nasal Congestion Take 30 mg by mouth every 4 (four) hours as needed for congestion Active famotidine (PEPCID) 20 mg tablet Take 20 mg by mouth daily Active oxyCODONE (ROXICODONE) 5 mg immediate release tabletIndications :Pain TAKE ONE TO TWO TABLETS EVERY 6 to 8 HOURS PRN PAIN 30 tablet 01/05/20 21 Active Active Problems Problem Noted Date Diagnosed Date Complete rupture of rotator cuff 11/22/2020 Overview (11/22/2020): Added automatically from request for surgery [id number] Pain in shoulder 11/04/2014 Social History Tobacco Use Types Packs/Day Years Used Date Smoking Tobacco: Former Cigarettes 1.5 49.1 1 970 - 10/08/2018 Smokeless Tobacco: Never AUDIT-C Answer Date Recorded Q1: How often do you have a drink containing alc ohol? Never 11/22/2020 Q2: How many drinks containi ng alcohol do you have on a typical day when you are drinking? Patient declined 11/22/2020 Q3: How often do you have si x or more drinks on one occasion? Never 11/22/2020 Personal Safety Answer Date Recorded Getting School Help Needed Not on file 10/30 Comments No Sex and Gender Information Value Date Recorded Sex Assigned at Not on file Legal Sex Female 5:21 PM BEADER Gender Identity Female 01/16/2021 7:29 PM CDT Sexual Orientation Straight 09/27/2021 9: 51 AM BEADER Last Filed Vital Signs Vital Sign Reading Time Taken Comments Blood Pressure 149/89 12/04/2020 11:35 AM CDT Pulse 71 12/04/2020 11:35 AM CDT Temperature 36.3 C (97.3 F) 12/04/2020 11:35 AM CDT Respiratory Rate 15 12/04/2020 11:3 5 AM CDT Oxygen Saturation 95% 12/04/2020 11: 35 AM CDT Inhaled Oxygen Concentration - - Weight 46.7 kg (102 lb 14.4 oz) 12/04/2020 7:03 AM CDT Height 154.9 cm (5' 1 ) 12/04/2020 7:03 AM CDT Body Mass Index 19.44 12/04/2020 7:03 AM CDT Plan of Treatment Not on file Medical Devices Implanted Type Area Claims Clerk Device Identifier Shelf Expiration Date Model / Serial / Lot [employer] Ar-2267 Director Employee Communications Large Eyelet Pectoralis Button Fixation Latex Free - [id number] Implanted:Qty: 1 on 12/04/2020 by Michael Oleary MD at [facility] Right: Humerus [employer] 04/07/2025 AR-2267 / / [id number] [employer] Ar-1927bct Corkscrew Suturetape 5.5mm 14.7mm Bioabsorbable Full Thread 1.3mm - [id number] Implanted:Qty: 1 on 12/04/2020 by Michael Oleary MD at [facility] Right: Acromial Process [employer] 08/07/2022 [id number] / / [id number] [employer] Ar-1927bct Corkscrew Suturetape 5.5mm 14.7mm Bioabsorbable Full Thread 1.3mm - [id number] Implanted:Qty: 1 on 12/04/2020 by Michael Oleary MD at [facility] Right: Acromial Process [employer] 08/07/2022 AR-[id number] / / [id number] [employer] Ar-2324 Bcm Swivelock 4.75mm 24.5mm Self Punch Vent Shoulder Atkinson Suture - [id number] Implanted:Qty: 1 on 12/04/2020 by Michael Oleary MD at [facility] Right: Acromial Process [employer] 06/07/2024 AR-[id number] / / [id number] [employer] Ar-2324 Bcm Swivelock 4.75mm 24.5mm Self Punch Vent Shoulder Atkinson Suture - [id number] Implanted:Qty: 1 on 12/04/2020 by Michael Oleary MD at [facility] [place] Right: Acromial Process [employer] 09/07/2024 AR-[id number] / / [id number] Insurance CHOICE PLUS [facility] CHOICE PLUS [employer] COMPENSATION GENERIC Care Teams Washhouse Hand Relationship Specialty Start Date End Date Flaca Ch NP PCP - General Family Medicine 09/13/20
--- OUTSIDE RECORDS SUMMARY | 2025-01-03 09:17 | XMS_ITS | Clinical Summary ---
Author Organization [facility] Address [address] [place] [address] Care Team Providers Care Smoke Inspector Name Role Phone Flaca Ch NP Primary Care Provider [phone] Allergies Active Allergy Reactions Criticality Noted Date [...] (11/22/2020): Added automatically from request for surgery [id number] Pain in shoulder 11/04/2014 Surgical History Surgery Date Site/Laterality Comments HYSTERECTOMY 09/08/1997 - 09/07/1998 DILATION AND CURETTAGE OF UTERUS COLONOSCOPY CYST REMOVAL ON BACK Medical History Medical History Date Comments Depression Insomnia Covid-19 04/2020 now resolved COPD (chronic obstructive pulmonary disease) (HC C) mild-mod Allergic rhinitis GERD (gastroesophageal reflux disease) well controlled Family History Medical History Relation Name Comments Arthritis Child Family history of arthritis - (Added by TW Conv) Seizures Daughter Family history of seizures - (Added by TW Conv) Hypertension Father Family history of hypertension - (Added by TW Conv) Arthritis Mother Family history of arthritis - (Added by TW Conv) Bleeding Disorder Mother Family his tory of bleeding disorder - (Added by TW Conv) Relation Name Status Comments Child Daughter Father Mother Social History Tobacco Use Types [...] on file Legal Sex Female 5:21 PM OFFICE CLINICIAN Gender Identity Female 01/16/2021 7:29 PM CDT Sexual Orientation Straight 09/27/2021 9: 51 AM OFFICE CLINICIAN Obstetrics History Last Filed Vital Signs Vital Sign Reading [...] on file Medical Devices Implanted Type Area Nuclear Licensing Engineer Device Identifier Shelf Expiration Date Model / Serial / Lot Arthrex Inc Ar-2267 Professor Of Radiology Large Eyelet Pectoralis Button Fixation Latex Free - [id number] Implanted:Qty: 1 on 12/04/2020 by Michael Oleary MD at [facility] [place] Right: Humerus Arthrex Inc 04/07/2025 AR-2267 / / [id number] Arthrex Inc Ar-1927bct Corkscrew Suturetape 5.5mm 14.7mm Bioabsorbable Full Thread 1.3mm - [id number] Implanted:Qty: 1 on 12/04/2020 by Michael Oleary MD at [facility] [place] Right: Acromial Process Arthrex Inc 08/07/2022 AR-1927BCT / / [id number] Arthrex Inc Ar-1927bct Corkscrew Suturetape 5.5mm 14.7mm Bioabsorbable Full Thread 1.3mm - [id number] Implanted:Qty: 1 on 12/04/2020 by Michael Oleary MD at [facility] [place] Right: Acromial Process Ar[employer]rex Inc 08/07/2022 AR-1927BCT / / [id number] Arthrex Inc Ar-2324 Bcm Swivelock 4.75mm 24.5mm Self Punch Vent Shoulder [place] Suture - [id number] Implanted:Qty: 1 on 12/04/2020 by Michael Oleary MD at [facility] [place] Right: Acromial Process Ar[employer]rex Inc 06/07/2024 AR-2324BCM / / [id number] Arthrex Inc Ar-2324 Bcm Swivelock 4.75mm 24.5mm Self Punch Vent Shoulder [place] Suture - [id number] Implanted:Qty: 1 on 12/04/2020 by Michael Oleary MD at [facility] [place] Right: Acromial Process Ar[employer]rex Inc 09/07/2024 AR-2324BCM / / [id number] Insurance CHOICE PLUS CHOICE PLUS WORKERS COMPENSATION GENERIC Care Teams Smoke Inspector Relationship Specialty Start Date End Date Flaca Ch NP PCP - General Family Medicine 09/13/20
--- OUTSIDE RECORDS SUMMARY | 2025-01-03 09:17 | XMS_ITS | Encounter Summary ---
Author Organization [facility] Address [address] [place] [address] Care Team Providers Care Aerospace Control And Warning Systems Name Role Phone Flaca Ch [facility] Primary Care Provider Encounter Details Date Type Department Care Team (Late st Contact Info) Description 03/05/[address] [facility] [address], [place] [id number] [facility] Provider Air Quality Message Social History Tobacco Use Types Packs/Day Years Used Date Smoking Tobacco: Former Cigarettes 1.5 50 1 - 09/07/2019 Smokeless Tobacco: Never Alcohol Use Standard Drinks/Week Comments Not Currently 0 (1 standard drink = 0.6 oz pur e alcohol) PHQ-2 Answer Date Recorded Patient Health Questionnaire-2 Score 0 12/20/2022 Comments Unknown Sex and Gender Information Value Date Recorded Sex Assigned at Not on file Legal Sex Female 2:09 PM PHOTOGRAMMETRIC TECHNICIAN Gender Identity Female 09/27/2021 11:01 AM PHOTOGRAMMETRIC TECHNICIAN Sexual Orientation Straight 09/27/2021 11 :01 AM PHOTOGRAMMETRIC TECHNICIAN documented as of this encounter Plan of Treatment Upcoming Encounters Date Type Department Care Team (Late st Contact Info) Description 01/19/2025 8:20 AM CDT Office Visit [facility]ty [facility] - [address] [place] [address] Ernst Sellers MD [address] [place] [id number] documented as of this encounter Visit Diagnoses Not on filedocumented in this encounter Additional Health Concerns Assessment Noted Time PHQ-9 Depression Total Score: 2 09/28/19 22 8:37 AM PHOTOGRAMMETRIC TECHNICIAN documented as of this encounter Care Teams Aerospace Control And Warning Systems Relationship Specialty Start Date End Date Flaca Ch FNP PCP - General Nurse Practitioner Family 09/28/21 documented as of this encounter
== END ==
LOC: ANHLAB 08:52
PROVIDERS: PCP Nurse Practitioner Family; Visit Provider Otolaryngology
DX: D10.0 Benign neoplasm of lip (principal); K13.70 Unspecified lesions of oral mucosa
CPT/HCPCS: 88305

== ENCOUNTER 2025-01-25 10:29 | Outpatient (CLI) | payer OTHER, SELFPAY ==
--- NOTE | ~2025-01-25 | XR_ITS ---
3 VIEWS LUMBAR SPINE Ordering provider: Flaca Ch NP History: . M54.50 - Low back pain, unspecified X 5+ MON, NKI . Comparison: March 07, 2014 FINDINGS: VERTEBRAL BODIES: No visible fracture or subluxation. DISK SPACES: Narrowing of the disc L2-L3, L4-L5 and L5-S1. Facet joint disease at the level of L4-L5 and L5-S1. SOFT TISSUES: Atherosclerotic changes of the aorta. IMPRESSION: No acute osseous abnormality lumbar spine. Multilevel degenerative disc disease. Reviewed, dictated and finalized at location A.
--- OUTSIDE RECORDS SUMMARY | 2025-01-25 10:44 | XMS_ITS | Clinical Summary ---
Author Organization [facility] Address [address] [place] [address] Care Team Providers Care Title Investigator Name Role Phone Flaca Ch NP Primary Care Provider [phone] Allergies Active Allergy Reactions Criticality Noted Date [...] (11/22/2020): Added automatically from request for surgery [id number] Pain in shoulder 11/04/2014 Surgical History Surgery [...] on file Legal Sex Female 5:21 PM CHIEF EXECUTIVE Gender Identity Female 01/16/2021 7:29 PM CDT Sexual Orientation Straight 09/27/2021 9: 51 AM CHIEF EXECUTIVE Obstetrics History Last Filed Vital Signs Vital [...] on file Medical Devices Implanted Type Area Provider Relations Rep Device Identifier Shelf Expiration Date Model / Serial / Lot Arthrex Inc Ar-2267 Vocational Education Professional Large Eyelet Pectoralis Button Fixation Latex Free - [id number] Implanted:Qty: 1 on 12/04/2020 by Michael Oleary MD at [facility] Right: Humerus Ar[employer] Inc 04/07/2025 AR-2267 / / [id number] Ar[employer]rex Inc Ar-1927bct Corkscrew Suturetape 5.5mm 14.7mm Bioabsorbable Full Thread 1.3mm - [id number] Implanted:Qty: 1 on 12/04/2020 by Michael Oleary MD at [facility] Right: Acromial Process Ar[employer] Inc 08/07/2022 AR-1927BCT / / [id number] Ar[employer]rex Inc Ar-1927bct Corkscrew Suturetape 5.5mm 14.7mm Bioabsorbable Full Thread 1.3mm - [id number] Implanted:Qty: 1 on 12/04/2020 by Michael Oleary MD at [facility] Right: Acromial Process Ar[employer] Inc 08/07/2022 AR-1927BCT / / [id number] Ar[employer]rex Inc Ar-2324 Bcm Swivelock 4.75mm 24.5mm Self Punch Vent Shoulder [place] Suture - [id number] Implanted:Qty: 1 on 12/04/2020 by Michael Oleary MD at [facility] Right: Acromial Process Ar[employer] Inc 06/07/2024 AR-2324BCM / / [id number] Ar[employer] Inc Ar-2324 Bcm Swivelock 4.75mm 24.5mm Self Punch Vent Shoulder [place] Suture - [id number] Implanted:Qty: 1 on 12/04/2020 by Michael Oleary MD at [facility] [place] Right: Acromial Process Ar[employer] Inc 09/07/2024 AR-2324BCM / / [id number] Insurance CHOICE PLUS CHOICE PLUS WORKERS COMPENSATION GENERIC Care Teams Title Investigator Relationship Specialty Start Date End Date Flaca Ch NP PCP - General Family Medicine 09/13/20
--- OUTSIDE RECORDS SUMMARY | 2025-01-25 10:44 | XMS_ITS | Encounter Summary ---
Author Organization [facility] Address [facility] [place] [address] Care Team Providers Care Sort Worker Name Role Phone ParthaauroraVidhyaEvelyn PHOTO BOOTH OPERATOR Primary Care Provider Encounter Details Date Type Department Care Team (Late st Contact Info) Description 03/05/2023 MyChart Message Enc [facility] [address] [place], [place] [id number] [facility] Provider Air Quality Message Social History Tobacco [...] on file Legal Sex Female 2:09 PM MANAGER INTERFACE Gender Identity Female 09/27/2021 11:01 AM MANAGER INTERFACE Sexual Orientation Straight 09/27/2021 11 :01 AM MANAGER INTERFACE documented as of this encounter Plan of Treatment Upcoming Encounters Date Type Department Care Team (Late st Contact Info) Description 07/27/2025 9:00 AM MANAGER INTERFACE Office Visit [facility] - [place] [address] [place] [address] Ernst Sellers MD [address] [place] [address] documented as of this encounter Visit Diagnoses Not on filedocumented in this encounter Additional Health Concerns Assessment Noted Time PHQ-9 Depression Total Score: 2 09/28/19 22 8:37 AM MANAGER INTERFACE documented as of this encounter Care Teams Sort Worker Relationship Specialty Start Date End Date Flaca Ch FNP PCP - General Nurse Practitioner Family 09/28/21 documented as of this encounter
--- OUTSIDE RECORDS SUMMARY | 2025-01-25 10:44 | XMS_ITS | Clinical Summary ---
[facility] Address [address] [place] [address] Care Team Providers Care Risk Adjustment Specialist Name Role Phone Flaca Ch Primary Care Provider [phone] Allergies Active Allergy Reactions Criticality Noted Date [...] 1 TABLET AT NOON 1 Active ipratropium-albut Tomi (DUONEB) 0.5 mg-3 mg(2.5 mg base)/3 mL [...] Diagnosed Date Resolved Date Lymphocytosis 11/15/2020 12/11/2020 Family History Relation Name Status Comments Brother [...] week 11/15/2020 How often do you attend [facility] or protestant services? More than 4 times per year 11/15/2020 Do you belong to any clubs o r organizations such as religion groups, unions, fraternal or athletic groups, or [...] on file Legal Sex Female 2:59 PM FISH INSPECTOR Gender Identity Not on file Sexual Orientation [...] Description 02/23/2025 10:15 AM CDT Office Visit [facility] Oncology and Hematology - [place] [address] [place] [address] Juanjo De Santiago MD [address] [place] [address] Health Maintenance Due Date Last [...] 06/26/2028 06/26/2018 Colorectal Cancer Screening 06/26/2028 Insurance [facility] M[facility] Care Teams Risk Adjustment Specialist Relationship Specialty Start Date End Date Flaca Ch FNP [address] [place] [address] PCP - General Nurse Practitioner Family 11/15/20
--- OUTSIDE RECORDS SUMMARY | 2025-01-25 10:44 | XMS_ITS | Clinical Summary ---
Author Organization [facility] Address [facility] [place] [address] Care Team Providers Care Configuration Management Consultant Name Role Phone Flaca Ch [facility] Primary Care Provider [phone] Allergies Active Allergy Reactions Criticality Noted Date [...] (90 Base) MCG/ACT inhalerIndicat ions:Centrilob ular emphysema ([facility] HHS/HCC) Inhale 2 puffs into the lungs every 6 (six) hours as needed for Wheezing. 18 g 3 4 Active amLODIPine (NORVASC) 10 MG tablet Take 1 tablet (10 mg total) by mouth daily. 4 Active budesonide-gly copyrrolate-fo rmoterol (BREZTRI AEROSPHERE) 160-9-4.8 MCG/ACT inhalerIndicat ions:Centrilob ular emphysema ([facility] HHS/HCC) Inhale 2 puffs into the lungs 2 (two) times daily. 33 g 5 Active budesonide-gly copyrrolate-fo rmoterol (BREZTRI AEROSPHERE) 160-9-4.8 MCG/ACT inhalerIndicat ions:Centrilob ular emphysema ([facility] HHS/HCC) Inhale 2 puffs into the lungs 2 (two) times daily. 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 Lumbar hernia 12/22/2020 Encounters Date Type Department Care Team Description 01/20/2025 Telephone [facility] Multispecialty Care - [address], [address] [place] [address] Ernst Sellers MD Record Request 01/19/2025 8:20 AM CDT Office Visit [facility] Pulmonology Specialty Clinic - [address] [place] [address] Ernst Sellers MD Follow Up 01/19/2025 Travel 01/10/2025 Telephone [facility] Multispecialty Care - [address], [address] [place] [address] Ernst Sellers MD Orders 01/10/2025 Travel from Last 3 Months Immunizations Immunization Administration Dates Next Due Influenza Adult (Generic) 06/22/2020,05/31/2016 Pneumococcal (Prevnar 13) 09/21/2018 Td (TDVAX) 02/21/2017 Family History Medical History Relation Comments Alcohol Abuse Father Arthritis Father Depression Father Hypertension Father Mental Health Father Committed Suicid e 05/24/87! Alcohol Abuse Mother Arthritis Mother CHF Mother COPD Mother Cancer Mother Depression Mother Mental Health Mother Relation Status Comments Father Mother Social History Tobacco Use Types Packs/Day Years Used Date Smoking Tobacco: Former Cigarettes 1.5 50 1 - 09/07/2019 Smokeless Tobacco: Never Tobacco Cessation:Counseling Given: Yes Alcohol Use Standard Drinks/Week Comments Not Currently 0 (1 standard drink = 0.6 oz pure alcohol) In a 12 step recovery program PHQ-2 Answer Date Recorded Patient Health Questionnaire-2 Score 0 12/26/2023 Comments Unknown Sex and Gender Information Value Date Recorded Sex Assigned at Not on file Legal Sex Female 2:09 PM CONCENTRATOR OPERATOR Gender Identity Female 09/27/2021 11:01 AM CONCENTRATOR OPERATOR Sexual Orientation Straight 09/27/2021 11 :01 AM CONCENTRATOR OPERATOR Last Filed Vital Signs Vital Sign Reading Time Taken Comments Blood Pressure 154/69 01/19/2025 8:31 AM CDT Pulse 74 01/19/2025 8:15 AM CDT Temperature 36.8 C (98.2 F) 01/19/2025 8:15 AM CDT Respiratory Rate 18 01/19/2025 8:15 AM CDT Oxygen Saturation 97% 01/19/2025 8:15 AM CDT RA Inhaled Oxygen Concentration - - Weight 43.5 kg (96 lb) 01/19/2025 8:15 AM CDT Height 157.5 cm (5' 2 ) 01/19/2025 8:15 AM CDT Body Mass Index 17.56 01/19/2025 8:15 AM CDT Plan of Treatment Upcoming Encounters Date Type Department Care Team (Late st Contact Info) Description 07/27/2025 9:00 AM CONCENTRATOR OPERATOR Office Visit [facility] Pulmonology Specialty Clinic - [place] [address] [place] [address] Ernst Sellers MD [address] [place] [phone] Health Maintenance Due Date Last Done Comments [...] risk series) 02/06/2021 01/09/2021, 12/19/2020 PHQ-2 (Physician [place]) 09/08/2024 12/26/2023 Colorectal Cancer Screening Colonoscopy (10 [...] to Health Maintenance Insurance [employer] Care Teams Configuration Management Consultant Relationship Specialty Start Date End Date Flaca Ch FNP PCP - General Nurse Practitioner Family 09/28/21
--- OUTSIDE RECORDS SUMMARY | 2025-01-25 10:44 | XMS_ITS | Referral Summary ---
Author Organization [facility] Address [address] [place] [address] Care Team Providers Care Ball Winder Name Role Phone Flaca Ch NP Primary Care Provider [phone] Allergies Active Allergy Reactions Criticality Noted Date [...] (11/22/2020): Added automatically from request for surgery [id number] Pain in shoulder 11/04/2014 Social History Tobacco [...] on file Legal Sex Female 5:21 PM ASSISTANT PROFESSOR OF SURGERY Gender Identity Female 01/16/2021 7:29 PM CDT Sexual Orientation Straight 09/27/2021 9: 51 AM ASSISTANT PROFESSOR OF SURGERY Last Filed Vital Signs Vital Sign Reading [...] on file Medical Devices Implanted Type Area Electronic Test Technician Device Identifier Shelf Expiration Date Model / Serial / Lot Arthrex Inc Ar-2267 Director Of Home Care Hospice Large Eyelet Pectoralis Button Fixation Latex Free - [id number] Implanted:Qty: 1 on 12/04/2020 by Michael Oleary MD at [facility] Right: Humerus [employer]rex Inc 04/07/2025 AR-2267 / / [id number] Ar[employer] Inc Ar-1927bct Corkscrew Suturetape 5.5mm 14.7mm Bioabsorbable Full Thread 1.3mm - [id number] Implanted:Qty: 1 on 12/04/2020 by Michael Oleary MD at [facility] Right: Acromial Process Ar[employer]rex Inc 08/07/2022 AR-1927BCT / / [id number] Ar[employer] Inc Ar-1927bct Corkscrew Suturetape 5.5mm 14.7mm Bioabsorbable Full Thread 1.3mm - [id number] Implanted:Qty: 1 on 12/04/2020 by Michael Oleary MD at [facility] Right: Acromial Process Ar[employer] Inc 08/07/2022 AR-1927BCT / / [id number] Ar[employer] Inc Ar-2324 Bcm Swivelock 4.75mm 24.5mm Self Punch Vent Shoulder [place] Suture - [id number] Implanted:Qty: 1 on 12/04/2020 by Michael Oleary MD at [facility] [place] Right: Acromial Process Ar[employer] Inc 06/07/2024 AR-2324BCM / / [id number] Ar[employer]rex Inc Ar-2324 Bcm Swivelock 4.75mm 24.5mm Self Punch Vent Shoulder [place] Suture - [id number] Implanted:Qty: 1 on 12/04/2020 by Michael Oleary MD at [facility] [place] Right: Acromial Process Ar[employer] Inc 09/07/2024 AR-2324BCM / / [id number] Insurance [facility]PPO Address: [address] [place] [address] [facility] H[facility]/PPO Address: [place] [address] WORKERS COMPENSATION GENERIC Care Teams Ball Winder Relationship Specialty Start Date End Date Flaca Ch NP PCP - General Family Medicine 09/13/20
[2025-01-25 11:30] LABS: Cholesterol 200 mg/dL (0-200); HDL Direct 84 mg/dL; Triglycerides 72 mg/dL (<150)
[2025-01-25 11:41] LABS: LDL Cholesterol Direct 67 mg/dL
== END 2025-01-25 10:30 | disposition home or self-care (01) ==
PROVIDERS: PCP Nurse Practitioner Family; Visit Provider Nurse Practitioner Family
DX: E78.5 Hyperlipidemia, unspecified (principal); M54.50 Low back pain, unspecified
CPT/HCPCS: 36415; 72100; 80061

== ENCOUNTER 2025-02-21 10:32 | Outpatient (CLI) | payer OTHER, SELFPAY ==
[2025-02-21 10:51] LABS: Basophils Percent Auto 0.1 % (0.2-1.2); Eosinophils Absolute Auto 0.1 K/mm3 (0-0.3); Eosinophils Percent Auto 0.2 % (0-4.4); Hematocrit 38.9 % (37.0-47.0); Hemoglobin 12.3 g/dL (12.0-15.0); Immature Granulocyte Absolute 0.04 K/mm3 (0.00-0.031); Immature Granulocyte Percent A 0.1 % (0-0.5); Lymphocytes Absolute Auto 31.31 K/mm3 (0.9-3.2); Lymphocytes Percent Auto 88.8 % (18.3-44.2); Mean Corpuscular HGB Conc 31.6 g/dl (32-36); Mean Corpuscular Hemoglobin 29.9 pg (26-34); Mean Corpuscular Volume 94.6 fl (80-100); Mean Platelet Volume 7.8 fl (7.4-10.4); Monocytes Absolute Auto 0.3 K/mm3 (0.1-0.6); Monocytes Percent Auto 0.7 % (2.6-8.5); Neutrophils Absolute Auto 3.6 K/mm3 (1.3-6.7); Neutrophils Percent Auto 10.1 % (45.5-73.1); Platelet Count Result 366 k/mm3 (150-375); Red Blood Count 4.11 M/mm3 (4.2-5.4); Red Cell Distribution Width 12.3 % (11.5-14.5); White Blood Count 35.3 K/mm3 (4.5-10.0)
--- OUTSIDE RECORDS SUMMARY | 2025-02-21 11:27 | XMS_ITS | Clinical Summary ---
Author Organization [facility] Address [address] [facility] [place] [address] Care Team Providers Care Third Cook Name Role Phone Flaca Ch Primary Care Provider [phone] Allergies Active Allergy Reactions Criticality Noted Date [...] Encounters Date Type Department Care Team Description 02/15/2025 Telephone [facility] Oncology and Hematology - [place] [address] [facility] [address] [address] Juanjo De Santiago MD appointment 01/27/2025 External Device Data STL ABSTRACTION Provider, Abstract 01/26/2025 External Device Data [facility] ABSTRACTION Provider, Abstract 01/25/2025 External Device Data [facility] ABSTRACTION Provider, Abstract from Last 3 Months Family History Relation Name Status Comments Brother Alive Daughter Alive Father Mother Sister Alive Son 1 Alive Son 2 Alive Social History Tobacco Use Types Packs/Day Years Used Date Smoking Tobacco: Former Cigarettes 1 25 Smokeless Tobacco: Never Tobacco Cessation:Counseling Given: Not Answered Comments:quit 2019 Alcohol Use Standard Drinks/Week Comments Never 0 [...] 11/15/2020 How often do you attend chur or anglican services? More than 4 times per year 11/15/2020 Do you belong to any clubs o r organizations such as worship groups, unions, fraternal or athletic groups, or [...] on file Legal Sex Female 2:59 PM CIVIL PREPAREDNESS COORDINATOR Gender Identity Not on file Sexual Orientation [...] 10:47 AM CDT Height 154.9 cm (5' 1) 06/20/2022 10:16 AM CDT Body Mass Index 18.52 06/20/2022 10:16 AM CDT Plan of Treatment Upcoming Encounters Date Type Department Care Team (Late st Contact Info) Description 02/23/2025 10:15 AM CDT Office Visit [facility] Oncology and Hematology - [place] [address] [facility] [address] [place] [address] Juanjo De Santiago MD [address] [facility] [address] [place] [address] Health Maintenance Due Date Last [...] 06/26/2028 06/26/2018 Colorectal Cancer Screening 06/26/2028 Insurance [facility] Care Teams Third Cook Relationship Specialty Start Date End Date Flaca Ch FNP [address] [place] [address] [address] [place] [address] PCP - General Nurse Practitioner Family 11/15/20
--- OUTSIDE RECORDS SUMMARY | 2025-02-21 11:28 | XMS_ITS | Clinical Summary ---
Author Organization [facility] Address [address] [place] [address] Care Team Providers Care Embroidery Finisher Name Role Phone Flaca Ch NP Primary Care Provider [phone] Allergies Active Allergy Reactions Criticality Noted Date [...] (11/22/2020): Added automatically from request for surgery [id number] Pain in shoulder 11/04/2014 Surgical History Surgery [...] on file Legal Sex Female 5:21 PM SULFUR CHLORIDE OPERATOR Gender Identity Female 01/16/2021 7:29 PM CDT Sexual Orientation Straight 09/27/2021 9: 51 AM SULFUR CHLORIDE OPERATOR Obstetrics History Last Filed Vital Signs Vital [...] 7:03 AM CDT Height 154.9 cm (5' 1) 12/04/2020 7:03 AM CDT Body Mass Index 19.44 12/04/2020 7:03 AM CDT Plan of Treatment Not on file Medical Devices Implanted Type Area Venetian Blind Tape Cutter Device Identifier Shelf Expiration Date Model / Serial / Lot Arthrex Inc Ar-2267 Border Patrol Agent Large Eyelet Pectoralis Button Fixation Latex Free - [id number] Implanted:Qty: 1 on 12/04/2020 by Michael Oleary MD at [facility] [place] Right: Humerus [employer] Inc 04/07/2025 AR-2267 / / [id number] Ar[employer]rex Inc Ar-1927bct Corkscrew Suturetape 5.5mm 14.7mm Bioabsorbable Full Thread 1.3mm - [id number] Implanted:Qty: 1 on 12/04/2020 by Michael Oleary MD at [facility] [place] Right: Acromial Process [employer] 08/07/2022 AR-1927BCT / / [id number] Ar[employer] Ar-1927bct Corkscrew Suturetape 5.5mm 14.7mm Bioabsorbable Full Thread 1.3mm - [id number] Implanted:Qty: 1 on 12/04/2020 by Michael Oleary MD at [facility] [place] Right: Acromial Process [employer] 08/07/2022 AR-1927BCT / / [id number] Ar[employer] Ar-2324 Bcm Swivelock 4.75mm 24.5mm Self Punch Vent Shoulder [place] Suture - [id number] Implanted:Qty: 1 on 12/04/2020 by Michael Oleary MD at [facility] [place] Right: Acromial Process [employer] 06/07/2024 AR-2324BCM / / [id number] Ar[employer] Inc Ar-2324 Bcm [place]ivel[place] 4.75mm 24.5mm Self Punch Vent Shoulder [place] Suture - [id number] Implanted:Qty: 1 on 12/04/2020 by Michael Oleary MD at [facility] [place] Right: Acromial Process [employer] 09/07/2024 AR-2324BCM / / [id number] Insurance CHOICE PLUS CHOICE PLUS WORKERS COMPENSATION GENERIC Care Teams Embroidery Finisher Relationship Specialty Start Date End Date Flaca Ch NP PCP - General Family Medicine 09/13/20
--- OUTSIDE RECORDS SUMMARY | 2025-02-21 11:28 | XMS_ITS | Referral Summary ---
Author Organization [facility] Address [address] [place] [address] Care Team Providers Care Coat Fitter Name Role Phone Flaca Ch NP Primary Care Provider [phone] Allergies Active Allergy Reactions Criticality Noted Date [...] (11/22/2020): Added automatically from request for surgery [id number] Pain in shoulder 11/04/2014 Social History Tobacco [...] on file Legal Sex Female 5:21 PM MEDICINAL PLANT PICKER Gender Identity Female 01/16/2021 7:29 PM CDT Sexual Orientation Straight 09/27/2021 9: 51 AM MEDICINAL PLANT PICKER Last Filed Vital Signs Vital Sign Reading [...] on file Medical Devices Implanted Type Area Voice Data Communications Engineer Device Identifier Shelf Expiration Date Model / Serial / Lot Ar[employer]rex [employer] Ar-2267 Hedge Trimmer Large Eyelet Pectoralis Button Fixation Latex Free - [id number] Implanted:Qty: 1 on 12/04/2020 by Michael Oleary MD at [facility] Right: Humerus Ar[employer]rex Inc 04/07/2025 AR-2267 / / [id number] Ar[employer]rex [employer] Ar-1927bct Corkscrew Suturetape 5.5mm 14.7mm Bioabsorbable Full Thread 1.3mm - [id number] Implanted:Qty: 1 on 12/04/2020 by Michael Oleary MD at [facility] Right: Acromial Process Ar[employer]rex Inc 08/07/2022 AR-1927BCT / / [id number] [employer] Ar-1927bct Corkscrew Suturetape 5.5mm 14.7mm Bioabsorbable Full Thread 1.3mm - [id number] Implanted:Qty: 1 on 12/04/2020 by Michael Oleary MD at [facility] Right: Acromial Process [employer] 08/07/2022 AR-1927BCT / / [id number] Ar[employer] Ar-2324 Bcm Swivelock 4.75mm 24.5mm Self Punch Vent Shoulder [place] Suture - [id number] Implanted:Qty: 1 on 12/04/2020 by Michael Oleary MD at [facility] Right: Acromial Process [employer] 06/07/2024 AR-2324BCM / / [id number] [employer] Ar-2324 Bcm Swivelock 4.75mm 24.5mm Self Punch Vent Shoulder [place] Suture - [id number] Implanted:Qty: 1 on 12/04/2020 by Michael Oleary MD at [facility] [place] Right: Acromial Process [employer] 09/07/2024 AR-2324BCM / / [id number] Insurance CHOICE PLUS [facility] CHOICE PLUS WORKERS COMPENSATION GENERIC Care Teams Coat Fitter Relationship Specialty Start Date End Date Flaca Ch NP PCP - General Family Medicine 09/13/20
--- OUTSIDE RECORDS SUMMARY | 2025-02-21 11:28 | XMS_ITS | Data Portability ---
Author Organization [place] [facility], Main Office Address [address] [place] [address] Care Team Providers Care Gas Plant Technician Name Role Phone WAI OSPINA Primary Care Provider WAI OSPINA Referring Provider JOY AREVALO Coal Gasification Technician [phone] CHARLIE AMOS Coal Gasification Technician JIM WHITE Primary Care Provider JIM WHITE Referring Provider [phone] Assessment Encounter Date Assessment Date Assessment LastModified by Organization Details LastModified Time 02/19/2023 02/19/2023 HPI: 67-year-old female who came in today for evaluation of her left shoulder pain. She has been having pain for 2 or 3 months. She does not recall any injury or trauma that started this. Pain is relative to activity level. The more she uses the arm the more it hurts. She has been going to physical therapy that her primary care doctor ordered and she feels that therapy is only making her shoulder more painful. She feels pain deep inside the shoulder that will radiate down into the humerus. Patient has been taking ibuprofen 800 mg twice a day. She also takes hydrocodone occasionally. Primary care doctor gave her these. Physical exam: 67-year-old female alert pleasant. She is 5 ft 1 and 100 lb. BMI is 18.9. She has no effusion in the left shoulder. Elevation 140 with mild discomfort, external rotation 80 with no pain, internal rotation to T12 without pain. Subscap lift-off is intact. She has good strength with external rotation as well as abduction. Some mild pain with abduction strength testing. No tenderness about shoulder. No tenderness the AC joint. 2+ radial pulse. Neck range of motion is full without discomfort, negative Spurling's maneuver. 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 I discussed treatment options. She is comfortable with the ibuprofen twice a day this point. Recommended she stop therapy because I think this is causing worsening of her symptoms at this point. We talked about fluoroscopic guided injection in the glenohumeral joint and she would like to proceed with that today. These can be repeated as often as every 3 months. If she fails nonsurgical treatment next step would be shoulder replacement touched on this briefly as well. She asked about getting hydrocodone for pain I advised we do not give narcotics for arthritis pain. We will see her back as needed. 20 minutes was spent in treatment patient more than half of this in [id number] conversation [email or web address] Not available 02/19/2023 12:15:49 Plan of Treatment Reminders Order Date Submit Date Provider Last Modified By Organization Details Last Modified Time Details Appointments None recorded. Lab None recorded. Referral None recorded. Procedures None recorded. Surgeries None recorded. Imaging XR, shoulder [address] [facility] [place], [address], [place], [address], 16:44:37 Medication Orders None recorded. Patient TargetsNo targets recorded. Patient InstructionsNo instructions recorded. Reason for Referral None Reported. Results Created Date Observation Date Name Description Value Unit Range Abnormal Flag Note LastModifiedBy Organization Detail LastModifiedTime 02/20/20 23 XR, shoul brandon No observ ation record ed. [email or web address] [facility] [place] [address], [place], [address], 02/19/2023 12:02:29 02/26/20 23 02/25/2023 joint aspir ation (PROC ) No observ ation record ed. [email or web address] [facility] [address], [place], [address], 02/25/2023 17:20:11 Result Notes None recorded. Problems Name Problem SNOMED Code Status Onset Date Resolution Date Notes Provider Name and Address Organization Details Recorded Time Pain of right shoulder joint 99117352850291 100 Active 2019 Not Available [facility] 3 13:51:54 Disorder of rotator cuff 143172376 Active Not Available [facility] 3 13:51:54 Disorder of bursa of shoulder region 09357919 Active Not Available [facility] 3 13:51:54 Pain of left shoulder joint 08559188075237 109 Active 2022 BALTAZAR Brennan, [place] - [facility] 3 10:59:29 Problem Notes None recorded. Procedures Surgical History Date Name Laterality Status Provider Name and Address Organization Details Recorded Time Shoulder completed BALTAZAR Brennan [employer] 02/19/2023 10:56:40 Imaging Results None recorded. Procedure Notes None recorded. Medical Equipment None Reported. Allergies Allergen ID Allergen Name Allergen Category Reaction Reaction Severity Criticality Documentation Date Start Date Code Code System Note Provider Name and Address Organization Details Recorded Time 66362 Substance with sulfonami de structure and antibacte rial mechanism of action (substanc e) medicatio n rash Not available Not available 11/06/2022 87251 8003 SNOMED Not Available [facility] 3 13:53:05 45918 Product containin g penicilli n (product) medicatio n rash Not available Not available 11/06/2022 77479 8001 SNOMED Not Available [facility] 3 13:53:05 Medications Name Sig Start Date Stop Date Status Note LastModified by Organization Details LastModified Time losartan 50 mg tablet TAKE 1 TABLET BY MOUTH ONCE DAILY active Not Available Not Available No t Available prednisone 10 mg tablet take 1 tablet PO daily x 10days 02/19 completed Not Available Not Available Not Available ipratropium 0.5 mg-albutero l 3 mg (2.5 mg base)/3 mL nebulizatio n soln INHALE 1 VIAL IN NEBULIZER EVERY 4 HOURS NEEDED FOR SHORTNESS OF BREATH 02/19 completed Not Available Not Available Not Available clindamycin HCl 300 mg capsule TAKE 1 CAPSULE BY MOUTH EVERY 8 HOURS 07/17 completed Not Available Not Available Not Available citalopram 40 mg tablet 07/17 completed Not Available Not Available Not Available trazodone 50 mg tablet TAKE 1/2 TO 2 (ONE-HALF TO TWO)TABLE T BY MOUTH ONCE DAILY AT BEDTIME active Not Available Not Available No t Available oxybutynin chloride ER 10 mg tablet,exte nded release 24 hr TAKE 1 TABLET BY MOUTH ONCE DAILY active Not Available Not Available No t Available azithromyci n 250 mg tablet TAKE 2 TABLETS BY MOUTH ON DAY 1, AND THEN TAKE 1 TABLET BY MOUTH ONCE A DAY ON DAY 2 THROUGH DAY 5 02/19 completed Not Available Not Available Not Available fluconazole 150 mg tablet TAKE 1 TABLET BY MOUTH EVERY 72 HOURS 02/19 completed Not Available Not Available Not Available benzonatate 200 mg capsule TAKE 1 CAPSULE BY MOUTH THREE TIMES DAILY NEEDED FOR COUGH 07/17 completed Not Available Not Available Not Available clarithromy jez 500 mg tablet 07/17 completed Not Available Not Available Not Available hydrocodone 5 mg-acetamin ophen 325 mg tablet TAKE 1 TABLET BY MOUTH EVERY 12 HOURS NEEDED FOR PAIN active Not Available Not Available No t Available lisinopril 20 mg tablet TAKE 1 TABLET BY MOUTH ONCE DAILY 02/19 completed Not Available Not Available Not Available prednisone 20 mg tablet TAKE 2 TABLETS BY MOUTH ONCE DAILY 02/19 completed Not Available Not Available Not Available alendronate 70 mg tablet TAKE 1 TABLET BY MOUTH ONCE A WEEK active Not Available Not Available No t Available acetaminoph en 300 mg-codeine 30 mg tablet 07/17 completed Not Available Not Available Not Available ciprofloxac in 250 mg tablet TAKE 1 TABLET BY MOUTH EVERY 12 HOURS 07/17 completed Not Available Not Available Not Available amlodipine 5 mg tablet TAKE 1 TABLET BY MOUTH ONCE DAILY 02/19 completed Not Available Not Available Not Available tramadol 50 mg tablet TAKE 1 TABLET BY MOUTH EVERY 8 HOURS NEEDED FOR PAIN 07/17 completed Not Available Not Available Not Available Serevent Diskus 50 mcg/dose powder for inhalation INHALE 1 PUFF BY MOUTH EVERY 12 HOURS 02/19 completed Not Available Not Available Not Available benzonatate 100 mg capsule TAKE 1 CAPSULE BY MOUTH THREE TIMES DAILY NEEDED FOR COUGH 02/19 completed Not Available Not Available Not Available prednisone 2.5 mg tablet TAKE 2 TABS TWICE A DAY FOR 5 DAYS 1 TAB TWICE A DAY FOR 5 DAYS 1 TAB EVERY DAY FOR 5 DAYS AND THEN 1 TAB EVERY OTHER DAY FOR [address] 07/17 completed Not Available Not Available Not Available lisinopril 10 mg tablet 02/19 completed Not Available Not Available Not Available prednisone 50 mg tablet TAKE 1 TABLET BY MOUTH ONCE DAILY 07/17 completed Not Available Not Available Not Available Advair Diskus 250 mcg-50 mcg/dose powder for inhalation INHALE 1 DOSE BY MOUTH TWICE DAILY 02/19 completed Not Available Not Available Not Available levofloxaci n 500 mg tablet TAKE 1 TABLET BY MOUTH ONCE DAILY 02/19 completed Not Available Not Available Not Available methylpredn isolone 4 mg tablets in a dose pack TAKE BY MOUTH DIRECTED ON INSIDE OF PACKAGE 02/19 completed Not Available Not Available Not Available albuterol sulfate HFA 90 mcg/actuati on aerosol inhaler INHALE 2 PUFFS BY MOUTH EVERY 6 HOURS NEEDED FOR WHEEZING active Not Available Not Available No t Available losartan 100 mg tablet TAKE 1 TABLET BY MOUTH ONCE DAILY 02/19 completed Not Available Not Available Not Available fluticasone propionate 50 mcg/actuati on nasal spray,suspe nsion 07/17 completed Not Available Not Available Not Available doxycycline hyclate 100 mg tablet TAKE 1 TABLET BY MOUTH TWICE DAILY FOR 10 DAYS 07/17 completed Not Available Not Available Not Available bupropion HCl SR 200 mg tablet,12 hr sustained-r elease TAKE 1 TABLET BY MOUTH TWICE DAILY IN THE MORNING AND AT NOON active Not Available Not Available No t Available escitalopra m 20 mg tablet 07/17 completed Not Available Not Available Not Available nitrofurant oin monohydrate /macrocryst als 100 mg capsule TAKE 1 CAPSULE BY MOUTH EVERY 12 HOURS FOR 7 DAYS WITH FOOD OR MEAL 02/19 completed Not Available Not Available Not Available tizanidine 4 mg capsule TAKE 1 CAPSULE BY MOUTH THREE TIMES DAILY NEEDED FOR MUSCLE SPASM 02/19 completed Not Available Not Available Not Available Fluzone Quad (PF) 60 mcg (15 mcg x 4)/0.5 mL IM syringe PHARMACIS T ADMINISTE RED IMMUNIZAT ION ADMINISTE RED AT TIME OF DISPENSIN G 02/19 completed Not Available Not Available Not Available Breztri Aerosphere 160 mcg-9mcg-4. 8mcg/actuat ion HFA aerosol inhaler INHALE 2 PUFFS TWICE DAILY RINSE AND SPIT AFTER USE 02/19 completed Not Available Not Available Not Available BinaxNOW COVID-19 Ag Self Test kit Use as Directed on the Package 02/19 completed Not Available Not Available Not Available Paxlovid 300 mg (150 mg x 2)-100 mg tablets in a dose pack TAKE 3 TABLETS TOGETHER (TWO 150 MG NIRMATREL VIR TABLETS AND ONE 100 MG RITONAVIR TABLET) BY MOUTH TWICE DAILY FOR 5 DAYS. 02/19 completed Not Available Not Available Not Available Vitals Date Recorded Body height Body mass index (BMI) Body weight Provider Name and Address Organization Details Last Updated DateTime 02/19/2023 154.94 cm 18.9 kg/m2 82621.24 g BALTAZAR Brennan [facility] [employer] [facility] 02/19/2023 11:01:39 Social History None recorded. Functional Status Question Answer Note LastModified by Organization D etails LastModified Time What is your level of alcohol consumption? None Information not available 02/19/2023 Mental Status None recorded. Family History Relationship Description Onset Age of this Age Resolved Age Notes LastModified by Organization Details LastModified Time Paternal Grandmother Heart disease Not available 2022 10:54:21 Father Hypertensive disorder Not available 2022 10:54:33 Mother Pulmonary embolism [email or web address] Not available 2022 10:54:51 Unspecified Relation Diabetes mellitus grandd demond smith [email or web address] Not available 02/19/2023 10:55:29 Medical History Condition Response OSTEOPOROSIS Y ARTHRITIS Y HYPERTENSION Y CANCER: SPECIFY Y Gynecological HistoryNo gynecological history recorded. Obstetrics History GPAL:G 0 P 0 0 0 0 Past Encounters Encounter ID Performer Location Encounter Start Date Encounter Closed Date Diagnosis/Indication Diagnosis SNOMED-CT Code Diagnosis ICD10 Code Diagnosis Note [id number] Marco A Melgar MD [facility] [address] [place] [address] 02/19/2023 10:29:45 02/19/2023 16:44:37 Pain of left shoulder joint 6493076769 6347078 M25.512 Health Concerns Section Related Observation LastModified by Organization Detai ls LastModified Time None Recorded Concern Status LastModified by Organization Details LastModified Time None Recorded Advance Directives Directive None Recorded Payers Insurance Date Sequence Insurance Name Policy Number Policy Whitney Covered Member ID Whitney Member ID Guarantor Name 02/19/2023 1 [facility] (MEDICARE REPLACEMENT HMO) [id number] Chencho Conn [id number] Chencho Conn 02/06/2023 1 [facility] Chencho Conn [id number] Chencho Conn 11/06/2022 [employer] [id number] [employer] Chencho Conn 11/06/2022 [employer] Chencho Conn OBGyn Episode No OBEpisode recorded.
[2025-02-21 11:59] LABS: Anion Gap 6 mmol/L (4-12); Blood Urea Nitrogen 11 mg/dL (7-17); Calcium 9.5 mg/dL (8.4-10.2); Carbon Dioxide 29 mmol/L (22-30); Chloride 102 mmol/L (98-107); Estimated Glomerular Filt Rate > 60; Glucose 89 mg/dL (65-110); Potassium 4.2 mmol/L (3.4-5.0); Sodium 137 mmol/L (137-145)
== END 2025-02-21 10:33 | disposition home or self-care (01) ==
LOC: ANHLAB 10:33
PROVIDERS: PCP Family Medicine; Visit Provider Internal Medicine Hematology & Oncology
DX: C91.10 Chronic lymphocytic leukemia of B-cell type not having achieved remission (principal)
CPT/HCPCS: 36415; 80048; 85025

== ENCOUNTER 2025-06-23 09:50 | Outpatient (CLI) | payer OTHER, SELFPAY ==
[2025-06-23 10:02] LABS: Hematocrit 37.0 % (37.0-47.0); Hemoglobin 11.8 g/dL (12.0-15.0); Immature Granulocyte Percent A 0.1 % (0-0.5); Lymphocytes Absolute Auto 15.41 K/mm3 (0.9-3.2); Mean Corpuscular HGB Conc 31.9 g/dl (32-36); Mean Corpuscular Hemoglobin 30.1 pg (26-34); Mean Corpuscular Volume 94.4 fl (80-100); Nucleated Red Blood Cells Absolute Auto 0.000 K/mm3 (0.0-0.012); Nucleated Red Blood Cells Perc 0.0 % (0.0-0.2); Platelet Count Result 261 k/mm3 (150-375); Red Blood Count 3.92 M/mm3 (4.2-5.4); White Blood Count 18.7 K/mm3 (4.5-10.0)
--- OUTSIDE RECORDS SUMMARY | 2025-06-23 11:01 | XMS_ITS | Encounter Summary ---
Author Organization [facility] Address [facility] [place] [address] Care Team Providers Care Global Product Manager Name Role Phone Jing Evelyn [facility] Primary Care Provider Encounter Details Date Type Department Care Team (Late st Contact Info) Description 03/05/2023 MyChart Message Enc [facility] - [facility] [address] [place], [place] [id number] [facility] Provider Air Quality Message Social History [...] on file Legal Sex Female 2:09 PM MARINA PORTER Gender Identity Female 09/27/2021 11:01 AM MARINA PORTER Sexual Orientation Straight 09/27/2021 11 :01 AM MARINA PORTER documented as of this encounter Plan of Treatment Upcoming Encounters Date Type Department Care Team (Late st Contact Info) Description 06/28/2025 12:30 PM CDT Appointment [facility] [address] [place] [address] Ernst Sellers MD [address] [facility] [address] [place] [address] 07/27/2025 9:00 AM MARINA PORTER Office Visit [facility] - [address] [place] [address] Ernst Sellers MD 3 [facility] [address] [place] [address] documented as of this encounter Visit Diagnoses Not on filedocumented in this encounter Additional Health Concerns Assessment Noted Time PHQ-9 Depression Total Score: 2 09/28/19 22 8:37 AM MARINA PORTER documented as of this encounter Care Teams Global Product Manager Relationship Specialty Start Date End Date Flaca Ch FNP PCP - General Nurse Practitioner Family 09/28/21 documented as of this encounter
--- OUTSIDE RECORDS SUMMARY | 2025-06-23 11:01 | XMS_ITS | Clinical Summary ---
Author Organization [facility] Address [address] [place] [address] Care Team Providers Care Bevel Polisher Name Role Phone Flaca Ch NP Primary Care Provider Allergies Active Allergy Reactions [...] (11/22/2020): Added automatically from request for surgery [id number] Pain in shoulder 11/04/2014 Surgical History Surgery Date Site/Laterality Comments HYSTERECTOMY 09/08/1997 - 09/07/1998 DILATION AND CURETTAGE OF UTERUS COLONOSCOPY CYST REMOVAL ON BACK Medical History Medical History Date Comments Depression Insomnia Covid-19 04/2020 now resolved COPD (chronic obstructive pulmonary disease) mild-mod Allergic rhinitis GERD (gastroesophageal reflux disease) [...] on file Legal Sex Female 5:21 PM DIRECTOR CLOUD TRANSFORMATION Gender Identity Female 01/16/2021 7:29 PM CDT Sexual Orientation Straight 09/27/2021 9: 51 AM DIRECTOR CLOUD TRANSFORMATION Obstetrics History Last Filed Vital Signs Vital [...] on file Medical Devices Implanted Type Area Manager Workers Compensation Device Identifier Shelf Expiration Date Model / Serial / Lot [employer] Ar-2267 Motor Assembler Large Eyelet Pectoralis Button Fixation Latex Free - [id number] Implanted:Qty: 1 on 12/04/2020 by Michael Oleary MD at [facility] [place] Right: Humerus [employer] 04/07/2025 AR-2267 / / [id number] [employer] Ar-1927bct Corkscrew Suturetape 5.5mm 14.7mm Bioabsorbable Full Thread 1.3mm - [id number] Implanted:Qty: 1 on 12/04/2020 by Michael Oleary MD at [facility] [place] Right: Acromial Process [employer] 08/07/2022 AR-1927BCT / / [id number] [employer] Ar-1927bct Corkscrew Suturetape 5.5mm 14.7mm Bioabsorbable Full Thread 1.3mm - [id number] Implanted:Qty: 1 on 12/04/2020 by Michael Oleary MD at [facility] [place] Right: Acromial Process [employer] 08/07/2022 AR-1927BCT / / [id number] [employer] Ar-2324 Bcm Swivelock 4.75mm 24.5mm Self Punch Vent Shoulder [place] Suture - [id number] Implanted:Qty: 1 on 12/04/2020 by Michael Oleary MD at [facility] Right: Acromial Process [employer] 06/07/2024 AR-2324BCM / / [id number] [employer] Ar-2324 Bcm Swivelock 4.75mm 24.5mm Self Punch Vent Shoulder [place] Suture - [id number] Implanted:Qty: 1 on 12/04/2020 by Michael Oleary MD at [facility] [place] Right: Acromial Process [employer] 09/07/2024 AR-2324BCM / / [id number] Insurance CHOICE PLUS CHOICE PLUS WORK[employer] COMPENSATION GENERIC Care Teams Bevel Polisher Relationship Specialty Start Date End Date Flaca Ch NP PCP - General Family Medicine 09/13/20
--- OUTSIDE RECORDS SUMMARY | 2025-06-23 11:01 | XMS_ITS | Clinical Summary ---
Author Organization [facility] Address [facility] [place] [address] Care Team Providers Care Financial Consultant Name Role Phone Flaca Ch [facility] Primary Care Provider Allergies Active Allergy Reactions Criticality Noted Date Comments Penicillins Hives,Rash Low 09/28/2021 Sulfa Antibiotics Hives,Rash Low 09/28/2021 Medications buPROPion SR 200 MG TABLET SR 12 HR 12 hr tablet TAKE ONE TABLET BY MOUTH IN THE MORNING AND ONE TABLET AT NOON. 09/02/2021 Active ipratropium-alb uterol 0.5-2.5 (3) MG/3ML Solution 08/21/2021 Active traZODone 50 MG tablet TAKE 1/2 (ONE-HALF) TO 2 TABLETS BY MOUTH ONCE DAILY AT BEDTIME 08/20/2021 Active Spacer/Aero-Hol ding Chambers DeviceIndicatio ns:Centrilobula r emphysema (CMS/HCC [facility]) To be used with inhaler 1 each 01/28/2022 Active alendronate (FOSAMAX) 70 MG tablet Take 1 tablet (70 mg total) by mouth once a week. 12/10/2022 Active losartan (COZAAR) 100 MG tablet Take 1 tablet (100 mg total) by mouth daily. 12/17/2022 Active benzonatate (TESSALON) 100 MG capsule Take 1 capsule (100 mg total) by mouth 3 (three) times daily as needed. FOR COUGH 10/28/2022 Active HYDROcodone-jeremy taminophen (NORCO) 5-325 MG tablet Take 1 tablet by mouth every 12 (twelve) hours as needed. Active albuterol sulfate HFA 108 (90 Base) MCG/ACT inhalerIndicati ons:Centrilobul ar emphysema (CMS/[facility]) Inhale 2 puffs into the lungs every 6 (six) hours as needed for Wheezing. 18 g 3 12/26/2023 Active amLODIPine (NORVASC) 10 MG tablet Take 1 tablet (10 mg total) by mouth daily. 03/29/2024 Active budesonide-glyc opyrrolate-form oterol (BREZTRI AEROSPHERE) 160-9-4.8 MCG/ACT inhalerIndicati ons:Centrilobul ar emphysema ([facility]) Inhale 2 puffs into the lungs 2 (two) times daily. 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 [place] [address] [place] [address] Ernst Sellers MD 3 [facility] [address] [place] [address] 07/27/2025 9:00 AM CASH REGISTER OPERATOR Office Visit [facility] - [address] [place] [address] Ernst Sellers MD 3 [facility] [address] [place] [address] Health Maintenance Due Date Last Done Comments Hepatitis C 1971 Zoster Vaccines (1 of 2) 1972 RSV Immunization or 60+ Years (1 - Risk 60-74 years 1-dose series) 2013 DTaP, Tdap and Td Vaccines (1 - Tdap) 02/22/2017 02/21/2017 Annual Medicare Wellness Visit 2018 Dexa Scan (General) 2018 Pneumococcal Vaccine: 50+ Years (2 of 2 - PPSV23, PCV20, or PCV21) 11/16/2018 09/21/2018 Mammogram Screening 10/03/2019 10/03/2017, 10/03/2017, 05/18/2012, Additional history exists PHQ-2 (Physician [place]) 09/08/2024 12/26/2023 COVID-19 Vaccine ( - season) 2025 01/09/2021, 12/19/2020 Influenza Adult (#1) 2025 06/22/2020, 05/31/20 16 Colorectal Cancer Screening Colonoscopy (10 Years) 06/26/2028 06/26/2018, 06/26/2018, 04/20/2009, Additional history exists Hepatitis A Vaccines Aged Out No long er eligible based on patient's age to complete this topic Meningococcal B Vaccine Aged Out No l [...] to Health Maintenance Insurance [employer] Care Teams Financial Consultant Relationship Specialty Start Date End Date Flaca Ch FNP PCP - General Nurse Practitioner Family 09/28/21
--- OUTSIDE RECORDS SUMMARY | 2025-06-23 11:01 | XMS_ITS | Clinical Summary ---
Author Organization [facility] Address [address] [place] [address] Care Team Providers Care Linker Up Name Role Phone Flaca Ch Primary Care Provider [phone] Allergies Active Allergy Reactions Criticality Noted Date [...] Encounters Date Type Department Care Team Description 05/24/2025 External Device Data STL ABSTRACTION Provider, Abstract 04/26/2025 External Device Data STL ABSTRACTION Provider, Abstract 04/26/2025 External Device Data [facility] ABSTRACTION Provider, Abstract 04/13/2025 External Device Data ST[facility] ABSTRACTION Provider, Abstract 03/23/2025 External Device Data STL ABSTRACTION Provider, Abstract [...] often do you attend chur ch or holiness services? More than 4 times per year 11/15/2020 Do you belong to any clubs o r organizations such as holiness groups, unions, fraternal or athletic groups, or [...] on file Legal Sex Female 2:59 PM MICROWAVE REMOTE SENSING SCIENTIST Gender Identity Not on file Sexual Orientation Not on file Last Filed Vital Signs Vital Sign Reading Time Taken Comments Blood Pressure 101/45 02/23/2025 10:16 AM CDT Pulse 69 02/23/2025 10:13 AM CDT Temperature 36.7 C (98.1 F) 02/23/2025 10:13 AM CDT Respiratory Rate 15 02/23/2025 10:13 AM CDT Oxygen Saturation 90% 02/23/2025 10:13 AM CDT Inhaled Oxygen Concentration - - Weight 42.9 kg (94 lb 9.6 oz) 02/23/2025 10:13 A M CDT Height 154.9 cm (5' 1) 06/20/2022 10:16 AM CDT Body Mass Index 17.87 06/20/2022 10:16 AM CDT Plan of Treatment Upcoming Encounters Date Type Department Care Team (Late st Contact Info) Description 07/01/2025 10:00 AM CDT Office Visit [facility] [place] Oncology and Hematology - [place] [address] [facility] [address] [place] [address] Juanjo De Santiago MD [address] [facility] [employer] [address] [place] [address] Health Maintenance Due Date Last Done Comments DTAP/TDAP/TD VACCINES (1 - Tdap) 1972 ZOSTER VACCINE (1 of 2) 1972 BREAST CANCER SCREENING 1993 FIT-DNA Q 3 years 1998 FIT/FOBT Q 1 year 1998 Flex Sig/CT Colonography Q 5 years 1998 RSV VACCINE (60+ or ) (1 - Risk 50-74 years 1-dose series) 2003 OSTEOPOROSIS SCREENING 2018 PNEUMOCOCCAL VACCINE 50+ YEA RS (2 of 2 - PPSV23, PCV20, or PCV21) 11/16/2018 09/21/2018 INFLUENZA VACCINE (#1) 2025 COLORECTAL SCREENING 06/26/2028 06/26/2018 Colorectal Cancer Screening 06/26/2028 Insurance [facility] Address: [place] [address] Care Teams Linker Up Relationship Specialty Start Date End Date Flaca Ch FNP [address] [place] [address] PCP - General Nurse Practitioner Family 11/15/20
[2025-06-23 19:19] LABS: Anion Gap 6 mmol/L (4-12); Blood Urea Nitrogen 9 mg/dL (7-17); Calcium 9.2 mg/dL (8.4-10.2); Carbon Dioxide 28 mmol/L (22-30); Chloride 102 mmol/L (98-107); Estimated Glomerular Filt Rate > 60; Glucose 92 mg/dL (65-110); Potassium 4.1 mmol/L (3.4-5.0); Sodium 136 mmol/L (137-145)
== END 2025-06-23 09:51 | disposition home or self-care (01) ==
LOC: ANHLAB 09:51
PROVIDERS: PCP Nurse Practitioner Family; Visit Provider Internal Medicine Hematology & Oncology
DX: C91.10 Chronic lymphocytic leukemia of B-cell type not having achieved remission (principal)
CPT/HCPCS: 36415; 80048; 83615; 85025

== ENCOUNTER 2025-06-30 09:50 | Outpatient (CLI) | payer OTHER, SELFPAY ==
--- NOTE | ~2025-06-30 | MM_ITS ---
EXAMINATION: [place] screening [facility] [place] HISTORY: Screening TECHNIQUE: Craniocaudal and mediolateral oblique 3-D tomosynthesis images were obtained and synthetic 2-D images were generated. CAD analysis was submitted and interpreted. COMPARISON: Comparison to multiple prior studies sequentially, with oldest reviewed study dated 10/03/2017. BREAST PARENCHYMAL COMPOSITION: Not dense: There are scattered areas of fibroglandular density. FINDINGS: There is no evidence of suspicious mass, calcification, or architectural distortion to suggest malignancy in either breast. There has been no suspicious interval change. IMPRESSION: 1. No mammographic evidence of malignancy. 2. Recommend routine screening mammography in one year. BI-RADS Category 1: Negative Reviewed, dictated and finalized at location O.
--- NOTE | ~2025-06-30 | DEXA_ITS ---
Bone Density Report Name: NICKIE PALOMARES Age: 69 Sex: Female Ethnicity: White Date of : 1955 Indication: osteopenia; prior fracture; cancer; asthma or emphysema; hysterectomy; Referring Provider: CHARMAINE CHAN Study: Bone densitometry was performed. Exam Date: June 30, 2025 Accession number: [id number] Bone Density: Region BMD T-score Z-score Classification AP Spine(L1-L4) 0.857 -1.7 0.5 Osteopenia Femoral Neck (Left) 0.634 -1.9 0.0 Osteopenia Total Hip (Left) 0.731 -1.7 -0.1 Osteopenia Femoral Neck (Right) 0.578 -2.4 -0.5 Osteopenia Total Hip (Right) 0.725 -1.8 -0.2 Osteopenia Total Hip Mean 0.728 -1.8 -0.2 Osteopenia World Health Organization criteria for BMD impression classify patients as: Normal (T-score at or above -1.0), Osteopenia (T-score between -1.0 and -2.5), or Osteoporosis (T-score at or below -2.5). 10-year Fracture Risk(1): Major Osteoporotic Fracture 20% Hip Fracture 8.0% Reported Risk Factors: [place] (), Neck BMD=0.578, BMI=19.5, previous fracture, smoking (1) FRAX(R) Version 3.08. Fracture probability calculated for an untreated patient. Fracture probability may be lower if the patient has received treatment. Previous Exams: Region Exam Age BMD T-score BMD Change BMD Change Date g/cm2 vs Baseline vs Previous AP Spine (L1-L4) 06/30/2025 69 0.857 -1.7 0.033 (4.0%)* 0.033 (4.0%)* 08/20/2022 67 0.824 -2.0 Total Hip(Left) 06/30/2025 69 0.731 -1.7 0.006 (0.8%) 0.006 (0.8%) 08/20/2022 67 0.726 -1.8 Total Hip(Right) 06/30/2025 69 0.725 -1.8 0.052 (7.8%)* 0.052 (7.8%)* 08/20/2022 67 0.673 -2.2 *Denotes significance at 95% confidence level, LSC for AP Spine = 0.022 g/cm2, LSC for Total Hip = 0.027 g/cm2 Clinical Information Provided by Patient: Has had a low trauma fracture Smokes Has used the following medications: Vitamin D Has the following medical conditions: Asthma or Emphysema, Cancer, Hysterectomy Patient maximum height was 61 Menopause Age: 33 No regular weight bearing exercise Does not regularly consume dairy products Drinks caffeinated beverages Onset of menses at age 10 Number of children 3 Impression: The patient has low bone mass, based on the Right Femoral Neck T-score. The patient has an estimated ten-year risk of hip fracture of 8% and an estimated ten-year risk of major fracture of 20%, based on the WHO FRAX algorithm. The patient has risk factors, including: smoking, previous fracture. No significant bone loss was observed. Discussion: BONE DENSITY IS LOW AT ONE OR MORE SKELETAL SITES. THE PATIENT'S BMD AND CLINICAL RISK FACTORS CONTRIBUTE TO THIS PATIENT'S HIGH RISK OF FRACTURE. This patient's lowest T-score is low at one or more skeletal sites. It meets the World Health Organization's (WHO) criteria for ?low bone mass? (T-score between -1.0 and -2.5). The patient's 10-year risk of hip fracture and 10 year risk of a major osteoporotic fracture as calculated by FRAX exceeds the threshold where pharmacological therapy is recommended by the National Osteoporosis Foundation (NOF). However, all treatment decisions require clinical judgment and consideration of individual patient factors, including patient preferences, comorbidities, previous drug use, risk factors not captured in the FRAX model (e.g., frailty, falls, vitamin D deficiency, increased bone turnover, interval significant decline in bone density) and possible under or overestimation of fracture risk by FRAX. The patient should follow a healthful lifestyle (good nutrition with adequate calcium and vitamin D, and appropriate weight-bearing exercise). Follow-Up: Consider a repeat BMD and Vertebral Fracture Assessment (VFA) exam in 2 years or sooner if medically necessary, to reassess this patient's status. Reported by: NITIN on 06/30/2025 10:42:00 AM. Reviewed, dictated and finalized at location A.
--- OUTSIDE RECORDS SUMMARY | 2025-06-30 10:38 | XMS_ITS | Clinical Summary ---
Author Organization [facility] Address [address] [facility] [place] [address] Care Team Providers Care Barber Name Role Phone Flaca Ch Primary Care Provider [phone] Allergies Active Allergy Reactions Criticality Noted Date [...] Encounters Date Type Department Care Team Description 06/24/2025 Orders Only [facility] Oncology and Hematology - [place] [address] [place] [address] Juajno De Santiago MD 06/23/2025 Orders Only [facility] Oncology and Hematology - [place] [address] [place] [address] Juanjo De Santiago MD 05/24/2025 External Device Data STL ABSTRACTION Provider, [...] How often do you attend chur or bahai services? 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 Gender Identity Not on file Sexual Orientation [...] Description 07/01/2025 10:00 AM CDT Office Visit [facility] Oncology and Hematology [facility] [address] [facility] [address] [place] [address] Juanjo De Santiago MD [address] [facility] [address] [facility] [address] [place] [address] Health Maintenance Due Date Last [...] SCREENING 06/26/2028 06/26/2018 Colorectal Cancer Screening 06/26/2028 Procedures Procedure Name Priority Date/Time Associated Diagnosis Comments CBC WITH AUTODIFFERENTIAL Routine 2024 2:25 PM CDT BASIC METABOLIC PANEL Routine 06/23/2025 12:11 PM CDT from Last 3 Months Results * CBC WITH AUTODIFFERENTIAL (06/23/2025 2:25 PM CDT) Blood Juanjo De Santiago MD HEMATOLOGY ORDERABLES Final Res ult * BASIC METABOLIC PANEL (06/23/2025 12:11 PM CDT) Blood Juanjo De Santiago MD CHEMISTRY ORDERABLES Final Resu lt from Last 3 Months Insurance [facility] Address: [place] [address] Care Teams Barber Relationship Specialty Start Date End Date Flaca Ch FNP [address] [place] [address] PCP - General Nurse Practitioner Family 11/15/20
--- OUTSIDE RECORDS SUMMARY | 2025-06-30 10:38 | XMS_ITS | Clinical Summary ---
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 Obstetrics History Last Filed Vital Signs [...] on file Medical Devices Implanted Type Area Duplicating Machine Operator Device Identifier Shelf Expiration Date Model / Serial / Lot [employer] Ar-2267 Tractor Operator Helper Large Eyelet Pectoralis Button Fixation Latex Free - [id number] Implanted:Qty: 1 on 12/04/2020 by Michael Oleary MD at [facility] Right: Humerus [employer] 04/07/2025 AR-2267 / / [id number] [employer] Ar-1927bct Corkscrew Suturetape 5.5mm 14.7mm Bioabsorbable Full Thread 1.3mm - [id number] Implanted:Qty: 1 on 12/04/2020 by Michael Oleary MD at [facility] Right: Acromial Process [employer] 08/07/2022 AR-[id number] / / [id number] [employer] Ar-1927bct Corkscrew Suturetape 5.5mm 14.7mm Bioabsorbable Full Thread 1.3mm - [id number] Implanted:Qty: 1 on 12/04/2020 by Michael Oleary MD at [facility] Right: Acromial Process [employer] 08/07/2022 AR-[id number] / / [id number] [employer] Ar-2324 Bcm Swivelock 4.75mm 24.5mm Self Punch Vent Shoulder [place] Suture - [id number] Implanted:Qty: 1 on 12/04/2020 by Michael Oleary MD at [facility] Right: Acromial Process [employer] 06/07/2024 AR-[id number] / / [id number] [employer] Ar-2324 Bcm [place] 4.75mm 24.5mm Self Punch Vent Shoulder [place] Suture - [id number] Implanted:Qty: 1 on 12/04/2020 by Michael Oleary MD at [facility] Right: Acromial Process [employer] 09/07/2024 AR-[id number] / / [id number] Insurance CHO[employer] PLUS CHO[employer] COMPENSATION GENERIC Care Teams Downstairs Maid Relationship Specialty Start Date End Date Flaca Ch NP PCP - General Family Medicine 09/13/20
== END 2025-06-30 09:51 | disposition home or self-care (01) ==
PROVIDERS: PCP Nurse Practitioner Family; Visit Provider Nurse Practitioner Family
DX: Z12.31 Encounter for screening mammogram for malignant neoplasm of breast (principal); M85.89 Other specified disorders of bone density and structure, multiple sites; Z78.0 Asymptomatic menopausal state
CPT/HCPCS: 77063; 77067; 77080